=== PATIENT | female | born 1955 | race Caucasian/White ===

== ENCOUNTER 2017-12-27 15:08 | Inpatient (IN) ==
[2017-12-27] MEDS ORDERED: D5% in Water 1,000 ML IVC PRN (17:56)
[2017-12-27] MEDS ORDERED: *HR* Dextrose 50 % in Water (Syg) 50 ML SYRINGE IVP PRN (17:56)
[2017-12-27] MEDS ORDERED: Dextrose Gel 15 GM/37.5 ML TUBE PO PRN ×2 (17:56)
--- NOTE | 2017-12-27 18:01 | Anesthesia Evaluation PreOp ---
<Wiley Bhakta - Last Filed: 12/27/17 19:33> Date of Encounter: 12/27/17 Time of Encounter: 19:33 - Past History : No Medications and Allergies Amitriptyline [Elavil] 50 mg PO HS 12/27/17 [History] Aspirin 325 mg PO DAILY 12/27/17 [History] Calcitriol [Rocaltrol] 0.25 mcg PO DAILY 12/27/17 [History] Gabapentin [Neurontin] 300 mg PO TID 12/27/17 [History] Ginseng 250 mg PO DAILY 12/27/17 [History] Insulin NPH Hum/Reg Insulin Hm [Novolin 70-30 100 Unit/ml Vial] 35 unit SQ BID 12/27/17 [History] Lisinopril [Zestril] 5 mg PO DAILY 12/27/17 [History] Ranitidine HCl [Zantac] 150 mg PO DAILY 12/27/17 [History] Sertraline [Zoloft] 100 mg PO BID 12/27/17 [History] 3 Allergy/AdvReac Type Severity Reaction Status Date / Time ibuprofen [From Motrin] Allergy Rash Verified 12/27/17 13:25 Anesthesia Results - Labs 12/27/17 18:21 12/27/17 18:21 Anesthesia Exam - HEENT Pupil (Motor): Pupils equal, EOMI Mallampati: III Teeth: Edentulous Denture Type: Upper: Complete, Lower: Complete Oral Opening: Greater than 3 - MANAGER FLOAT MANAGER FLOAT Motor: Normal RUE, Normal LUE, Normal RLE, Normal LLE, Normal Face MANAGER FLOAT Sensory: Normal: RUE, LUE, RLE, LLE, Face - Cardiac Rhythm: Regular Murmur: None JVD: No Carotid Bruit: No - Pulmonary Breath Sounds: bilateral Clear Respiratory Effort: Symmetrical Anesthesia Assess/Plan ASA Score: 3 Modified [place] Scale for Level of Consciousness: Cooperative, oriented, and tranquil Anesthetic Plan: MAC Autologous Blood: Yes Monitoring Plan: Standard Monitors Recovery Plan: Other <Elgin Echevarria - Last Filed: 12/27/17 19:44> Date of Encounter: 12/27/17 - Past History Planned Operation: I & D Right Foot Cardiac History: HTN Pulmonary History: Smoker MANAGER FLOAT History: Denies Any Significant HX Other Medical History: Diabetes Type II, GERD Anesthesia History: No Prior Anesthetic Complications, Past Anesthesia Alcohol Use: occasionally Drug use: none - Meds/Allergy Pre-op Review Medications Reviewed: Yes Allergies Reviewed: Yes Beta Blockers on Current Med List: No Anesthesia Results - Labs 12/27/17 18:21 12/27/17 18:21 Laboratory Tests 12/27/17 12/27/17 13:48 13:48 WBC 17.3 H Hgb 11.9 Hct 35.4 Plt Count 320 Sodium 124 L Potassium 5.8 H BUN 29 H Creatinine 2.39 H Anesthesia Exam Vital Signs/O2 Sat/Glucose, Most Recent Temp Pulse Resp BP Pulse Ox 98.6 F 59 18 93/55 95 12/27/17 17:31 12/27/17 17:31 12/27/17 17:31 12/27/17 17:31 12/27/17 17:31 Blood Glucose* 184 Height: 5'9''/1.75 m Weight: 227 lbs/103 kg NPO (# of Hours): 8 Pain Scale: 0 Pain Scale Used: Numeric (1 - 10) - MANAGER FLOAT LOC: Oriented MANAGER FLOAT Motor: Normal RUE, Normal LUE, Normal RLE, Normal LLE, Normal Face MANAGER FLOAT Sensory: Normal: RUE, LUE, Face, Deficit: RLE, LLE
[2017-12-27 18:35] LABS: Basophils # 0.1 K/mcL (0.0-0.2); Basophils % 0.3 %; Eosinophils # 0.1 K/mcL (0.0-0.6); Eosinophils % 0.4 %; Hematocrit 33.7 % (35.3-44.9); Hemoglobin 10.9 g/dL (11.5-15.4); Immature Granulocytes % 0.9 % (0-4); Lymphocytes # 1.8 K/mcL (0.6-4.6); Lymphocytes % 11.1 %; Mean Corpuscular HGB Conc 32.3 g/dL (31.6-35.5); Mean Corpuscular Hemoglobin 27.5 pg (28.0-33.3); Mean Corpuscular Volume 85.1 fL (83.0-100.0); Mean Platelet Volume 9.8 fL (9.4-12.4); Monocytes # 1.4 K/mcL (0.0-1.3); Monocytes % 8.9 %; Neutrophils # 12.5 K/mcL (1.6-8.9); Platelet Count 307 K/mcL (140-400); Red Blood Count 3.96 M/mcL (3.82-4.97); Red Cell Distribution Width 12.9 % (11.5-14.5); Segmented Neutrophils % 78.4 %
[2017-12-27 18:57] LABS: Albumin 3.1 g/dL (3.5-5.7); Albumin/Globulin Ratio 0.7 (1.1-2.2); Bilirubin,Direct 0.3 mg/dL (0.0-0.2); Bilirubin,Indirect 0.1 mg/dL (0.0-1.2); Bilirubin,Total 0.4 mg/dL (0.3-1.0); Calcium 8.7 mg/dL (8.6-10.3); Globulin 4.3 g/dL (2.4-3.5); Magnesium 1.6 mg/dL (1.6-2.6); Potassium 4.5 mEq/L (3.5-5.1); Total Protein 7.4 g/dL (6.4-8.9)
[2017-12-27] MEDS ORDERED: Bupivacaine/Clonidine Syringe 1 EACH SYRINGE ONE (19:19)
--- NOTE | 2017-12-27 19:23 | Podiatry Consult Note ---
Date of Encounter: 12/27/17 Time of Encounter: 19:19 Assessment and Plan (1) Osteomyelitis of foot, right, acute Current visit: No Status: Acute Due to the likely osteomyelitis/infection/gas in the tissue we will pursue early surgical intervention. Incision and drainage was discussed with the patient. The patient was also instructed that she may have a large laceration on the plantar aspect of her foot to debride any and necrotic tissue. The patient related understanding. I instructed the patient also that there is a possibility that this salvage procedure being performed tonight will not be successful and that she may require amputation at a later time. The patient was also instructed that she needs to control her blood glucose levels more appropriately to be able to heal. The patient was instructed that there is a good probability that she will not heal and will have continued infection if she does not control her glucose more carefully. The patient related understanding. The exact procedure discussed was inches and drainage with debridement and irrigation of the left foot ulceration sites with possible amputation/resection of bone.Patient was informed of the risks and complications of surgery. These may include but are not limited to the following ; nerve damage, numbness, tingling, RSD/CRPS, loss of motor function, loss of toe, loss of limb, loss of life, ischemia, wound healing issues, infection, scarring, keloid formation, continued pain, arthritis, non-union, mal-union, prominent hardware, displaced hardware, reaction to hardware, the need to remove hardware, bruising, continued limp, the need for future surgery, over correction, under correction, chronic swelling, the need for physical therapy, stiffness of joints, ulceration, slow healing, wound dehiscence, reaction to implant, reaction to sutures. The patient was informed of the possible conservative treatments available which may include but are not limited to the following: Orthotics, bracing, non -weight bearing, physical therapy, padding, taping, steroid injections, NSAIDS, casting. The patient was given the option to seek a second opinion. It was explained that surgery is an art and not an exact science therefore results cannot be guaranteed. All the patients questions and concerns were addressed. Patient agrees to have the surgery despite the possible risks and complications. Absolutely no guarantees were given or implied. History of Present Illness Chief complaint: ulcerations bilateral feet. HPI: Ms. Vallejo is a 62 year old female who states that she does not control her blood sugar very well. Patient relates that she does not use her diabetic shoes very often. Patient relates that she has multiple ulcers on her feet. Patient relates that recently her left foot began to show signs of infection and presented to the emergency department due to that. Past Med Surg Social Fam HX - Past Medical History Medical history: arthritis, COPD, diabetes, hypertension, thyroid disease Psychiatric history: no psych history - Social History Smoking Status: Former smoker Alcohol use: occasionally Drug use: none Medications and Allergies Amitriptyline [Elavil] 50 mg PO HS 12/27/17 [History] Aspirin 325 mg PO DAILY 12/27/17 [History] Calcitriol [Rocaltrol] 0.25 mcg PO DAILY 12/27/17 [History] Gabapentin [Neurontin] 300 mg PO TID 12/27/17 [History] Ginseng 250 mg PO DAILY 12/27/17 [History] Insulin NPH Hum/Reg Insulin Hm [Novolin 70-30 100 Unit/ml Vial] 35 unit SQ BID 12/27/17 [History] Lisinopril [Zestril] 5 mg PO DAILY 12/27/17 [History] Ranitidine HCl [Zantac] 150 mg PO DAILY 12/27/17 [History] Sertraline [Zoloft] 100 mg PO BID 12/27/17 [History] 3 Allergy/AdvReac Type Severity Reaction Status Date / Time ibuprofen [From Motrin] Allergy Rash Verified 12/27/17 13:25 All Systems Reviewed: The remainder of the systems were reviewed and are negative Physical Exam - Constitutional Vitals: Temp Pulse Resp BP Pulse Ox 100.1 F H 112 17 94/74 94 12/27/17 19:02 12/27/17 19:02 12/27/17 19:02 12/27/17 19:02 12/27/17 19:02 Exam: Pedal pulses faintly palpable. Capillary fill time intact to digits 1 through 5 bilaterally. There are no open lesions, abrasions, or ulcerations of the rear foot, there are only ulcerations on the plantar aspect of the left and right forefoot. Multiple ulcerations are noted measuring from 1 cm in diameter to 2 cm in diameter with fluctuance and purulence on the left foot ulceration sites. Radiographic exam confirms the ulceration sites. Sensation significantly diminished consistent with peripheral neuropathy. The patient is awake, alert, and oriented 3 and appears to be in no acute distress. Results - Labs Result Diagrams: 12/27/17 18:21 12/27/17 18:21 Labs: Abnormal lab results WBC 15.9 K/mcL (4.3-11.1) H 12/27/17 18:21 Hgb 10.9 g/dL (11.5-15.4) L 12/27/17 18:21 Hct 33.7 % (35.3-44.9) L 12/27/17 18:21 MCH 27.5 pg (28.0-33.3) L 12/27/17 18:21 Neutrophils # 12.5 K/mcL (1.6-8.9) H 12/27/17 18:21 Monocytes # 1.4 K/mcL (0.0-1.3) H 12/27/17 18:21 Sodium 131 mEq/L (136-145) L 12/27/17 18:21 Carbon Dioxide 20 mEq/L (23-29) L 12/27/17 18:21 BUN 28 mg/dL (8-23) H 12/27/17 18:21 Creatinine 2.35 mg/dL (0.60-1.20) H 12/27/17 18:21 Est GFR ( Amer) 25 (> 60) L 12/27/17 18:21 Est GFR (Non-Af Amer) 21 (> 60) L 12/27/17 18:21 Glucose 175 mg/dL (70-105) H 12/27/17 18:21 Direct Bilirubin 0.3 mg/dL (0.0-0.2) H 12/27/17 18:21 AST 7 Units/L (13-39) L 12/27/17 18:21 Albumin 3.1 g/dL (3.5-5.7) L 12/27/17 18:21 Globulin 4.3 g/dL (2.4-3.5) H 12/27/17 18:21 Albumin/Globulin Ratio 0.7 (1.1-2.2) L 12/27/17 18:21 H & H 12/27/17 Range/Units 18:21 Hgb 10.9 L (11.5-15.4) g/dL Hct 33.7 L (35.3-44.9) % All other labs normal. Consult Discharge Plan - Plan Referrals: Elgin Hernandez CNP [Primary Care Provider] -
--- NOTE | 2017-12-27 19:44 | Internal Med History&Physical ---
Date of Encounter: 12/27/17 Time of Encounter: 19:00 Assessment and Plan (1) Osteomyelitis of foot, right, acute Current visit: No Status: Acute Patient reports of gradually worsening erythema, swelling and pain in her left foot in addition to drainage which is greenish/yellowish. Foot x-ray showed subcutaneous gas throughout the soft tissue of the distal forefoot centered at the second digit compatible with underlying gas-forming infectious process. Also noted was lucency of the base of the first proximal phalanx is suggestive of erosion of the second metatarsal head suspicious for osteomyelitis. Podiatry was consulted with recommendations for immediate surgical intervention due to suspicion for osteomyelitis/infection/gas. She will also be started on IV vancomycin and Zosyn until cultures known. (2) Uncontrolled diabetes mellitus Current visit: Yes Status: Acute Patient is a 62-year-old female with past medical history of uncontrolled diabetes (A1c 13.2) Will place on sliding scale insulin and monitor for tight glucose control Qualifiers: Diabetes mellitus type: type 2 Qualified Code(s): E11.65 - Type 2 diabetes mellitus with hyperglycemia; Z79.4 - prison (current) use of insulin; Z79.4 - long term (current) use of insulin; Z79.4 - prison (current) use of insulin ; Z79.4 - prison (current) use of insulin (3) CKD (chronic kidney disease) stage 3, GFR 30-59 ml/min Current visit: Yes Status: Acute Creatinine 2.35 today which is close to baseline Will continue to monitor (4) HTN (hypertension), benign Current visit: Yes Status: Acute Controlled; continue home medications (5) Mood disorder Current visit: Yes Status: Acute Continue home medications Internal Medicine - H&P: HPI Chief complaint: Left foot pain Plans for Post Hospital Care: Home History of present illness: Patient is a 62-year-old female with past medical history of uncontrolled diabetes (A1c 13.2), chronic kidney disease stage III, hypertension and obesity (BMI 33.6) who presents to [facility] on 12/27/17 due to left foot pain and swelling. Patient states that she had a callus on her left foot which she picked at and since then, has had gradually worsening erythema, swelling and pain in her left foot. Patient also reports of drainage which is greenish/yellowish. Foot x-ray showed subcutaneous gas throughout the soft tissue of the distal forefoot centered at the second digit compatible with underlying gas-forming infectious process. Also noted was lucency of the base of the first proximal phalanx is suggestive of erosion of the second metatarsal head suspicious for osteomyelitis. Podiatry was consulted with recommendations for immediate surgical intervention due to suspicion for osteomyelitis/infection/gas. She will also be started on IV vancomycin and Zosyn until cultures known. Past Med Surg Social Fam HX - Past Medical History Medical history: arthritis, COPD, diabetes, hypertension, thyroid disease Psychiatric history: no psych history - Past Surgical History Surgical History: non-contributory - Social History Smoking Status: Former smoker Alcohol use: occasionally Drug use: none Internal Medicine - H&P: Meds Amitriptyline [Elavil] 50 mg PO HS 12/27/17 [History] Aspirin 325 mg PO DAILY 12/27/17 [History] Calcitriol [Rocaltrol] 0.25 mcg PO DAILY 12/27/17 [History] Gabapentin [Neurontin] 300 mg PO TID 12/27/17 [History] Ginseng 250 mg PO DAILY 12/27/17 [History] Insulin NPH Hum/Reg Insulin Hm [Novolin 70-30 100 Unit/ml Vial] 35 unit SQ BID 12/27/17 [History] Lisinopril [Zestril] 5 mg PO DAILY 12/27/17 [History] Ranitidine HCl [Zantac] 150 mg PO DAILY 12/27/17 [History] Sertraline [Zoloft] 100 mg PO BID 12/27/17 [History] 3 Allergy/AdvReac Type Severity Reaction Status Date / Time ibuprofen [From Motrin] Allergy Rash Verified 12/27/17 13:25 All Systems PM: A 10-system review of systems was performed and is negative for pertinent findings except as documented above in the HPI. - Constitutional Vitals: Temp Pulse Resp BP Pulse Ox 100.1 F H 112 17 94/74 94 12/27/17 19:02 12/27/17 19:02 12/27/17 19:02 12/27/17 19:02 12/27/17 19:02 General appearance: Present: A&O X 3 - Head Head exam: Present: normocephalic - Eye Eye exam: Present: normal appearance - ENT ENT exam: Present: mucous membranes moist - Respiratory Respiratory exam: Present: CTAB. Absent: accessory muscle use, rales, rhonchi, wheezes - Cardiovascular Cardiovascular exam: Present: RRR, +S1, +S2. Absent: diastolic murmur, gallop, rubs, systolic murmur - GI/Abdominal GI/Abdominal exam: Present: normal bowel sounds, soft, no peritoneal signs. Absent: distended, tenderness - Expanded Lower Extremities Exam Foot/Toe exam: Present: swelling, tenderness (Erythematous and edematous left foot with foul smell) - Neurological Exam Neurological exam: Present: oriented X3 - Psychiatric Psychiatric exam: Present: normal mood - Skin Skin exam: Present: erythema (Left foot) Internal Med - H&P Results - Labs CBC & Chem 7: 12/27/17 18:21 12/27/17 18:21 Labs: Short CBC 12/27/17 Range/Units 18:21 WBC 15.9 H (4.3-11.1) K/mcL Hgb 10.9 L (11.5-15.4) g/dL Hct 33.7 L (35.3-44.9) % Plt Count 307 (140-400) K/mcL Neutrophils # 12.5 H (1.6-8.9) K/mcL BMP 12/27/17 18:21 Sodium 131 L Potassium 4.5 Chloride 101 Carbon Dioxide 20 L BUN 28 H Creatinine 2.35 H Glucose 175 H Calcium 8.7 Liver Function 12/27/17 Range/Units 18:21 Total Bilirubin 0.4 (0.3-1.0) mg/dL Direct Bilirubin 0.3 H (0.0-0.2) mg/dL AST 7 L (13-39) Units/L ALT 8 (7-52) Units/L Alkaline Phosphatase 96 (34-104) Units/L Albumin 3.1 L (3.5-5.7) g/dL
[2017-12-27] MEDS ORDERED: Propofol 500 MG/50 ML INFUS..BTL ONE (19:53)
[2017-12-27] MEDS ORDERED: Naloxone 0.4 MG/ML INJ IVP PRN (20:04)
[2017-12-27] MEDS ORDERED: *HR* FentaNYL (PF) 100 MCG/2 ML VIAL ONE (20:10)
[2017-12-27] MEDS ORDERED: Dexamethasone 4 MG/ML VIAL ONE (20:19)
[2017-12-27] MEDS ORDERED: Ondansetron 4 MG/2 ML VIAL ONE (20:19)
[2017-12-27] MEDS ORDERED: Insulin LISPRO 300 UNITS/3 ML VIAL SQ SCH (21:00)
[2017-12-27] MEDS ORDERED: Acetaminophen 325 MG TABLET PO PRN (22:03)
[2017-12-27] MEDS: *HR* HYDROcodone/Acet 5/325 mg TABLET PO PRN (22:39)
--- NOTE | 2017-12-27 23:36 | Event Note ---
Date of Encounter: 12/27/17 Time of Encounter: 21:46 Alerted by patient's nurse Chary that patient was post I&D and complaining of 7/10 pain in her foot. Patient also was nothing by mouth for procedure. Nurse was instructed to monitor vital signs every 30 minutes due to low BP. I was notified at 22:22 the patient's SBP was now and 130s. Due to patient's increase in blood pressure, stairstep pain medications were ordered for pain. Nothing by mouth order canceled and replacement 88 diet. Patient to be monitored closely.
[2017-12-28] MEDS ORDERED: Piperacillin/Tazobactam 3.375 GM in 0.9 % Sodium Chloride Mini Bag 100 ML IVPB SCH
[2017-12-28] MEDS: *HR* OxyCODONE/APAP 7.5/325 TABLET PO PRN ×3 (03:44→19:56)
[2017-12-28 04:53] LABS: Basophils # 0.1 K/mcL (0.0-0.2); Basophils % 0.3 %; Hematocrit 32.5 % (35.3-44.9); Hemoglobin 10.4 g/dL (11.5-15.4); Immature Granulocytes % 1.6 % (0-4); Lymphocytes # 0.8 K/mcL (0.6-4.6); Lymphocytes % 4.4 %; Mean Corpuscular Hemoglobin 27.7 pg (28.0-33.3); Mean Corpuscular Volume 86.7 fL (83.0-100.0); Monocytes # 1.1 K/mcL (0.0-1.3); Monocytes % 6.7 %; Neutrophils # 14.9 K/mcL (1.6-8.9); Platelet Count 293 K/mcL (140-400); Red Blood Count 3.75 M/mcL (3.82-4.97); Red Cell Distribution Width 13.1 % (11.5-14.5)
[2017-12-28 05:14] LABS: Calcium 8.2 mg/dL (8.6-10.3); Potassium 5.9 mEq/L (3.5-5.1)
--- NOTE | 2017-12-28 07:41 | Operative Note ---
Date of procedure: 12/27/17 Pre-op diagnosis: Left foot infection with gas and osteomyelitis Post-op diagnosis: same Procedure: Incision and drainage of left foot first metatarsal phalangeal joint with incision to bone cortex with bone biopsy of first proximal phalanx and first metatarsal. Incision and drainage of the left foot fifth metatarsal phalangeal joint ulceration with debridement and irrigation. Implants: None Complications: None Anesthesia: MAC Surgeon: Roberto Johnson Was there an delivery assistant present: No Estimated blood loss (cc): 10 Specimen: None Condition: stable Disposition: floor Procedure in Detail: The patient was administered IV antibiotics. The patient was transported to the operative room and placed on operating table. Following anesthesia the extremity was scrubbed prepped and draped in the usual aseptic fashion. A timeout was performed. An incision was made and deepened through subcutaneous tissue with care taken to identify and retract all vital neurovascular structures. The incision was made over the plantar aspect of the first metatarsal phalangeal joint. There is noted to be gas exiting the site as the incision was made in significant malodor noted. There was also noted to be significant amounts of purulent drainage. The purulent drainage was noted to be in contact with the bone. The length of the incision was approximately 5 cm in length along the plantar aspect of the foot and the debridement consisted of epidermis, dermis, subcutaneous, fascia, tendon, bone. As the incision was deepened more purulence was noted and an incision was made to the cortex of the first proximal phalanx and first metatarsal head. There was noted to be an infected portion of the bone, the incision was made to gain access to the infected bone and then the bone was incised, the periosteum was reflected to view the outer membrane of the bone the outer membrane of the bone of the first metatarsal was divided and the infected portion of bone was scraped away from the area was washed with irrigation. Cultures were obtained as well as a portion of bone for bone biopsy. Attention was then directed to the proximal phalanx of the great toe, the proximal aspect was incised and the periosteum was reflected, the outer membrane of bone was exposed which was noted to be infected as well. The obvious infected bone was scraped away and the infected portion was removed and sent for biopsy with the metatarsal bone as well. The area was washed with antibiotic solution. Rather than closing the wound, the site was left open to drain. Attention was then directed to the additional abscess on the dorsal medial aspect of the foot. An additional incision was made on the dorsal aspect of the foot for additional abscess noted at the first interspace/dorsal aspect of the foot. The gas and purulence was expressed from the site and the site was also irrigated thoroughly. The length of the dorsal incision was approximately 3 cm long and the debridement consisted of epidermis, dermis, subcutaneous, tendon, fascia. The ulceration on the lateral aspect of the foot sub-fifth metatarsal head was then addressed. Tissue was debrided from the ulceration site and abscess site. The debridement consisted of dermis, epidermis, subcutaneous, fascia. The size of the ulcer was approximately 2 cm in diameter and 7 mm in depth. Only slight purulence was noted at this site. After all irrigation was complete and adequate irrigation was complete the decision was made to utilize iodoform gauze to pack the site. The sites were packed and the dressing was applied consisting of 4 x 4's and Kerlix. The patient tolerated the procedure and anesthesia well and was transported to the recovery room with vital signs stable and vascular status intact to both feet. The patient will be readmitted to the floor per anesthesia. The patient will need to remain nonweightbearing to the left foot. The patient will need empiric antibiotics until cultures return. The patient will need another washout and a few days due to the significant amounts of purulence. The procedure may consist of additional debridement of bone. After the next procedure we may consider utilizing a wound VAC on the site which will require additional care. The patient was instructed that this salvage procedure may fail unless she changes her lifestyle and controls/monitors her glucose more carefully. The site will be packed and repacked every 8 hours.
[2017-12-28] MEDS: Insulin NPH/REG 70/30 100 UNIT/ML (x5UNIT) SQ SCH ×2 (08:40→21:06)
[2017-12-28] MEDS: Insulin LISPRO 300 UNITS/3 ML VIAL SQ SCH ×4 (08:41→21:06)
[2017-12-28] MEDS: *HR* HYDROcodone/Acet 5/325 mg TABLET PO PRN ×2 (09:14→15:15)
[2017-12-28] MEDS ORDERED: Insulin Human Regular 10 UNIT in 0.9 % Sodium Chloride 10 ML IV ONE (10:54)
[2017-12-28] MEDS: Piperacillin/Tazobactam 3.375 GM in 0.9 % Sodium Chloride Mini Bag 100 ML IVPB SCH ×2 (12:14→23:30)
--- NOTE | 2017-12-28 13:04 | Internal Med Progress Note ---
Addendum entered and electronically signed by Elvin Yarbrough DO 12/28/17 17:02 : Patient also has colostomy in right anterior abdomen from prior ruptured hernia Appears to be functioning well with slight amount of fluid and gas in bag Original Note: <Elvin Yarbrough - Last Filed: 12/28/17 16:00> Date of Encounter: 12/28/17 Time of Encounter: 12:35 - Assessment and plan (1) Sepsis Current Visit: Yes Status: Acute Assessment and plan: 3 SIRS criteria present: Febrile, leukocytosis, tachycardia Suspected source from diabetic ulcer/osteomyelitis Current organism unknown Lactic acid of presentation 1.5 Qualifiers: Sepsis type: sepsis due to unspecified organism Qualified Code(s): A41.9 - Sepsis, unspecified organism (2) Osteomyelitis Current Visit: Yes Status: Acute Assessment and plan: Patient presented to [place] with left foot pain and swelling Found to have imaging suspicious for osteomyelitis with gas in her left foot Zosyn Taken for surgery on 12/27/17 for I&D with cultures We will continue vancomycin and Zosyn Day to Podiatry consulted and appreciate continued assistance with management/care We will wait for wound cultures Qualifiers: Osteomyelitis type: other acute Osteomyelitis location: foot Laterality: left Qualified Code(s): M86.172 - Other acute osteomyelitis, left ankle and foot (3) Acute on chronic kidney failure Current Visit: Yes Status: Acute Assessment and plan: Patient has history of chronic kidney disease stage III with baseline serum creatinine of 1.4 and baseline GFR of 40 Presented with decreased renal function with serum creatinine around 2.3 and GFR of 21 Likely due to patient infection We will treat patient infection as above Avoid potential nephrotoxic agents We will monitor chemistry daily Qualifiers: Acute renal failure type: unspecified Chronic kidney disease stage: stage 3 (moderate) Qualified Code(s): N17.9 - Acute kidney failure, unspecified; N18.3 - Chronic kidney disease, stage 3 (moderate); N18.3 - Chronic kidney disease, stage 3 (moderate) (4) Hyperkalemia Current Visit: Yes Status: Acute Assessment and plan: Presented with potassium 5.8, but uncontrolled diabetes Did improve to 4.5 31 and was given 10 units IV insulin with improvement of potassium to 4.5 Patient hyperkalemia likely due to uncontrolled diabetes and hyperglycemia We will continue to monitor potassium closely (5) 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 Current Visit: Yes Status: Chronic Assessment and plan: Patient takes 35 units twice a day she will and at home Patient hemoglobin A1c found to be 13.2 on 12/13/17 Has been significantly hyperglycemic with blood sugars ranging between the mid 400s to low 200s We will have high-dose insulin sliding scale We will readjust insulin administration tomorrow Qualifiers: Diabetes mellitus alf insulin use: with alf use Diabetes mellitus complication detail: with neuropathic arthropathy Qualified Code(s): 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; E08.65 - Diabetes mellitus due to underlying condition with hyperglycemia; E08.65 - Diabetes mellitus due to underlying condition with hyperglycemia; E08.65 - Diabetes mellitus due to underlying condition with hyperglycemia; E08.65 - Diabetes mellitus due to underlying condition with hyperglycemia; 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; Z79.4 - retirement ( current) use of insulin; 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 She reports having some mild chills and fevers overnight, but denies any diaphoresis, shortness of breath, chest pain. She does report that she has continued to have some tenderness of her right lower extremity, but it is improved overall from previous. - Constitutional Vitals: Temp Pulse Resp BP Pulse Ox 97.3 F L 89 16 122/64 100 12/28/17 10:55 12/28/17 10:55 12/28/17 10:55 12/28/17 10:55 12/28/17 10:55 General appearance: Present: A&O X 3 Exam: General: Cooperative, pleasant, no acute distress, alert and oriented 3, answers questions appropriately, obese HEENT: Normocephalic, atraumatic, Conjunctiva pink, sclera anicteric, oral mucosa moist Respiratory: No accessory muscle usage, clear to auscultation bilaterally, no wheezes/rhonchi/rales appreciated Cardiovascular: Regular rate and rhythm, S1 and S2 present, no murmurs/rubs/ gallops/clicks appreciated GI/abdominal: Nondistended, nontender, soft, normal bowel sounds, no peritoneal signs Extremities: No calf tenderness, 1-2+ pedal edema appreciated, warm, lower extremity pulses palpable and symmetrical, area of erythema on right costa demarcated and appears slightly improved from previous marking, small wound covered in eschar on right costa and left costa, surgical dressing in place on left foot Neurological: Alert and oriented 3, no facial droop, no focal deficits Skin: Dry, intact, normal color Internal Medicine: Result - Labs CBC & Chem 7: 12/28/17 04:10 12/28/17 13:50 Labs: Short CBC 12/27/17 12/28/17 Range/Units 18:21 04:10 WBC 15.9 H 17.1 H (4.3-11.1) K/mcL Hgb 10.9 L 10.4 L (11.5-15.4) g/dL Hct 33.7 L 32.5 L (35.3-44.9) % Plt Count 307 293 (140-400) K/mcL Neutrophils # 12.5 H 14.9 H (1.6-8.9) K/mcL BMP 12/27/17 12/28/17 18:21 04:10 Sodium 131 L 128 L Potassium 4.5 5.9 H D Chloride 101 100 Carbon Dioxide 20 L 16 L BUN 28 H 32 H Creatinine 2.35 H 2.30 H Glucose 175 H 379 H Calcium 8.7 8.2 L Liver Function 12/27/17 Range/Units 18:21 Total Bilirubin 0.4 (0.3-1.0) mg/dL Direct Bilirubin 0.3 H (0.0-0.2) mg/dL AST 7 L (13-39) Units/L ALT 8 (7-52) Units/L Alkaline Phosphatase 96 (34-104) Units/L Albumin 3.1 L (3.5-5.7) g/dL Consult Discharge Plan - Plan Referrals: Elgin Hernandez CNP [Primary Care Provider] - <[place] Case - Last Filed: 12/28/17 17:36> Date of Encounter: 12/28/17 - Constitutional Vitals: Temp Pulse Resp BP Pulse Ox 98.8 F 81 18 111/70 99 12/28/17 16:30 12/28/17 16:30 12/28/17 16:30 12/28/17 16:30 12/28/17 16:30 Internal Medicine: Result - Labs CBC & Chem 7: 12/28/17 04:10 12/28/17 13:50 Labs: Short CBC 12/27/17 12/28/17 Range/Units 18:21 04:10 WBC 15.9 H 17.1 H (4.3-11.1) K/mcL Hgb 10.9 L 10.4 L (11.5-15.4) g/dL Hct 33.7 L 32.5 L (35.3-44.9) % Plt Count 307 293 (140-400) K/mcL Neutrophils # 12.5 H 14.9 H (1.6-8.9) K/mcL BMP 12/27/17 12/28/17 12/28/17 18:21 04:10 13:50 Sodium 131 L 128 L 130 L Potassium 4.5 5.9 H D 4.5 Chloride 101 100 101 Carbon Dioxide 20 L 16 L 18 L BUN 28 H 32 H 34 H Creatinine 2.35 H 2.30 H 2.27 H Glucose 175 H 379 H 225 H Calcium 8.7 8.2 L 9.2 Liver Function 12/27/17 Range/Units 18:21 Total Bilirubin 0.4 (0.3-1.0) mg/dL Direct Bilirubin 0.3 H (0.0-0.2) mg/dL AST 7 L (13-39) Units/L ALT 8 (7-52) Units/L Alkaline Phosphatase 96 (34-104) Units/L Albumin 3.1 L (3.5-5.7) g/dL - Attending Attestation I performed a [id number] diagnostic evaluation of this patient and my medical decision-making was reviewed with the Resident Physician, Dr Reg Yarbrough. I agree with the documented findings, disposition and treatment plan as described except to the extent set forth below. Physical exam: Gen: NAD, AAOx3 Heart: RRR, S1S2, no murmurs Lungs: CTABL Abdomen: S, NT, + bowel sounds Extremities: No edema. Left foot covered with surgical dressing and wrapped in gauze Plan: Continue broad-spectrum IV antibiotics. Follow up cultures. PT OT. Monitor temperature curve and WBC trend. Check ESR. [place] Case MD
[2017-12-28 14:40] LABS: Calcium 9.2 mg/dL (8.6-10.3); Potassium 4.5 mEq/L (3.5-5.1)
[2017-12-28] MEDS: *HR* Heparin 5,000 UNIT/ML VIAL SQ SCH ×2 (17:58→21:06)
[2017-12-28] MEDS: rOPINIRole 1 MG TABLET PO SCH (21:06)
[2017-12-29 05:21] LABS: Basophils % 0.2 %; Eosinophils # 0.1 K/mcL (0.0-0.6); Eosinophils % 0.4 %; Hematocrit 31.1 % (35.3-44.9); Hemoglobin 9.9 g/dL (11.5-15.4); Immature Granulocytes % 1.3 % (0-4); Lymphocytes # 1.6 K/mcL (0.6-4.6); Lymphocytes % 11.3 %; Mean Corpuscular HGB Conc 31.8 g/dL (31.6-35.5); Mean Corpuscular Hemoglobin 27.7 pg (28.0-33.3); Mean Corpuscular Volume 87.1 fL (83.0-100.0); Mean Platelet Volume 9.9 fL (9.4-12.4); Monocytes # 0.9 K/mcL (0.0-1.3); Monocytes % 6.5 %; Neutrophils # 11.5 K/mcL (1.6-8.9); Platelet Count 301 K/mcL (140-400); Red Blood Count 3.57 M/mcL (3.82-4.97); Segmented Neutrophils % 80.3 %
[2017-12-29 05:37] LABS: Calcium 8.2 mg/dL (8.6-10.3)
[2017-12-29] MEDS: *HR* OxyCODONE/APAP 7.5/325 TABLET PO PRN ×3 (05:47→21:41)
[2017-12-29] MEDS: *HR* Heparin 5,000 UNIT/ML VIAL SQ SCH ×3 (05:47→21:41)
[2017-12-29] MEDS: Insulin NPH/REG 70/30 100 UNIT/ML (x5UNIT) SQ SCH ×2 (08:14→21:55)
[2017-12-29] MEDS: Insulin LISPRO 300 UNITS/3 ML VIAL SQ SCH ×4 (08:15→20:38)
--- NOTE | 2017-12-29 10:32 | Internal Med Progress Note ---
<Elvin Yarbrough - Last Filed: 12/29/17 10:57> Date of Encounter: 12/29/17 Time of Encounter: 10:20 - Assessment and plan (1) Sepsis Current Visit: Yes Status: Acute Assessment and plan: Now resolved 3 SIRS criteria present at admission: Febrile, leukocytosis, tachycardia Suspected source from diabetic ulcer/osteomyelitis Current organism unknown Lactic acid of presentation 1.5 Qualifiers: Sepsis type: sepsis due to unspecified organism Qualified Code(s): A41.9 - Sepsis, unspecified organism (2) Osteomyelitis Current Visit: Yes Status: Acute Assessment and plan: Patient presented to [place] with left foot pain and swelling Found to have imaging suspicious for osteomyelitis with gas in her left foot Zosyn Taken for surgery on 12/27/17 for I&D with cultures Preliminary wound cultures negative for growth We will continue vancomycin and Zosyn Day 3 Podiatry consulted and appreciate continued assistance with management/care We will wait for wound cultures Will likely consult ID tomorrow for assistance with future management and likely need for salvage determiner antibiotics Qualifiers: Osteomyelitis type: other acute Osteomyelitis location: foot Laterality: left Qualified Code(s): M86.172 - Other acute osteomyelitis, left ankle and foot (3) Acute on chronic kidney failure Current Visit: Yes Status: Acute Assessment and plan: Patient has history of chronic kidney disease stage III with baseline serum creatinine of 1.4 and baseline GFR of 40 Presented with decreased renal function with serum creatinine around 2.3 and GFR of 21 Further worsen his serum creatinine seen today Likely due to patient infection and possibly from vancomycin as well If renal function continues to deteriorate, will switch patient to Zyvox until sensitivities better known We will treat patient infection as above Encourage greater amount of oral intake Avoid potential nephrotoxic agents We will monitor chemistry daily Qualifiers: Acute renal failure type: unspecified Chronic kidney disease stage: stage 3 (moderate) Qualified Code(s): N17.9 - Acute kidney failure, unspecified; N18.3 - Chronic kidney disease, stage 3 (moderate); N18.3 - Chronic kidney disease, stage 3 (moderate) (4) Hyperkalemia Current Visit: Yes Status: Resolved Assessment and plan: Presented with potassium 5.8, but uncontrolled diabetes Was given 10 units IV insulin with improvement of potassium to 4.5 Patient hyperkalemia likely due to uncontrolled diabetes and hyperglycemia Resolution of patient hyperkalemia seen with control patient blood sugar We will continue to monitor potassium closely (5) 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 Current Visit: Yes Status: Chronic Assessment and plan: Patient takes 35 units twice a day she will and at home Patient hemoglobin A1c found to be 13.2 on 12/13/17 Has been significantly hyperglycemic with blood sugars ranging between the mid 400s to low 200s We will have high-dose insulin sliding scale We will readjust insulin administration tomorrow Qualifiers: Diabetes mellitus custodial insulin use: with custodial use Diabetes mellitus complication detail: with neuropathic arthropathy Qualified Code(s): 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; E08.65 - Diabetes mellitus due to underlying condition with hyperglycemia; E08.65 - Diabetes mellitus due to underlying condition with hyperglycemia; E08.65 - Diabetes mellitus due to underlying condition with hyperglycemia; E08.65 - Diabetes mellitus due to underlying condition with hyperglycemia; Z79.4 - detention (current) use of insulin; Z79.4 - detention ( current) use of insulin; Z79.4 - detention (current) use of insulin; Z79.4 - detention (current) use of insulin (6) Mood disorder Current Visit: Yes Status: Acute Assessment and plan: Stable continue home medications (7) Hypertension Current Visit: Yes Status: Acute Assessment and plan: Controlled on home medications Qualifiers: Hypertension type: essential hypertension Qualified Code(s): I10 - Essential (primary) hypertension (8) DVT prophylaxis Current Visit: Yes Status: Acute Assessment and plan: SCDs Heparin subcutaneous 3 times a day - Subjective Interval history: Patient resting comfortably. She reports having mild discomfort in her left foot, but is overall improved from previous. She denies having any fever/chills , abdominal pain, nausea or vomiting, diarrhea, or constipation. - Constitutional Vitals: Temp Pulse Resp BP Pulse Ox 97.9 F 77 18 123/73 95 12/29/17 07:49 12/29/17 07:49 12/29/17 07:49 12/29/17 07:49 12/29/17 07:49 General appearance: Present: A&O X 3 Exam: General: Cooperative, pleasant, no acute distress, alert and oriented 3, answers questions appropriately, obese HEENT: Normocephalic, atraumatic, Conjunctiva pink, sclera anicteric, oral mucosa moist Respiratory: No accessory muscle usage, clear to auscultation bilaterally, no wheezes/rhonchi/rales appreciated Cardiovascular: Regular rate and rhythm, S1 and S2 present, no murmurs/rubs/ gallops/clicks appreciated GI/abdominal: Nondistended, mild discomfort in right lower quadrant, soft, normal bowel sounds, no peritoneal signs, colostomy in place in right anterior abdomen, appears to be functioning well Extremities: No calf tenderness, 1+ pedal edema appreciated, warm, lower extremity pulses palpable and symmetrical, surgical dressing in place on left foot Neurological: Alert and oriented 3, no facial droop, no focal deficits Skin: Dry, intact, normal color Internal Medicine: Result - Labs CBC & Chem 7: 12/29/17 05:02 12/29/17 05:02 Labs: Short CBC 12/29/17 Range/Units 05:02 WBC 14.3 H (4.3-11.1) K/mcL Hgb 9.9 L (11.5-15.4) g/dL Hct 31.1 L (35.3-44.9) % Plt Count 301 (140-400) K/mcL Neutrophils # 11.5 H (1.6-8.9) K/mcL BMP 12/28/17 12/29/17 13:50 05:02 Sodium 130 L 132 L Potassium 4.5 4.0 Chloride 101 103 Carbon Dioxide 18 L 21 L BUN 34 H 45 H Creatinine 2.27 H 2.46 H Glucose 225 H 180 H Calcium 9.2 8.2 L - VTE Documentation of Mechanical Device: Intermittent pneumatic compression device Consult Discharge Plan - Plan Referrals: Elgin Hernandez CNP [Primary Care Provider] - <[place] Case - Last Filed: 12/29/17 20:08> Date of Encounter: 12/29/17 - Constitutional Vitals: Temp Pulse Resp BP Pulse Ox 97.8 F 88 18 131/77 98 12/29/17 18:36 12/29/17 18:36 12/29/17 18:36 12/29/17 18:36 12/29/17 18:36 Internal Medicine: Result - Labs CBC & Chem 7: 12/29/17 05:02 12/29/17 05:02 Labs: Short CBC 12/29/17 Range/Units 05:02 WBC 14.3 H (4.3-11.1) K/mcL Hgb 9.9 L (11.5-15.4) g/dL Hct 31.1 L (35.3-44.9) % Plt Count 301 (140-400) K/mcL Neutrophils # 11.5 H (1.6-8.9) K/mcL BMP 12/29/17 05:02 Sodium 132 L Potassium 4.0 Chloride 103 Carbon Dioxide 21 L BUN 45 H Creatinine 2.46 H Glucose 180 H Calcium 8.2 L - Attending Attestation I performed a [id number] diagnostic evaluation of this patient and my medical decision-making was reviewed with the Resident Physician, Dr Reg Yarbrough. I agree with the documented findings, disposition and treatment plan as described except to the extent set forth below. Physical exam: Gen: NAD, AAOx3 Heart: RRR, S1S2, no murmurs Lungs: CTABL Extremities: Left foot wrapped in gauze. Assessment and plan: Left foot osteomyelitis: Continue with Zosyn. Follow blood cultures. Follow- up podiatry. Follow-up blood cultures and adjust antibiotic therapy accordingly. [place] Case MD
[2017-12-29] MEDS: *HR* HYDROcodone/Acet 5/325 mg TABLET PO PRN ×2 (10:41→17:19)
[2017-12-29] MEDS: Piperacillin/Tazobactam 3.375 GM in 0.9 % Sodium Chloride Mini Bag 100 ML IVPB SCH (13:23)
[2017-12-29] MEDS: Neosporin OINT 15 GM TUBE TP SCH (13:31)
[2017-12-29] MEDS: Ondansetron 4 MG/2 ML VIAL IVP PRN (18:49)
[2017-12-29] MEDS: rOPINIRole 1 MG TABLET PO SCH (21:39)
--- NOTE | 2017-12-29 22:22 | Podiatry Progress Note ---
Date of Encounter: 12/29/17 Time of Encounter: 12:20 - Assessment and Plan (1) Osteomyelitis of foot, right, acute Current Visit: No Status: Inactive The patient will likely need an additional washout on Saturday or Saturday. The patient will likely require additional resection of bone. After the next washout the patient will likely have a wound VAC for a period of time. The patient will likely need a PICC line and 6 weeks of IV antibiotics, per infectious disease. The patient will need to minimize weightbearing to the left foot sub-that the incision site/ulceration site can heal. Subjective Principal diagnosis: Left osteomyelitis with infection and gas gangrene Interval history: Patient relates that she is feeling much better today. Patient relates that overall she feels as though there has been significant improvement. Patient relates that she does have mild pain in the left foot. Objective - Vital Signs Vital Signs: Vital Signs Temp Pulse Resp BP Pulse Ox 12/29/17 18:36 97.8 F 88 18 131/77 98 12/29/17 16:12 98.5 F 86 18 136/72 98 12/29/17 11:24 98.2 F 88 18 144/66 98 12/29/17 07:49 97.9 F 77 18 123/73 95 12/29/17 05:13 116/69 12/29/17 04:20 98.0 F 82 16 90/70 96 12/29/17 00:28 98.3 F 76 17 111/66 96 Intake and Output 12/29/17 12/29/17 12/29/17 07:59 15:59 23:59 Intake Total 600 / 600 120 / 120 120 / 120 Output Total 600 / 600 500 / 500 Balance 0 / 0 120 / 120 -380 / -380 Intake: IV Fluids 100 / 100 Zosyn 3.375 GM In 0.9 % Sodium 100 / 100 Chloride (Mini-Bag +) 100 ML @ 25 mls/hr IVPB Q12H [facility] Rx#: [id number] Oral 500 / 500 120 / 120 120 / 120 Output: Urine 600 / 600 400 / 400 Stool 100 / 100 Other: Stool Consistency liquid Stool Characteristics Normal for Patient Stool Color Brown Blood Glucose* 153 221 125 - Exam Exam: Pedal pulses faintly palpable 1/4 bilaterally. Capillary fill time intact to the digits. The ulceration sites are still present and drainage is noted. There are no new open lesions, abrasions, or ulcerations. Sensation diminished consistent with peripheral neuropathy. Patient can actively dorsiflex and plantarflex ankle and toes. - Lab Result Diagrams: 12/29/17 05:02 12/29/17 05:02 Labs: Abnormal lab results WBC 14.3 K/mcL (4.3-11.1) H 12/29/17 05:02 RBC 3.57 M/mcL (3.82-4.97) L 12/29/17 05:02 Hgb 9.9 g/dL (11.5-15.4) L 12/29/17 05:02 Hct 31.1 % (35.3-44.9) L 12/29/17 05:02 MCH 27.7 pg (28.0-33.3) L 12/29/17 05:02 Neutrophils # 11.5 K/mcL (1.6-8.9) H 12/29/17 05:02 Sodium 132 mEq/L (136-145) L 12/29/17 05:02 Carbon Dioxide 21 mEq/L (23-29) L 12/29/17 05:02 BUN 45 mg/dL (8-23) H 12/29/17 05:02 Creatinine 2.46 mg/dL (0.60-1.20) H 12/29/17 05:02 Est GFR ( Amer) 24 (> 60) L 12/29/17 05:02 Est GFR (Non-Af Amer) 20 (> 60) L 12/29/17 05:02 Glucose 180 mg/dL (70-105) H 12/29/17 05:02 POC Glucose 101 mg/dL (58-89) H 12/29/17 11:20 Calcium 8.2 mg/dL (8.6-10.3) L 12/29/17 05:02 Direct Bilirubin 0.3 mg/dL (0.0-0.2) H 12/27/17 18:21 AST 7 Units/L (13-39) L 12/27/17 18:21 Albumin 3.1 g/dL (3.5-5.7) L 12/27/17 18:21 Globulin 4.3 g/dL (2.4-3.5) H 12/27/17 18:21 Albumin/Globulin Ratio 0.7 (1.1-2.2) L 12/27/17 18:21 Vancomycin Trough 17 mcg/mL (5-10) H 12/28/17 22:44 Microbiology, Last 48 Hours 12/27/17 19:00 Wound Culture - Final Left Foot No pathogens isolated. - VTE Documentation of Mechanical Device: Intermittent pneumatic compression device Consult Discharge Plan - Plan Referrals: Elgin Hernandez CNP [Primary Care Provider] -
[2017-12-30] MEDS: Piperacillin/Tazobactam 3.375 GM in 0.9 % Sodium Chloride Mini Bag 100 ML IVPB SCH ×3 (01:03→17:29)
[2017-12-30] MEDS: *HR* Heparin 5,000 UNIT/ML VIAL SQ SCH ×3 (05:17→20:58)
[2017-12-30] MEDS: *HR* OxyCODONE/APAP 7.5/325 TABLET PO PRN ×3 (05:17→20:57)
[2017-12-30 06:06] LABS: Basophils # 0.1 K/mcL (0.0-0.2); Basophils % 0.5 %; Eosinophils # 0.1 K/mcL (0.0-0.6); Eosinophils % 0.7 %; Hematocrit 32.6 % (35.3-44.9); Hemoglobin 10.1 g/dL (11.5-15.4); Immature Granulocytes % 0.7 % (0-4); Lymphocytes # 1.7 K/mcL (0.6-4.6); Lymphocytes % 15.2 %; Mean Corpuscular Hemoglobin 27.4 pg (28.0-33.3); Mean Corpuscular Volume 88.6 fL (83.0-100.0); Mean Platelet Volume 10.3 fL (9.4-12.4); Monocytes # 0.8 K/mcL (0.0-1.3); Monocytes % 7.4 %; Neutrophils # 8.3 K/mcL (1.6-8.9); Platelet Count 322 K/mcL (140-400); Red Blood Count 3.68 M/mcL (3.82-4.97); Red Cell Distribution Width 13.2 % (11.5-14.5); Segmented Neutrophils % 75.5 %
[2017-12-30] MEDS: Neosporin OINT 15 GM TUBE TP SCH (06:17)
[2017-12-30 06:30] LABS: Calcium 8.3 mg/dL (8.6-10.3); Potassium 4.6 mEq/L (3.5-5.1)
[2017-12-30] MEDS: Insulin LISPRO 300 UNITS/3 ML VIAL SQ SCH ×4 (08:04→20:49)
--- NOTE | 2017-12-30 10:06 | Internal Med Progress Note ---
<Elvin Yarbrough - Last Filed: 12/30/17 11:01> Date of Encounter: 12/30/17 Time of Encounter: 09:35 - Assessment and plan (1) Sepsis Current Visit: Yes Status: Acute Assessment and plan: Now resolved 3 SIRS criteria present at admission: Febrile, leukocytosis, tachycardia Suspected source from diabetic ulcer/osteomyelitis Current organism unknown Lactic acid of presentation 1.5 Qualifiers: Sepsis type: sepsis due to unspecified organism Qualified Code(s): A41.9 - Sepsis, unspecified organism (2) Osteomyelitis Current Visit: Yes Status: Acute Assessment and plan: Patient presented to [place] with left foot pain and swelling Found to have imaging suspicious for osteomyelitis with gas in her left foot Currently on Vancomycin and Zosyn Taken for surgery on 12/27/17 for I&D with cultures Preliminary wound cultures negative for growth We will continue vancomycin and Zosyn Day 4 Podiatry consulted and appreciate continued assistance with management/care We will wait for wound cultures Will consult ID and appreciate recommendations for continued management/care and assitance with coodinating halfway antibiotics Qualifiers: Osteomyelitis type: other acute Osteomyelitis location: foot Laterality: left Qualified Code(s): M86.172 - Other acute osteomyelitis, left ankle and foot (3) Acute on chronic kidney failure Current Visit: Yes Status: Acute Assessment and plan: Patient has history of chronic kidney disease stage III with baseline serum creatinine of 1.4 and baseline GFR of 40 Presented with decreased renal function with serum creatinine around 2.3 and GFR of 21 Further worsen his serum creatinine seen today Likely due to patient infection and possibly from vancomycin as well Improvement in renal function seen today We will treat patient infection as above Encourage greater amount of oral intake Avoid potential nephrotoxic agents We will monitor chemistry daily Qualifiers: Acute renal failure type: unspecified Chronic kidney disease stage: stage 3 (moderate) Qualified Code(s): N17.9 - Acute kidney failure, unspecified; N18.3 - Chronic kidney disease, stage 3 (moderate); N18.3 - Chronic kidney disease, stage 3 (moderate) (4) Hyperkalemia Current Visit: Yes Status: Resolved Assessment and plan: Presented with potassium 5.8, but uncontrolled diabetes Was given 10 units IV insulin with improvement of potassium to 4.5 Patient hyperkalemia likely due to uncontrolled diabetes and hyperglycemia Resolution of patient hyperkalemia seen with control patient blood sugar We will continue to monitor potassium closely (5) 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 Current Visit: Yes Status: Chronic Assessment and plan: Patient takes 35 units twice a day she will and at home Patient hemoglobin A1c found to be 13.2 on 12/13/17 Has been significantly hyperglycemic with blood sugars ranging between the mid 400s to low 200s We will have high-dose insulin sliding scale We will readjust insulin administration tomorrow Qualifiers: Diabetes mellitus predatory animal exterminator insulin use: with predatory animal exterminator use Diabetes mellitus complication detail: with neuropathic arthropathy Qualified Code(s): 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; E08.65 - Diabetes mellitus due to underlying condition with hyperglycemia; E08.65 - Diabetes mellitus due to underlying condition with hyperglycemia; E08.65 - Diabetes mellitus due to underlying condition with hyperglycemia; E08.65 - Diabetes mellitus due to underlying condition with hyperglycemia; Z79.4 - USP (current) use of insulin; Z79.4 - predatory animal exterminator ( current) use of insulin; Z79.4 - predatory animal exterminator (current) use of insulin; Z79.4 - USP (current) use of insulin (6) Mood disorder Current Visit: Yes Status: Acute Assessment and plan: Stable continue home medications (7) Hypertension Current Visit: Yes Status: Acute Assessment and plan: Controlled on home medications Qualifiers: Hypertension type: essential hypertension Qualified Code(s): I10 - Essential (primary) hypertension (8) DVT prophylaxis Current Visit: Yes Status: Acute Assessment and plan: SCDs Heparin subcutaneous 3 times a day - Subjective Interval history: Patient resting comfortably in bed today. She does report that she has had some continued nausea since yesterday. She does report having some vomiting as well. She does feel that the [employer] [employer] is working for her, but states that she has no appetite. She denies fevers/chills, diarrhea, and abdominal pain. She does report having some continued mild pain in her foot. - Constitutional Vitals: Temp Pulse Resp BP Pulse Ox 99.0 F 89 17 116/72 95 12/30/17 10:01 12/30/17 10:01 12/30/17 10:01 12/30/17 10:01 12/30/17 10:01 General appearance: Present: A&O X 3 Exam: General: Cooperative, pleasant, no acute distress, alert and oriented 3, answers questions appropriately, obese HEENT: Normocephalic, atraumatic, Conjunctiva pink, sclera anicteric, oral mucosa moist Respiratory: No accessory muscle usage, clear to auscultation bilaterally, no wheezes/rhonchi/rales appreciated Cardiovascular: Regular rate and rhythm, S1 and S2 present, no murmurs/rubs/ gallops/clicks appreciated GI/abdominal: Nondistended, mild discomfort in right lower quadrant, soft, normal bowel sounds, no peritoneal signs, colostomy in place in right anterior abdomen, appears to be functioning well Extremities: No calf tenderness, mild pedal edema appreciated, warm, lower extremity pulses palpable and symmetrical, surgical dressing in place on left foot Neurological: Alert and oriented 3, no facial droop, no focal deficits Skin: Dry, intact, normal color Internal Medicine: Result - Labs CBC & Chem 7: 12/30/17 03:45 12/30/17 03:45 Labs: Short CBC 12/30/17 Range/Units 03:45 WBC 11.0 (4.3-11.1) K/mcL Hgb 10.1 L (11.5-15.4) g/dL Hct 32.6 L (35.3-44.9) % Plt Count 322 (140-400) K/mcL Neutrophils # 8.3 (1.6-8.9) K/mcL BMP 12/30/17 03:45 Sodium 136 Potassium 4.6 Chloride 107 Carbon Dioxide 20 L BUN 39 H Creatinine 2.12 H Glucose 123 H Calcium 8.3 L - VTE Documentation of Mechanical Device: Intermittent pneumatic compression device Consult Discharge Plan - Plan Referrals: Elgin Hernandez CNP [Primary Care Provider] - (web request sent on 12/30/17) <Kavon Ryan - Last Filed: 12/30/17 15:18> Date of Encounter: 12/30/17 - Constitutional Vitals: Temp Pulse Resp BP Pulse Ox 99.6 F 102 16 127/78 94 12/30/17 14:35 12/30/17 14:35 12/30/17 14:35 12/30/17 14:35 12/30/17 14:35 Internal Medicine: Result - Labs CBC & Chem 7: 12/30/17 03:45 12/30/17 03:45 Labs: Short CBC 12/30/17 Range/Units 03:45 WBC 11.0 (4.3-11.1) K/mcL Hgb 10.1 L (11.5-15.4) g/dL Hct 32.6 L (35.3-44.9) % Plt Count 322 (140-400) K/mcL Neutrophils # 8.3 (1.6-8.9) K/mcL BMP 12/30/17 03:45 Sodium 136 Potassium 4.6 Chloride 107 Carbon Dioxide 20 L BUN 39 H Creatinine 2.12 H Glucose 123 H Calcium 8.3 L - Attending Attestation I performed an independent interview and exam of this patient. I agree with the findings, assessment and plan of Dr. Yarbrough, Internal Medicine resident. She sepsis has resolved. Infectious disease input is noted and appreciated. Patient is currently day 4 of antibiotics, namely Zosyn and vancomycin. Ultimately will need PICC line for long-term IV antibiotics. My understanding is she is going back to OR tomorrow for a repeat I&D. Pt otherwise states she is doing well without any complaints. Pain is presently controlled. All else as above.
[2017-12-30] MEDS: Insulin NPH/REG 70/30 100 UNIT/ML (x5UNIT) SQ SCH ×2 (10:15→20:57)
[2017-12-30] MEDS: *HR* HYDROcodone/Acet 5/325 mg TABLET PO PRN (10:25)
[2017-12-30] MEDS: Ondansetron 4 MG/2 ML VIAL IVP PRN ×2 (12:35→18:57)
--- NOTE | 2017-12-30 13:42 | Infectious Disease Consult ---
Date of Encounter: 12/30/17 Time of Encounter: 11:00 Assessment and Plan (1) Sepsis Status: Acute Assessment and plan: 62-year-old female with uncontrolled type 2 diabetes presented with tachycardia , elevated WBC around 17 and left foot osteomyelitis and wound infection associated with gas-forming bacteria. Organism from wound culture: Group B streptococci- sensitivities pending Initial lactic acid 1.5 Initial CRP 147, ESR 96 - Blood culture 12/27/2017 preliminarily no growth - Anaerobic culture from left foot 12/27/2017 pulmonary no growth. Pathology bone biopsy- results still pending. Current antibiotics Zosyn IV, vancomycin IV (day #3) CrCl: 37 Plan: Length of antibiotic coverage dependent on if patient has amputation. - No amputation may require 6 weeks of IV antibiotic therapy. - Continue monitor WBC with CBC and renal function with BMP Qualifiers: Sepsis type: sepsis due to unspecified organism Qualified Code(s): A41.9 - Sepsis, unspecified organism (2) Osteomyelitis Status: Acute Assessment and plan: Left foot osteomyelitis with gas-forming bacteria. - Bone biopsy performed 12/27/2017 with results still pending. - Wound culture from 12/27/2017 demonstrates group B strep - Patient going back to OR for further exploration and possible intervention. - Clinically improving - Current antibiotics as discussed above. - Weekly trend ESR and CRP Qualifiers: Osteomyelitis type: other acute Osteomyelitis location: foot Laterality: left Qualified Code(s): M86.172 - Other acute osteomyelitis, left ankle and foot (3) Uncontrolled diabetes mellitus Status: Acute Assessment and plan: Patient is uncontrolled type 2 diabetes, to which she admits to. - Clinical findings but correlates with long-term uncontrolled type 2 diabetes - It is vital that she maintains strict glucose regulation to improve chances of healing and prevent further infections and progressive disease. Qualifiers: Diabetes mellitus type: type 2 Diabetes mellitus penitentiary insulin use: with vermin exterminator use Diabetes mellitus complication status: with circulatory complication Diabetes mellitus complication detail: with peripheral angiopathy without gangrene Qualified Code(s): E11.51 - Type 2 diabetes mellitus with diabetic peripheral angiopathy without gangrene; E11.65 - Type 2 diabetes mellitus with hyperglycemia; E11.65 - Type 2 diabetes mellitus with hyperglycemia; E11.65 - Type 2 diabetes mellitus with hyperglycemia; E11.65 - Type 2 diabetes mellitus with hyperglycemia; Z79.4 - ad terminal makeup operator (current) use of insulin; Z79.4 - shelter (current) use of insulin; Z79.4 - ad terminal makeup operator (current ) use of insulin; Z79.4 - ad terminal makeup operator (current) use of insulin (4) CKD (chronic kidney disease) stage 3, GFR 30-59 ml/min Status: Acute Assessment and plan: Chronic likely secondary to diabetes. - Management per primary team. (5) Acute on chronic kidney failure Status: Acute Assessment and plan: Creatinine elevated beyond baseline at the time of initial evaluation. Elevation in the setting of sepsis and osteomyelitis. - Improving, management per primary team - Renally dose antibiotics and avoid nephrotoxic medications. Qualifiers: Acute renal failure type: unspecified Chronic kidney disease stage: stage 3 (moderate) Qualified Code(s): N17.9 - Acute kidney failure, unspecified; N18.3 - Chronic kidney disease, stage 3 (moderate); N18.3 - Chronic kidney disease, stage 3 (moderate) Infectious Disease HPI - Data of Consult Consult date: 12/30/17 Requesting Physician: Montana Case MD Primary Care Provider: Elgin Hernandez CNP - Consult Narrative Reason for consult: Antibiotic recommendations for osteomelitis History of present illness: Mrs. Vallejo 62-year-old female presented to [place] emergency department at the request of her primary care provider for left swollen and painful foot. Infectious disease consult placed 12/30/2017 for management of osteomyelitis. Mrs. Vallejo 62-year-old female significant past medical history of uncontrolled type 2 diabetes, CKD stage III, hypertension, CAD, obesity first noticed calluses on the bottom of her left foot roughly 3 months ago. They were irritating to her and she started to pick and cut them off doing a whole into the bottom of her foot. She states that the wounds had difficulty with healing and started to become infected for which she applied topical sulfasalazine at home. She maintained this therapy until 3 weeks ago when she presented to her primary care provider for evaluation of this left foot infection. At that time she was prescribed Bactrim which she said she completed a 7 day prescription and felt that infection was improving and healing. After completing the antibiotic therapy she was doing fine until 3 days ago when she started having progressive erythema and swelling of her left foot which progressively worsened until she presented to her PCPs office for follow-up and was advised to go to the emergency department. She denied any other symptoms including headache, change of vision, fevers, chills, diaphoresis , chest pain, palpitations, shortness of breath, productive sputum, abdominal pains, nausea vomiting diarrhea constipation or change in urination. Of note during the last 3 months she states she had a urinary tract infection roughly 1 month ago and was treated with oral Cipro with resolution of her symptoms. She denies ever having treatment of diabetic foot ulcers prior to this event. On 12/27/2017 she presented to [place] emergency department after referral from her physician's office. Upon presentation to the emergency department initial vitals demonstrated tachycardia, afebrile with appropriate respiratory rate low-pressure and oxygen saturation on room air. Initial labs were significant for an elevated WBC at 17.3, 84% segmented neutrophils and neutrophil #14.6. Chemistry panel was significant for hyponatremia, hyperkalemia and acute on chronic kidney disease, hyperglycemia with a lactic acid 1.5. A left foot x-ray was completed which demonstrated subcutaneous gas throughout the soft tissue the distal forefoot centered around the second digit , also noticed lucency of the base of the first proximal phalanx suggestive of erosion of the second metatarsal head. Patient was started on IV vancomycin and Zosyn, transferred to [facility] for podiatry intervention. Patient was seen and evaluated by podiatry upon arrival to [facility] was taken to the operative room for I&D; upon incision gases released from the plantar aspect of the foot and patient underwent debridement of purulent drainage which was also noted to be in contact with the bone. There is debridement of infected bone tissue and drainage of other abscesses and dorsal medial aspect of the foot. Cultures were collected thus far growing group B Streptococcus agalactiae. Blood culture from 12/27/2017 pulmonary no growth, anaerobic culture from left foot preliminary no growth. Upon evaluation status Yoni is resting comfortably in bed alert, awake and in no acute distress. Vitals demonstrated temp 99.0, heart rate appropriate respiratory rate appropriate, blood pressure stable oxygen saturations appropriately on room air. Laboratory results demonstrate resolution of leukocytosis, segmented neutrophil count of 75.5, chemistry panel demonstrates resolution of hyponatremia and improvement of acute on chronic kidney injury. ESR from 12/29/2017 was 96 and CRP was 147. Patient denies any fevers, chills, diaphoresis, headaches, blurry vision, shortness of breath, palpitations, cough or sputum production, abdominal pains, nausea vomiting diarrhea constipation. She states that her left foot is feeling improved since her procedure on 12/27/2017. She denies any concerning symptoms at this time. She understands the risks of uncontrolled diabetes on her wound healing and need for further exploration and potential procedures by podiatry. CC: Montana Case MD Past Med Surg Social Fam HX - Past Medical History Medical history: arthritis, COPD, diabetes, hypertension, thyroid disease Psychiatric history: no psych history - Past Surgical History Surgical History: non-contributory - Social History Smoking Status: Former smoker Alcohol use: occasionally Drug use: none Infectious Disease-CN:Meds Amitriptyline [Elavil] 50 mg PO HS 12/27/17 [History] Aspirin 325 mg PO DAILY 12/27/17 [History] Calcitriol [Rocaltrol] 0.25 mcg PO DAILY 12/27/17 [History] Gabapentin [Neurontin] 300 mg PO TID 12/27/17 [History] Ginseng 250 mg PO DAILY 12/27/17 [History] Insulin NPH Hum/Reg Insulin Hm [Novolin 70-30 100 Unit/ml Vial] 35 unit SQ BID 12/27/17 [History] Lisinopril [Zestril] 5 mg PO DAILY 12/27/17 [History] Ranitidine HCl [Zantac] 150 mg PO DAILY 12/27/17 [History] Sertraline [Zoloft] 100 mg PO BID 12/27/17 [History] 3 Allergy/AdvReac Type Severity Reaction Status Date / Time ibuprofen [From Motrin] Allergy Rash Verified 12/27/17 13:25 - Constitutional Constitutional: Absent: chills, fatigue, fever(s), headache(s), weakness - EENT Eyes: Absent: blurry vision Nose, mouth and throat: Absent: sinus pressure, sore throat - Cardiovascular Cardiovascular: Present: leg ulcers. Absent: chest pain, chest pain at rest, leg edema, rapid heart rate, slow heart rate - Respiratory Respiratory: Absent: cough, dyspnea, chest congestion - Gastrointestinal Gastrointestinal: Absent: abdominal pain, bloating, constipation, diarrhea - Genitourinary Genitourinary: Absent: dysuria, urinary frequency, urinary hesitancy, urinary incontinence, urinary urgency - Integumentary Integumentary: Present: skin ulcer, sores, swelling, wounds Exam - Constitutional Vitals: Temp Pulse Resp BP Pulse Ox 99.0 F 89 17 116/72 95 12/30/17 10:01 12/30/17 10:01 12/30/17 10:01 12/30/17 10:12/30/17 10:01 Exam: General: Patient alert, awake, oriented 3, interactive, in no acute distress HEENT: Normocephalic, atraumatic, oral mucosa moist, uvula midline, neck supple trachea midline no palpable lymphadenopathy, no thyromegaly. Chest: Symmetric bilateral correlating with respiratory effort, effort nonlabored. Cardiac: Regular rate and rhythm, positive S1 and S2. no bruits appreciated bilateral carotids, Radial pulses 2+ bilateral, posterior tibial and dorsal pedal pulses 2+ bilateral. Respiratory: Clear to auscultation all lung chapman Abdomen: Soft, nontender, positive bowel sounds, no palpable masses appreciated on examination Extremities: Symmetric bilateral, right foot demonstrates sharp cots foot, smooth skin with diminished pulses bilaterally. Left foot is wrapped without superficial erythema or edema above the ankle. Neurologic: Face symmetric, muscle strength symmetric bilateral upper and lower extremities. Infectious Disease CN: Results - Labs CBC & Chem 7: 12/30/17 03:45 12/30/17 03:45 Cultures: Cultures 12/27/17 19:00 Anaerobic Culture - Preliminary Left Foot At this time, no anaerobic growth is present. The culture will be finalized after 5 days of incubation. 12/27/17 19:00 Wound Culture - Final Left Foot No pathogens isolated. - VTE Documentation of Mechanical Device: Intermittent pneumatic compression device Consult Discharge Plan - Plan Referrals: Elgin Hernandez CNP [Primary Care Provider] - (web request sent on 12/30/17) - Attending Attestation I examined this patient and my medical decision-making was reviewed with the Resident Physician. I agree with the documented findings, disposition and treatment plan as described except to the extent set forth below. Patient is a 62 year old woman with PMH mentioned below came in with left swollen and painful foot. Patient with PMH including CKD stage III, DMII uncontrolled that is insulin dependent, CAD and obesity noticed calaces on the left foot 3 months, she started picking at them and cutting them off and she put a hole in the buttom of her foot that never healed. Pt was seen by Dr. Richards and gave her Bactrim po. IT helped her symptoms. Sx got worse again 3 days prior to admission, was seen by ortho and admitted to ED for evaluation. Since admission she was noted to have fever of 100.1F, tachycardia and WBC of 15.9 with 78% neutrophils. Cr was 2.35 was 96 with CRP of 147. Xray revealed lucency of the base of the 1st phalanx suggesting osteomyelitis. Patient underwent Incision and drainage of left foot first metatarsal phalangeal joint with incision to bone cortex with bone biopsy of first proximal phalanx and first metatarsal. Incision and drainage of the left foot fifth metatarsal phalangeal joint ulceration with debridement and irrigation. Intra op cultures didnt grow but superficial culture from outside facility grew GBS. At this point, im not sure why no cultures grew even though edil purulence was noted intra op. If MRSA was the causative organism, I feel that it would grow easily, At this point, I would do zosyn for now to wait for the cultures to finalize and then we will decide what antibiotics to use Duration at least 6 week Patient needs adequate glucose control Okay too place a picc line Weekly cbc, bmp, esr, crp
--- NOTE | 2017-12-30 16:59 | Podiatry Progress Note ---
Date of Encounter: 12/30/17 Time of Encounter: 12:45 - Assessment and Plan (1) Uncontrolled diabetes mellitus Current Visit: Yes Status: Acute Qualifiers: Diabetes mellitus type: type 2 Diabetes mellitus wrist closer insulin use: with correction use Diabetes mellitus complication status: with circulatory complication Diabetes mellitus complication detail: with peripheral angiopathy without gangrene Qualified Code(s): E11.51 - Type 2 diabetes mellitus with diabetic peripheral angiopathy without gangrene; E11.65 - Type 2 diabetes mellitus with hyperglycemia; E11.65 - Type 2 diabetes mellitus with hyperglycemia; E11.65 - Type 2 diabetes mellitus with hyperglycemia; E11.65 - Type 2 diabetes mellitus with hyperglycemia; Z79.4 - housing installer (current) use of insulin; Z79.4 - housing installer (current) use of insulin; Z79.4 - housing installer (current ) use of insulin; Z79.4 - housing installer (current) use of insulin (2) CKD (chronic kidney disease) stage 3, GFR 30-59 ml/min Current Visit: Yes Status: Acute (3) Osteomyelitis Current Visit: Yes Status: Acute S/p Incision and drainage of left foot first metatarsal phalangeal joint with incision to bone cortex with bone biopsy of first proximal phalanx and first metatarsal. Incision and drainage of the left foot fifth metatarsal phalangeal joint ulceration with debridement and irrigation by Dr. Macias 12/27/17. WBC: 11.0 Temp: 99.0 Plan: Dressing changed at bedside, wound irrigated with saline and packed with mesalt , adaptic, 4x4 dry sterile gauze and kerlix. Continue wound care as ordered. Dr. Johnson to plan for an additional washout tomorrow (12/31/17) The patient will likely require additional resection of bone. After the next washout the patient will likely have a wound VAC for a period of time. The patient will likely need a PICC line and 6 weeks of IV antibiotics, per infectious disease. The patient will need to minimize weightbearing to the left foot sub-that the incision site/ulceration site can heal. Will make NPO after midnight. Qualifiers: Osteomyelitis type: other acute Osteomyelitis location: foot Laterality: left Qualified Code(s): M86.172 - Other acute osteomyelitis, left ankle and foot Subjective Principal diagnosis: Left osteomyelitis with infection and gas gangrene Interval history: Patient is s/p incision and drainage of left foot first metatarsal phalangeal joint with incision to bone cortex with bone biopsy of first proximal phalanx and first metatarsal. Incision and drainage of the left foot fifth metatarsal phalangeal joint ulceration with debridement and irrigation by Dr. Johnson on . Patient is lying in bed with dressing intact to the left foot. Patient states her foot looks better since surgery. Patient states she did have nausea this morning. No c/o fever or chills. Objective - Vital Signs Vital Signs: Vital Signs Temp Pulse Resp BP Pulse Ox 12/30/17 14:35 99.6 F 102 16 127/78 94 12/30/17 10:01 99.0 F 89 17 116/72 95 12/30/17 03:07 98.3 F 87 16 105/70 92 12/29/17 23:22 98.2 F 93 16 114/69 96 12/29/17 19:00 97.8 F 90 17 103/64 94 12/29/17 18:36 97.8 F 88 18 131/77 98 Intake and Output 12/30/17 12/30/17 12/30/17 07:59 15:59 23:59 Intake Total 200 / 200 Output Total 200 / 200 Balance 200 / 200 -200 / -200 Intake: IV Fluids 200 / 200 Zosyn 3.375 GM In 0.9 % Sodium 200 / 200 Chloride (Mini-Bag +) 100 ML @ 25 mls/hr IVPB Q12H [facility] Rx#: [id number] Output: Emesis 200 / 200 Other: # Voids 1 0 # Bowel Movements 1 0 Weight 108.8 kg Blood Glucose* 130 135 109 Patient Weight 12/30/17 23:59 Weight 108.8 kg - Exam Exam: General appearance: alert awake oriented X 3. Calm and pleasant, no acute distress.. Vascular: Pedal pulses +2/4 DP/PT , No evidence of cyanosis, pallor or rubor, Edema graded at 1+/4, Skin Temperature warm, No calf pain with manual compression. capillary refill time is immediate to digits. Neurologic: Sensation intact with light touch to foot. . Postop Exam: S/P Open wound to the dorsum of the left foot at the base of the proximal phalanx of toe #2 measuring 2.5 cm in length x 0.5 cm in width x 1.5 cm in depth , base of wound with yellow tissue, moderate amount of serous drainage observed to packing, light periwound erythema, no odor. Full thickness surgical wound to the plantar aspect of the left foot at the 1st metatarsal head measuring 6 cm in length x 1.5 cm in width x 2 cm in depth, base of wound with yellow tissue, moderate amount of serous drainage observed to packing, no odor, light periwound erythema. - Lab Result Diagrams: 12/31/17 04:33 12/31/17 04:33 Labs: Abnormal lab results RBC 3.68 M/mcL (3.82-4.97) L 12/30/17 03:45 Hgb 10.1 g/dL (11.5-15.4) L 12/30/17 03:45 Hct 32.6 % (35.3-44.9) L 12/30/17 03:45 MCH 27.4 pg (28.0-33.3) L 12/30/17 03:45 MCHC 31.0 g/dL (31.6-35.5) L 12/30/17 03:45 ESR 96 mm/hr (0-15) H 12/29/17 22:37 Carbon Dioxide 20 mEq/L (23-29) L 12/30/17 03:45 BUN 39 mg/dL (8-23) H 12/30/17 03:45 Creatinine 2.12 mg/dL (0.60-1.20) H 12/30/17 03:45 Est GFR ( Amer) 29 (> 60) L 12/30/17 03:45 Est GFR (Non-Af Amer) 24 (> 60) L 12/30/17 03:45 Glucose 123 mg/dL (70-105) H 12/30/17 03:45 POC Glucose 130 mg/dL (58-89) H 12/30/17 07:13 Calcium 8.3 mg/dL (8.6-10.3) L 12/30/17 03:45 Direct Bilirubin 0.3 mg/dL (0.0-0.2) H 12/27/17 18:21 AST 7 Units/L (13-39) L 12/27/17 18:21 C-Reactive Protein 147 mg/L (Less than 10) H 12/29/17 22:37 Albumin 3.1 g/dL (3.5-5.7) L 12/27/17 18:21 Globulin 4.3 g/dL (2.4-3.5) H 12/27/17 18:21 Albumin/Globulin Ratio 0.7 (1.1-2.2) L 12/27/17 18:21 Vancomycin Trough 30 mcg/mL (5-10) H 12/30/17 03:45 Microbiology, Last 48 Hours 12/27/17 19:00 Anaerobic Culture - Preliminary Left Foot At this time, no anaerobic growth is present. The culture will be finalized after 5 days of incubation. 12/27/17 19:00 Wound Culture - Final Left Foot No pathogens isolated. - VTE Documentation of Mechanical Device: Intermittent pneumatic compression device Consult Discharge Plan - Plan Referrals: Elgin Hernandez CNP [Primary Care Provider] - (web request sent on 12/30/17)
[2017-12-30] MEDS: rOPINIRole 1 MG TABLET PO SCH (20:57)
[2017-12-31] MEDS: Piperacillin/Tazobactam 3.375 GM in 0.9 % Sodium Chloride Mini Bag 100 ML IVPB SCH ×3 (00:11→15:00)
[2017-12-31] MEDS: *HR* OxyCODONE/APAP 7.5/325 TABLET PO PRN ×3 (04:48→22:22)
[2017-12-31] MEDS: *HR* Heparin 5,000 UNIT/ML VIAL SQ SCH ×3 (04:48→20:54)
[2017-12-31 05:24] LABS: Basophils # 0.1 K/mcL (0.0-0.2); Basophils % 0.6 %; Eosinophils # 0.1 K/mcL (0.0-0.6); Eosinophils % 0.7 %; Hematocrit 31.6 % (35.3-44.9); Immature Granulocytes % 0.9 % (0-4); Lymphocytes # 1.6 K/mcL (0.6-4.6); Lymphocytes % 15.4 %; Mean Corpuscular HGB Conc 31.6 g/dL (31.6-35.5); Mean Corpuscular Hemoglobin 27.2 pg (28.0-33.3); Mean Corpuscular Volume 85.9 fL (83.0-100.0); Mean Platelet Volume 9.5 fL (9.4-12.4); Monocytes % 9.4 %; Neutrophils # 7.4 K/mcL (1.6-8.9); Platelet Count 291 K/mcL (140-400); Red Blood Count 3.68 M/mcL (3.82-4.97); Red Cell Distribution Width 12.9 % (11.5-14.5)
[2017-12-31 05:42] LABS: Calcium 8.8 mg/dL (8.6-10.3); Potassium 4.1 mEq/L (3.5-5.1)
[2017-12-31] MEDS: Insulin LISPRO 300 UNITS/3 ML VIAL SQ SCH ×4 (07:37→19:52)
[2017-12-31] MEDS: Insulin NPH/REG 70/30 100 UNIT/ML (x5UNIT) SQ SCH ×2 (07:38→21:01)
[2017-12-31] MEDS: Neosporin OINT 15 GM TUBE TP SCH (07:51)
[2017-12-31] MEDS ORDERED: Promethazine 12.5 MG in 0.9 % Sodium Chloride 50 ML IVPB PRN (08:16)
--- NOTE | 2017-12-31 08:18 | Internal Med Progress Note ---
<Elvin Yarbrough - Last Filed: 12/31/17 10:49> Date of Encounter: 12/31/17 Time of Encounter: 08:00 - Assessment and plan (1) Sepsis Current Visit: Yes Status: Acute Assessment and plan: Now resolved 3 SIRS criteria present at admission: Febrile, leukocytosis, tachycardia Suspected source from diabetic ulcer/osteomyelitis Current organism unknown Lactic acid of presentation 1.5 Qualifiers: Sepsis type: sepsis due to unspecified organism Qualified Code(s): A41.9 - Sepsis, unspecified organism (2) Osteomyelitis Current Visit: Yes Status: Acute Assessment and plan: Patient presented to [place] with left foot pain and swelling Found to have imaging suspicious for osteomyelitis with gas in her left foot Currently on Vancomycin and Zosyn Taken for surgery on 12/27/17 for I&D with cultures Podiatry plans for another wash out and biopsy today Wound culture from 12/27 shows group B strep We will continue vancomycin and Zosyn Day 5 Will consider deescalation, but these infections are frequently polymicrobial , so will discuss with ID Podiatry consulted and appreciate continued assistance with management/care We will wait for further wound cultures Will consult ID and appreciate recommendations for continued management/care and assistance with coordinating halfway antibiotics Qualifiers: Osteomyelitis type: other acute Osteomyelitis location: foot Laterality: left Qualified Code(s): M86.172 - Other acute osteomyelitis, left ankle and foot (3) Acute on chronic kidney failure Current Visit: Yes Status: Acute Assessment and plan: Patient has history of chronic kidney disease stage III with baseline serum creatinine of 1.4 and baseline GFR of 40 Presented with decreased renal function with serum creatinine around 2.3 and GFR of 21 Improvement in patient's renal function seen today, approaching her baseline renal function Likely due to patient infection and possibly from vancomycin as well We will treat patient infection as above Encourage greater amount of oral intake Avoid potential nephrotoxic agents We will monitor chemistry daily Qualifiers: Acute renal failure type: unspecified Chronic kidney disease stage: stage 3 (moderate) Qualified Code(s): N17.9 - Acute kidney failure, unspecified; N18.3 - Chronic kidney disease, stage 3 (moderate); N18.3 - Chronic kidney disease, stage 3 (moderate) (4) Hyperkalemia Current Visit: Yes Status: Resolved Assessment and plan: Presented with potassium 5.8, but uncontrolled diabetes Was given 10 units IV insulin with improvement of potassium to 4.5 Patient hyperkalemia likely due to uncontrolled diabetes and hyperglycemia Resolution of patient hyperkalemia seen with control patient blood sugar We will continue to monitor potassium closely (5) 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 Current Visit: Yes Status: Chronic Assessment and plan: Patient takes 35 units twice a day she will and at home Patient hemoglobin A1c found to be 13.2 on 12/13/17 Has been significantly hyperglycemic with blood sugars ranging between the mid 400s to low 200s, improvement seen and patient now having blood sugars within normal range We will have high-dose insulin sliding scale We will readjust insulin administration tomorrow Qualifiers: Diabetes mellitus halfway insulin use: with ocean transportation intermediary use Diabetes mellitus complication detail: with neuropathic arthropathy Qualified Code(s): 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; E08.65 - Diabetes mellitus due to underlying condition with hyperglycemia; E08.65 - Diabetes mellitus due to underlying condition with hyperglycemia; E08.65 - Diabetes mellitus due to underlying condition with hyperglycemia; E08.65 - Diabetes mellitus due to underlying condition with hyperglycemia; Z79.4 - [facility] (current) use of insulin; Z79.4 - [facility] ( current) use of insulin; Z79.4 - terminal press operator (current) use of insulin; Z79.4 - terminal press operator (current) use of insulin (6) Mood disorder Current Visit: Yes Status: Acute Assessment and plan: Stable continue home medications (7) Hypertension Current Visit: Yes Status: Acute Assessment and plan: Controlled on home medications Qualifiers: Hypertension type: essential hypertension Qualified Code(s): I10 - Essential (primary) hypertension (8) DVT prophylaxis Current Visit: Yes Status: Acute Assessment and plan: SCDs Heparin subcutaneous 3 times a day - Subjective Interval history: Patient resting comfortably in bed. SHe states that she has been continuing to have some nausea and vomiting. With this she also reports having some anorexia. She denies having any fevers/chills, dyspnea, CP. She does report having some continued pain in her foot, but otherwise is pain free. - Constitutional Vitals: Temp Pulse Resp BP Pulse Ox 98.4 F 91 15 117/71 96 12/31/17 07:24 12/31/17 07:24 12/31/17 07:24 12/31/17 07:24 12/31/17 07:24 General appearance: Present: A&O X 3 Exam: General: Cooperative, pleasant, no acute distress, alert and oriented 3, answers questions appropriately, obese HEENT: Normocephalic, atraumatic, Conjunctiva pink, sclera anicteric, oral mucosa moist Respiratory: No accessory muscle usage, clear to auscultation bilaterally, no wheezes/rhonchi/rales appreciated Cardiovascular: Regular rate and rhythm, S1 and S2 present, no murmurs/rubs/ gallops/clicks appreciated GI/abdominal: Nondistended, non-tender, soft, normal bowel sounds, no peritoneal signs, colostomy in place in right anterior abdomen, appears to be functioning well Extremities: No calf tenderness, mild pedal edema appreciated, warm, lower extremity pulses palpable and symmetrical, surgical dressing in place on left foot Neurological: Alert and oriented 3, no facial droop, no focal deficits Skin: Dry, intact, normal color Internal Medicine: Result - Labs CBC & Chem 7: 12/31/17 04:33 12/31/17 04:33 Labs: Short CBC 12/31/17 Range/Units 04:33 WBC 10.1 (4.3-11.1) K/mcL Hgb 10.0 L (11.5-15.4) g/dL Hct 31.6 L (35.3-44.9) % Plt Count 291 (140-400) K/mcL Neutrophils # 7.4 (1.6-8.9) K/mcL BMP 12/31/17 04:33 Sodium 134 L Potassium 4.1 Chloride 104 Carbon Dioxide 21 L BUN 29 H Creatinine 1.87 H Glucose 96 Calcium 8.8 - VTE Documentation of Mechanical Device: Intermittent pneumatic compression device Consult Discharge Plan - Plan Referrals: Elgin Hernandez CNP [Primary Care Provider] - (web request sent on 12/30/17) <Kavon Ryan - Last Filed: 12/31/17 12:06> Date of Encounter: 12/31/17 - Constitutional Vitals: Temp Pulse Resp BP Pulse Ox 98.1 F 89 15 136/89 96 12/31/17 11:32 12/31/17 11:32 12/31/17 11:32 12/31/17 11:32 12/31/17 11:32 Internal Medicine: Result - Labs CBC & Chem 7: 12/31/17 04:33 12/31/17 04:33 Labs: Short CBC 12/31/17 Range/Units 04:33 WBC 10.1 (4.3-11.1) K/mcL Hgb 10.0 L (11.5-15.4) g/dL Hct 31.6 L (35.3-44.9) % Plt Count 291 (140-400) K/mcL Neutrophils # 7.4 (1.6-8.9) K/mcL BMP 12/31/17 04:33 Sodium 134 L Potassium 4.1 Chloride 104 Carbon Dioxide 21 L BUN 29 H Creatinine 1.87 H Glucose 96 Calcium 8.8 - Attending Attestation I performed an independent interview and examine this patient. I agree with the findings, assessment, and plan Dr. Yarbrough, internal medicine resident. My input is reflected in his note. Appreciate ongoing infectious disease and podiatry input. Antibiotics as indicated above. Patient ultimately will need prolonged IV antibiotics via a PICC line. She renal function has improved and is near or at baseline. Continue to avoid nephrotoxins. Disposition once no further surgical procedures as inpatient.
[2017-12-31] MEDS ORDERED: Vancomycin 500 MG in 0.9 % Sodium Chloride Mini Bag 100 ML IVPB ONE (09:03)
[2017-12-31] MEDS: Gabapentin 300 MG CAPSULE PO SCH ×3 (09:37→20:51)
--- NOTE | 2017-12-31 09:50 | Infectious Disease Progress No ---
Date of Encounter: 12/31/17 Time of Encounter: 08:25 - Assessment and Plan (1) Sepsis Current Visit: Yes Status: Acute 62-year-old female with uncontrolled type 2 diabetes presented with tachycardia , elevated WBC around 17 and left foot osteomyelitis and wound infection associated with gas-forming bacteria. Organism from wound culture: Group B streptococci- sensitivities pending Initial lactic acid 1.5 Initial CRP 147, ESR 96 - Blood culture 12/27/2017 preliminarily no growth - Anaerobic culture from left foot 12/27/2017 pulmonary no growth. Pathology bone biopsy- results still pending. Current antibiotics Zosyn IV (day #4), Vancomycin D/c'd 12/31 CrCl: 37 Plan: Length of antibiotic coverage dependent on clinical picture - No amputation may require 6 weeks of IV antibiotic therapy. - Okay to place PICC line - Continue monitor WBC with CBC and renal function with BMP Qualifiers: Sepsis type: sepsis due to unspecified organism Qualified Code(s): A41.9 - Sepsis, unspecified organism (2) Osteomyelitis Current Visit: Yes Status: Acute Left foot osteomyelitis with gas-forming bacteria. - Bone biopsy performed 12/27/2017 with results still pending. - Wound culture from 12/27/2017 demonstrates group B strep - Wound culture intaoperative- NO growth. - Patient going back to OR for further exploration and possible intervention. - Clinically improving - Current antibiotics as discussed above. - Weekly trend ESR and CRP Qualifiers: Osteomyelitis type: other acute Osteomyelitis location: foot Laterality: left Qualified Code(s): M86.172 - Other acute osteomyelitis, left ankle and foot (3) Uncontrolled diabetes mellitus Current Visit: Yes Status: Acute Patient is uncontrolled type 2 diabetes, to which she admits to. - Clinical findings but correlates with long-term uncontrolled type 2 diabetes - It is vital that she maintains strict glucose regulation to improve chances of healing and prevent further infections and progressive disease. Qualifiers: Diabetes mellitus type: type 2 Diabetes mellitus computer terminal operator insulin use: with computer terminal operator use Diabetes mellitus complication status: with circulatory complication Diabetes mellitus complication detail: with peripheral angiopathy without gangrene Qualified Code(s): E11.51 - Type 2 diabetes mellitus with diabetic peripheral angiopathy without gangrene; E11.65 - Type 2 diabetes mellitus with hyperglycemia; E11.65 - Type 2 diabetes mellitus with hyperglycemia; E11.65 - Type 2 diabetes mellitus with hyperglycemia; E11.65 - Type 2 diabetes mellitus with hyperglycemia; Z79.4 - computer terminal operator (current) use of insulin; Z79.4 - group home (current) use of insulin; Z79.4 - computer terminal operator (current ) use of insulin; Z79.4 - group home (current) use of insulin (4) CKD (chronic kidney disease) stage 3, GFR 30-59 ml/min Current Visit: Yes Status: Acute Chronic likely secondary to diabetes. - Management per primary team. (5) Acute on chronic kidney failure Current Visit: Yes Status: Acute Creatinine elevated beyond baseline at the time of initial evaluation. Elevation in the setting of sepsis and osteomyelitis. - Improving, management per primary team - Renally dose antibiotics and avoid nephrotoxic medications. Qualifiers: Acute renal failure type: unspecified Chronic kidney disease stage: stage 3 (moderate) Qualified Code(s): N17.9 - Acute kidney failure, unspecified; N18.3 - Chronic kidney disease, stage 3 (moderate); N18.3 - Chronic kidney disease, stage 3 (moderate) - Subjective Interval history: Ms. Vallejo 62-year-old female seen and evaluated patient bedside this morning. She states last evening she had projectile vomiting, denies any fevers , chills, diaphoresis. She nothing by mouth prior to her procedure this morning. She does complain of some mild left foot pain which has been tolerable and some mild drainage from incision sites. She has no other concerns at this time awaiting her procedure this afternoon. Infect Dis PN-Objective Data - Labs CBC & Chem 7: 12/31/17 04:33 12/31/17 04:33 Labs: Laboratory Results - last 24 hr 12/29/17 12/29/17 12/30/17 15:54 16:46 07:13 WBC RBC Hgb Hct MCV MCH MCHC RDW Plt Count MPV Immature Gran % Seg Neutrophils % Lymphocytes % Monocytes % Eosinophils % Basophils % Neutrophils # Lymphocytes # Monocytes # Eosinophils # Basophils # Sodium Potassium Chloride Carbon Dioxide BUN Creatinine Est GFR ( Amer) Est GFR (Non-Af Amer) BUN/Creatinine Ratio Glucose POC Glucose 221 H 191 H 130 H Calculated Osmolality Calcium Random Vancomycin 12/30/17 12/30/17 12/30/17 11:13 16:06 19:37 WBC RBC Hgb Hct MCV MCH MCHC RDW Plt Count MPV Immature Gran % Seg Neutrophils % Lymphocytes % Monocytes % Eosinophils % Basophils % Neutrophils # Lymphocytes # Monocytes # Eosinophils # Basophils # Sodium Potassium Chloride Carbon Dioxide BUN Creatinine Est GFR ( Amer) Est GFR (Non-Af Amer) BUN/Creatinine Ratio Glucose POC Glucose 135 H 109 H 96 H Calculated Osmolality Calcium Random Vancomycin 12/31/17 12/31/17 12/31/17 04:33 04:33 04:33 WBC 10.1 RBC 3.68 L Hgb 10.0 L Hct 31.6 L MCV 85.9 MCH 27.2 L MCHC 31.6 RDW 12.9 Plt Count 291 MPV 9.5 Immature Gran % 0.9 Seg Neutrophils % 73.0 Lymphocytes % 15.4 Monocytes % 9.4 Eosinophils % 0.7 Basophils % 0.6 Neutrophils # 7.4 Lymphocytes # 1.6 Monocytes # 1.0 Eosinophils # 0.1 Basophils # 0.1 Sodium 134 L Potassium 4.1 Chloride 104 Carbon Dioxide 21 L BUN 29 H Creatinine 1.87 H Est GFR ( Amer) 33 L Est GFR (Non-Af Amer) 27 L BUN/Creatinine Ratio 16 Glucose 96 POC Glucose Calculated Osmolality 284 Calcium 8.8 Random Vancomycin 13 Cultures: Cultures 12/27/17 19:00 Anaerobic Culture - Preliminary Left Foot 12/27/17 19:00 Wound Culture - Final Left Foot No pathogens isolated. Exam - Constitutional Vitals: Temp Pulse Resp BP Pulse Ox 98.4 F 91 15 117/71 96 12/31/17 07:24 12/31/17 07:24 12/31/17 07:24 12/31/17 07:24 12/31/17 07:24 Exam: General: Patient alert, awake, oriented 3, interactive, in no acute distress HEENT: Normocephalic, atraumatic, oral mucosa moist, uvula midline, neck supple trachea midline no palpable lymphadenopathy, no thyromegaly. Chest: Symmetric bilateral correlating with respiratory effort, effort nonlabored. Cardiac: Regular rate and rhythm, positive S1 and S2. no bruits appreciated bilateral carotids, Radial pulses 2+ bilateral, posterior tibial and dorsal pedal pulses 2+ bilateral. Respiratory: Clear to auscultation all lung chpaman Abdomen: Soft, nontender, positive bowel sounds, no palpable masses appreciated on examination Extremities: Symmetric bilateral, right foot demonstrates elevated foot arch, hammer toes, smooth skin with diminished pulses bilaterally. Left foot is wrapped mild drainage through the bandages, warmth, trace pitting in erythema around the ankle. Neurologic: Face symmetric, muscle strength symmetric bilateral upper and lower extremities. - VTE Documentation of Mechanical Device: Intermittent pneumatic compression device Consult Discharge Plan - Plan Referrals: Elgin Hernandez CNP [Primary Care Provider] - (web request sent on 12/30/17) - Attending Attestation I examined this patient and my medical decision-making was reviewed with the Resident Physician. I agree with the documented findings, disposition and treatment plan as described except to the extent set forth below.
[2017-12-31] MEDS ORDERED: Aminoglycoside Consult 1 EACH MC ONE (12:55)
--- NOTE | 2017-12-31 16:48 | Anesthesia Evaluation PreOp ---
Date of Encounter: 12/31/17 Time of Encounter: 16:45 - Past History Planned Operation: I &D L-foot Cardiac History: HTN (maintained on Lisinopril) Pulmonary History: Former smoker (quit 2014) [employer] History: Other (Anxiety/Depression maintained on Elavil, Sertraline. Peripheral Neuropathy/Chronic Pain maintained on Neurontin) Other Medical History: Renal (Stage III CKD), Diabetes Type II (maintained on Insulin), GERD (maintained on Zantac) Anesthesia History: No Prior Anesthetic Complications, Past Anesthesia (L-foot) Alcohol Use: occasionally Drug use: none Medications and Allergies Amitriptyline [Elavil] 50 mg PO HS 12/27/17 [History] Aspirin 325 mg PO DAILY 12/27/17 [History] Calcitriol [Rocaltrol] 0.25 mcg PO DAILY 12/27/17 [History] Gabapentin [Neurontin] 300 mg PO TID 12/27/17 [History] Ginseng 250 mg PO DAILY 12/27/17 [History] Insulin NPH Hum/Reg Insulin Hm [Novolin 70-30 100 Unit/ml Vial] 35 unit SQ BID 12/27/17 [History] Lisinopril [Zestril] 5 mg PO DAILY 12/27/17 [History] Ranitidine HCl [Zantac] 150 mg PO DAILY 12/27/17 [History] Sertraline [Zoloft] 100 mg PO BID 12/27/17 [History] 3 Allergy/AdvReac Type Severity Reaction Status Date / Time ibuprofen [From Motrin] Allergy Rash Verified 12/27/17 13:25 - Meds/Allergy Pre-op Review Medications Reviewed: Yes Allergies Reviewed: Yes Beta Blockers on Current Med List: No Anesthesia Results - Labs 12/31/17 04:33 12/31/17 04:33 Laboratory Results WBC 10.1 K/mcL (4.3-11.1) 12/31/17 04:33 RBC 3.68 M/mcL (3.82-4.97) L 12/31/17 04:33 Hgb 10.0 g/dL (11.5-15.4) L 12/31/17 04:33 Hct 31.6 % (35.3-44.9) L 12/31/17 04:33 MCV 85.9 fL (83.0-100.0) 12/31/17 04:33 MCH 27.2 pg (28.0-33.3) L 12/31/17 04:33 MCHC 31.6 g/dL (31.6-35.5) 12/31/17 04:33 RDW 12.9 % (11.5-14.5) 12/31/17 04:33 Plt Count 291 K/mcL (140-400) 12/31/17 04:33 MPV 9.5 fL (9.4-12.4) 12/31/17 04:33 Immature Gran % 0.9 % (0-4) 12/31/17 04:33 Seg Neutrophils % 73.0 % 12/31/17 04:33 Lymphocytes % 15.4 % 12/31/17 04:33 Monocytes % 9.4 % 12/31/17 04:33 Eosinophils % 0.7 % 12/31/17 04:33 Basophils % 0.6 % 12/31/17 04:33 Neutrophils # 7.4 K/mcL (1.6-8.9) 12/31/17 04:33 Lymphocytes # 1.6 K/mcL (0.6-4.6) 12/31/17 04:33 Monocytes # 1.0 K/mcL (0.0-1.3) 12/31/17 04:33 Eosinophils # 0.1 K/mcL (0.0-0.6) 12/31/17 04:33 Basophils # 0.1 K/mcL (0.0-0.2) 12/31/17 04:33 ESR 96 mm/hr (0-15) H 12/29/17 22:37 Sodium 134 mEq/L (136-145) L 12/31/17 04:33 Potassium 4.1 mEq/L (3.5-5.1) 12/31/17 04:33 Chloride 104 mEq/L (98-107) 12/31/17 04:33 Carbon Dioxide 21 mEq/L (23-29) L 12/31/17 04:33 BUN 29 mg/dL (8-23) H 12/31/17 04:33 Creatinine 1.87 mg/dL (0.60-1.20) H 12/31/17 04:33 Est GFR ( Amer) 33 (> 60) L 12/31/17 04:33 Est GFR (Non-Af Amer) 27 (> 60) L 12/31/17 04:33 BUN/Creatinine Ratio 16 (6-26) 12/31/17 04:33 Glucose 96 mg/dL (70-105) 12/31/17 04:33 POC Glucose 96 mg/dL (58-89) H 12/30/17 19:37 Calculated Osmolality 284 (280-300) 12/31/17 04:33 Calcium 8.8 mg/dL (8.6-10.3) 12/31/17 04:33 Phosphorus 4.0 mg/dL (2.7-4.5) 12/27/17 18:21 Magnesium 1.6 mg/dL (1.6-2.6) 12/27/17 18:21 Total Bilirubin 0.4 mg/dL (0.3-1.0) 12/27/17 18:21 Direct Bilirubin 0.3 mg/dL (0.0-0.2) H 12/27/17 18:21 Indirect Bilirubin 0.1 mg/dL (0.0-1.2) 12/27/17 18:21 AST 7 Units/L (13-39) L 12/27/17 18:21 ALT 8 Units/L (7-52) 12/27/17 18:21 Alkaline Phosphatase 96 Units/L (34-104) 12/27/17 18:21 C-Reactive Protein 147 mg/L (Less than 10) H 12/29/17 22:37 Serum Total Protein 7.4 g/dL (6.4-8.9) 12/27/17 18:21 Albumin 3.1 g/dL (3.5-5.7) L 12/27/17 18:21 Globulin 4.3 g/dL (2.4-3.5) H 12/27/17 18:21 Albumin/Globulin Ratio 0.7 (1.1-2.2) L 12/27/17 18:21 Vancomycin Trough 30 mcg/mL (5-10) H 12/30/17 03:45 Random Vancomycin 13 mcg/mL 12/31/17 04:33 - Imaging EKG: image reviewed (111bpm SINUS TACHYCARDIA SEPTAL MYOCARDIAL INFARCTION, PROBABLY OLD Electronically Signed On 12-30-2017 12:20:15 EDT by Sterling Blancas) Anesthesia Exam Vital Signs Temp Pulse Resp BP Pulse Ox 04/03/18 14:53 98.2 F 96 16 146/79 96 12/31/17 11:32 98.1 F 89 15 136/89 96 12/31/17 07:24 98.4 F 91 15 117/71 96 12/31/17 04:48 98 F 88 16 152/81 98 12/30/17 23:13 98.8 F 92 16 123/74 94 12/30/17 19:33 98.9 F 87 16 135/79 97 Intake and Output 12/31/17 12/31/17 12/31/17 07:59 15:59 23:59 Intake Total 100 / 100 100 / 100 Output Total 800 / 800 Balance -700 / -700 100 / 100 Intake: IV Fluids 100 / 100 100 / 100 Zosyn 3.375 GM In 0.9 % Sodium 100 / 100 100 / 100 Chloride (Mini-Bag +) 100 ML @ 25 mls/hr IVPB Q8HR [facility] Rx#: [id number] Oral 0 / 0 0 / 0 Output: Urine 800 / 800 Other: # Voids 0 0 Weight 100 kg Blood Glucose* 87 91 112 Patient Weight 12/31/17 23:59 Weight 100 kg Height: 5'9" Weight: 220# BMI = 33 NPO (# of Hours): MNoc Pain Scale Used: Numeric (1 - 10) - HEENT Pupil (Motor): Pupils equal, EOMI Mallampati: II Teeth: Edentulous Oral Opening: Greater than 3 - [employer] LOC: Oriented [employer] Motor: Normal RUE, Normal LUE, Normal RLE, Normal Face, Deficit LLE [employer] Sensory: Normal: RUE, LUE, RLE, Face, Deficit: LLE - Cardiac Rhythm: Regular Murmur: None - Pulmonary Breath Sounds: bilateral Clear Respiratory Effort: Symmetrical Anesthesia Assess/Plan ASA Score: 3 (DM, CKD Stage III, Obesity, HTN, Chol, Chronic Pain/Peripheral Neuropathy) Modified [place] Scale for Level of Consciousness: Cooperative, oriented, and tranquil Anesthetic Plan: General Monitoring Plan: Standard Monitors Recovery Plan: PACU Anes Supervising Prov Stmt: Pt seen/evaluated, R&B discussed, questions answered and consent obtained. Apple Han MD
[2017-12-31] MEDS ORDERED: *HR* Midazolam HCl 2 MG/2 ML VIAL ONE (17:00)
[2017-12-31] MEDS ORDERED: *HR* FentaNYL (PF) 100 MCG/2 ML VIAL ONE (17:00)
[2017-12-31] MEDS ORDERED: *HR* Propofol 200 MG/20 ML VIAL IVP ONE (17:00)
[2017-12-31] MEDS ORDERED: Lidocaine -MPF 2% 2 ML VIAL ONE (17:02)
[2017-12-31] MEDS ORDERED: Bupivacaine/Clonidine Syringe 1 EACH SYRINGE ONE (17:50)
[2017-12-31] MEDS ORDERED: Propofol 500 MG/50 ML INFUS..BTL ONE ×2 (17:52→18:38)
[2017-12-31] MEDS ORDERED: Ondansetron 4 MG/2 ML VIAL ONE (18:23)
[2017-12-31] MEDS ORDERED: *HR* PHENYLEPHRINE 1,000 MCG/10 ML SYRINGE IVP ONE (18:30)
[2017-12-31] MEDS: rOPINIRole 1 MG TABLET PO SCH (20:51)
[2017-12-31] MEDS: *HR* HYDROcodone/Acet 5/325 mg TABLET PO PRN (20:53)
[2017-12-31] MEDS ORDERED: *HR* HYDROmorphone 2 MG/ML SYRINGE IVP PRN (23:32)
[2017-12-31] MEDS: OXYCODONE Oral CONC 10 MG/0.5 ML ORAL.SYG SL PRN (23:59)
[2018-01-01] MEDS: Piperacillin/Tazobactam 3.375 GM in 0.9 % Sodium Chloride Mini Bag 100 ML IVPB SCH ×3 (00:02→16:45)
[2018-01-01] MEDS: *HR* Heparin 5,000 UNIT/ML VIAL SQ SCH ×3 (05:28→19:57)
[2018-01-01 06:38] LABS: Basophils # 0.1 K/mcL (0.0-0.2); Basophils % 0.5 %; Eosinophils # 0.1 K/mcL (0.0-0.6); Eosinophils % 0.5 %; Hematocrit 33.4 % (35.3-44.9); Hemoglobin 10.7 g/dL (11.5-15.4); Immature Granulocytes % 1.5 % (0-4); Lymphocytes # 1.3 K/mcL (0.6-4.6); Lymphocytes % 8.9 %; Mean Corpuscular Hemoglobin 27.2 pg (28.0-33.3); Mean Corpuscular Volume 84.8 fL (83.0-100.0); Mean Platelet Volume 9.5 fL (9.4-12.4); Monocytes # 1.4 K/mcL (0.0-1.3); Monocytes % 9.9 %; Neutrophils # 11.4 K/mcL (1.6-8.9); Platelet Count 312 K/mcL (140-400); Red Blood Count 3.94 M/mcL (3.82-4.97); Red Cell Distribution Width 12.8 % (11.5-14.5); Segmented Neutrophils % 78.7 %
[2018-01-01 06:54] LABS: Calcium 8.5 mg/dL (8.6-10.3); Potassium 4.7 mEq/L (3.5-5.1)
[2018-01-01] MEDS: Insulin NPH/REG 70/30 100 UNIT/ML (x5UNIT) SQ SCH (08:05)
[2018-01-01] MEDS: Insulin LISPRO 300 UNITS/3 ML VIAL SQ SCH ×3 (08:05→16:43)
[2018-01-01] MEDS: Gabapentin 300 MG CAPSULE PO SCH ×3 (08:06→19:57)
[2018-01-01] MEDS: OXYCODONE Oral CONC 10 MG/0.5 ML ORAL.SYG SL PRN ×3 (08:06→19:57)
[2018-01-01] MEDS: Neosporin OINT 15 GM TUBE TP SCH (08:07)
--- NOTE | 2018-01-01 08:13 | Infectious Disease Progress No ---
Date of Encounter: 01/01/18 Time of Encounter: 08:13 - Assessment and Plan (1) Sepsis Current Visit: Yes Status: Resolved 62-year-old female with uncontrolled type 2 diabetes presented with tachycardia , elevated WBC around 17 and left foot osteomyelitis and wound infection associated with gas-forming bacteria. Organism from wound culture: Group B streptococci Initial lactic acid 1.5 Initial CRP 147, ESR 96 - Blood culture 12/27/2017 preliminarily no growth - Anaerobic culture from left foot 12/27/2017 preliminarily no growth. Pathology bone biopsy- osteomylitis Current antibiotics Zosyn IV (day #5), Vancomycin D/c'd 12/31 CrCl: 37 01/01: WBC 14.4 likely secondary to surgical intervention yesterday, tachycardia , patient appears clinically stable and improving. Plan: Length of antibiotic coverage dependent on clinical picture - may require 6 weeks of IV antibiotic therapy. - Okay to place PICC line - Continue monitor WBC with CBC and renal function with BMP Qualifiers: Sepsis type: sepsis due to unspecified organism Qualified Code(s): A41.9 - Sepsis, unspecified organism (2) Osteomyelitis Current Visit: Yes Status: Acute Left foot osteomyelitis with gas-forming bacteria. - Bone biopsy performed 12/27/2017 with osteomyelitis. - Wound culture from 12/27/2017 demonstrates group B strep - Wound culture intaoperative- NO growth. - Post op second wound washout 12/31- wound cultures and anaerobic cultures collected with results pending. - Clinically improving - Current antibiotics as discussed above. - Weekly trend ESR and CRP Qualifiers: Osteomyelitis type: other acute Osteomyelitis location: foot Laterality: left Qualified Code(s): M86.172 - Other acute osteomyelitis, left ankle and foot (3) Uncontrolled diabetes mellitus Current Visit: Yes Status: Acute Patient is uncontrolled type 2 diabetes, to which she admits to. - Clinical findings but correlates with long-term uncontrolled type 2 diabetes - It is vital that she maintains strict glucose regulation to improve chances of healing and prevent further infections and progressive disease. 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: with public health aides teacher use Diabetes mellitus complication status: with circulatory complication Diabetes mellitus complication detail: with peripheral angiopathy without gangrene Qualified Code(s): E11.51 - Type 2 diabetes mellitus with diabetic peripheral angiopathy without gangrene; E11.65 - Type 2 diabetes mellitus with hyperglycemia; E11.65 - Type 2 diabetes mellitus with hyperglycemia; E11.65 - Type 2 diabetes mellitus with hyperglycemia; E11.65 - Type 2 diabetes mellitus with hyperglycemia; 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 - Management per primary team. (5) Acute on chronic kidney failure Current Visit: Yes Status: Acute Creatinine elevated yet improving. Elevation in the setting of sepsis and osteomyelitis. - Improving, management per primary team - Renally dose antibiotics and avoid nephrotoxic medications. Qualifiers: Acute renal failure type: unspecified Chronic kidney disease stage: stage 3 (moderate) Qualified Code(s): N17.9 - Acute kidney failure, unspecified; N18.3 - Chronic kidney disease, stage 3 (moderate); N18.3 - Chronic kidney disease, stage 3 (moderate) - Subjective Interval history: Ms. Vallejo 62-year-old female seen and evaluated patient bedside this morning. She states that she tolerated her procedure yesterday without complications. She denies any fevers, chills, diaphoresis, nausea vomiting, abdominal pain, change in urination or extremity swelling. She does have some mild pain in her left foot but says it is controlled with current pain medications. She tolerated oral intake this morning. Appropriate drainage in her colostomy. Infect Dis PN-Objective Data - Labs CBC & Chem 7: 01/01/18 06:06 01/01/18 06:06 Labs: Laboratory Results - last 24 hr 12/30/17 12/30/17 12/30/17 11:13 16:06 19:37 WBC RBC Hgb Hct MCV MCH MCHC RDW Plt Count MPV Immature Gran % Seg Neutrophils % Lymphocytes % Monocytes % Eosinophils % Basophils % Neutrophils # Lymphocytes # Monocytes # Eosinophils # Basophils # Sodium Potassium Chloride Carbon Dioxide BUN Creatinine Est GFR ( Amer) Est GFR (Non-Af Amer) BUN/Creatinine Ratio Glucose POC Glucose 135 H 109 H 96 H Calculated Osmolality Calcium 12/31/17 12/31/17 12/31/17 07:27 11:34 16:32 WBC RBC Hgb Hct MCV MCH MCHC RDW Plt Count MPV Immature Gran % Seg Neutrophils % Lymphocytes % Monocytes % Eosinophils % Basophils % Neutrophils # Lymphocytes # Monocytes # Eosinophils # Basophils # Sodium Potassium Chloride Carbon Dioxide BUN Creatinine Est GFR ( Amer) Est GFR (Non-Af Amer) BUN/Creatinine Ratio Glucose POC Glucose 87 91 H 112 H Calculated Osmolality Calcium 01/01/18 01/01/18 06:06 06:06 WBC 14.4 H RBC 3.94 Hgb 10.7 L Hct 33.4 L MCV 84.8 MCH 27.2 L MCHC 32.0 RDW 12.8 Plt Count 312 MPV 9.5 Immature Gran % 1.5 Seg Neutrophils % 78.7 Lymphocytes % 8.9 Monocytes % 9.9 Eosinophils % 0.5 Basophils % 0.5 Neutrophils # 11.4 H Lymphocytes # 1.3 Monocytes # 1.4 H Eosinophils # 0.1 Basophils # 0.1 Sodium 132 L Potassium 4.7 Chloride 101 Carbon Dioxide 23 BUN 22 Creatinine 1.81 H Est GFR ( Amer) 34 L Est GFR (Non-Af Amer) 28 L BUN/Creatinine Ratio 12 Glucose 272 H POC Glucose Calculated Osmolality 287 Calcium 8.5 L Cultures: Cultures 12/27/17 19:00 Anaerobic Culture - Preliminary Left Foot 12/27/17 19:00 Wound Culture - Final Left Foot No pathogens isolated. Exam - Constitutional Vitals: Temp Pulse Resp BP Pulse Ox 98.0 F 111 18 146/84 95 01/01/18 07:02 01/01/18 07:02 01/01/18 07:02 01/01/18 07:02 01/01/18 07:02 Exam: General: Patient alert, awake, oriented 3, interactive, in no acute distress HEENT: Normocephalic, atraumatic, oral mucosa moist, uvula midline, neck supple trachea midline no palpable lymphadenopathy, no thyromegaly. Chest: Symmetric bilateral correlating with respiratory effort, effort nonlabored. Cardiac: Regular rate and rhythm, positive S1 and S2. no bruits appreciated bilateral carotids, Radial pulses 2+ bilateral, posterior tibial and dorsal pedal pulses 2+ bilateral. Respiratory: Clear to auscultation all lung chapman Abdomen: Soft, nontender, positive bowel sounds, Colostomy in place without surrounding erythema or discomfort with palpation. no palpable masses appreciated on examination Extremities: Symmetric bilateral, right foot demonstrates elevated foot arch, hammer toes, smooth skin with diminished pulses bilaterally. Left foot is wrapped mild drainage through the bandages, warmth around the ankle. Neurologic: Face symmetric, muscle strength symmetric bilateral upper and lower extremities. - VTE Documentation of Mechanical Device: Intermittent pneumatic compression device Consult Discharge Plan - Plan Referrals: Elgin Hernandez CNP [Primary Care Provider] - (web request sent on 12/30/17) - Attending Attestation I examined this patient and my medical decision-making was reviewed with the Resident Physician. I agree with the documented findings, disposition and treatment plan as described except to the extent set forth below.
--- NOTE | 2018-01-01 08:59 | Operative Note ---
Date of procedure: 12/31/17 Pre-op diagnosis: Infection/osteomyelitis first MPJ left foot Post-op diagnosis: same Procedure: Partial resection of first metatarsal, left foot. Partial resection of proximal phalanx, left foot. Irrigation and debridement from 2 separate sites on the left foot. Bone biopsy, left foot. Implants: none Complications: none Anesthesia: [facility] Surgeon: Roberto Johnson Was there an clinical lab assistant present: No Estimated blood loss (cc): 10 Specimen: Bone biopsy distal aspect of first metatarsal, left and proximal aspect fir Condition: stable Disposition: PACU Procedure in Detail: The patient was administered IV antibiotics. The patient was transported to the operative room and placed on operating table. Following anesthesia the extremity was scrubbed prepped and draped in the usual aseptic fashion. A timeout was performed. The plantar and dorsal ulceration sites were inspected. There is noted be continued purulence coming from the site. After further inspection it was noted that there was purulence around the bone near the site of the bone biopsy. The decision was made to resect the distal aspect of the first metatarsal and the proximal aspect of the first proximal phalanx. The bone was resected appropriately and irrigation and debridement was performed. The tissue debrided consisted of epidermis, dermis, subcutaneous, tendon, fascia, bone. The plantar site was opened more and the site was extended approximately 1 cm proximally. The dorsal site was also extended approximately 5 mm. The sites were debrided in a similar fashion using the Misonix debrider. After appropriate debridement the sites were pulse irrigated and partial delayed primary closure was performed at the distal aspect of the incision site, approximately 2 cm of the site were closed the dorsal incision site was closed as well approximately 1 cm of that site were closed. A wound VAC was inserted through proximal openings in the dorsal and plantar incisions. The site was then dressed with Kerlix. The patient tolerated the procedure and anesthesia well and was transported to the recovery room with vital signs stable and vascular status intact to both feet. The patient will be readmitted per anesthesia. The patient will keep the dressings clean, dry, intact until the follow-up appointment in 1-2 weeks. The patient will remain nonweightbearing The patient will likely require at least 2 weeks of IV antibiotics postsurgically pending labs and ID recommendations. The necrotic bone was excised however due to the severity of the initial infection, I feel as though close monitoring will be needed. The patient's poor glucose control will need to be addressed as well if she wants this salvage procedure to be a success. The patient was instructed that this is a salvage procedure and that there is possibility of further amputation and surgical intervention. Patient will need wound VAC changes every 3 days and will follow-up with me in clinic in approximately 1 week after discharge.
[2018-01-01] MEDS ORDERED: *HR* Promethazine 25 MG/ML VIAL IVP PRN (10:20)
[2018-01-01] MEDS ORDERED: *HR* OxyCODONE/APAP 7.5/325 TABLET PO PRN (10:21)
--- NOTE | 2018-01-01 10:41 | Internal Med Progress Note ---
<Elvin Yarbrough - Last Filed: 01/01/18 10:38> Date of Encounter: 01/01/18 Time of Encounter: 09:00 - Assessment and plan (1) Sepsis Current Visit: Yes Status: Resolved Assessment and plan: Now resolved 3 SIRS criteria present at admission: Febrile, leukocytosis, tachycardia Suspected source from diabetic ulcer/osteomyelitis Current organism unknown Lactic acid of presentation 1.5 01/01/18 Though patient still meets sepsis criteria, the increase in her WBC and tachycardia is likely a result of the surgery that she had yesterday. We will continue to monitor and change AB if necessary Qualifiers: Sepsis type: sepsis due to unspecified organism Qualified Code(s): A41.9 - Sepsis, unspecified organism (2) Osteomyelitis Current Visit: Yes Status: Acute Assessment and plan: Patient presented to [facility] with left foot pain and swelling Found to have imaging suspicious for osteomyelitis with gas in her left foot Currently on Vancomycin and Zosyn Taken for surgery on 12/27/17 for I&D with cultures Podiatry plans for another wash out and biopsy today Wound culture from 12/27 shows group B strep We will continue vancomycin and Zosyn Day 6 Will consider deescalation, but these infections are frequently polymicrobial , so will discuss with ID Podiatry consulted and appreciate continued assistance with management/care When no additional procedures planned, will establish PICC and prepare for snf antibiotics as outpatient We will wait for further wound cultures Will consult ID and appreciate recommendations for continued management/care and assistance with coordinating snf antibiotics Qualifiers: Osteomyelitis type: other acute Osteomyelitis location: foot Laterality: left Qualified Code(s): M86.172 - Other acute osteomyelitis, left ankle and foot (3) Acute on chronic kidney failure Current Visit: Yes Status: Acute Assessment and plan: Patient has history of chronic kidney disease stage III with baseline serum creatinine of 1.4 and baseline GFR of 40 Presented with decreased renal function with serum creatinine around 2.3 and GFR of 21 Improvement in patient's renal function seen today, approaching her baseline renal function Likely due to patient infection and possibly from vancomycin as well We will treat patient infection as above Encourage greater amount of oral intake Avoid potential nephrotoxic agents We will monitor chemistry daily Qualifiers: Acute renal failure type: unspecified Chronic kidney disease stage: stage 3 (moderate) Qualified Code(s): N17.9 - Acute kidney failure, unspecified; N18.3 - Chronic kidney disease, stage 3 (moderate); N18.3 - Chronic kidney disease, stage 3 (moderate) (4) Hyperkalemia Current Visit: Yes Status: Resolved Assessment and plan: Presented with potassium 5.8, but uncontrolled diabetes Was given 10 units IV insulin with improvement of potassium to 4.5 Patient hyperkalemia likely due to uncontrolled diabetes and hyperglycemia Resolution of patient hyperkalemia seen with control patient blood sugar We will continue to monitor potassium closely (5) 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 Current Visit: Yes Status: Chronic Assessment and plan: Patient takes 35 units twice a day she will and at home Patient hemoglobin A1c found to be 13.2 on 12/13/17 Has been significantly hyperglycemic with blood sugars ranging between the mid 400s to low 200s, improvement seen and patient now having blood sugars within normal range We will have high-dose insulin sliding scale We will readjust insulin administration tomorrow Qualifiers: Diabetes mellitus snf insulin use: with can intake worker use Diabetes mellitus complication detail: with neuropathic arthropathy Qualified Code(s): 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; E08.65 - Diabetes mellitus due to underlying condition with hyperglycemia; E08.65 - Diabetes mellitus due to underlying condition with hyperglycemia; E08.65 - Diabetes mellitus due to underlying condition with hyperglycemia; E08.65 - Diabetes mellitus due to underlying condition with hyperglycemia; Z79.4 - tree feller (current) use of insulin; Z79.4 - tree feller ( current) use of insulin; Z79.4 - tree feller (current) use of insulin; Z79.4 - tree feller (current) use of insulin (6) Mood disorder Current Visit: Yes Status: Acute Assessment and plan: Stable continue home medications (7) Hypertension Current Visit: Yes Status: Acute Assessment and plan: Controlled on home medications Qualifiers: Hypertension type: essential hypertension Qualified Code(s): I10 - Essential (primary) hypertension (8) DVT prophylaxis Current Visit: Yes Status: Acute Assessment and plan: SCDs Heparin subcutaneous 3 times a day - Subjective Interval history: Patient doing well this morning. She is appears slightly out of it, likely result pain medication. She denies having any additional nausea/vomiting. States she thinks she does have an appetite though is never a family practice. She denies fever/chills, denies lightheadedness, denies dizziness, denies shortness of breath. She states she has some tenderness in her left foot still. Patient resting comfortably in bed. SHe states that she has been continuing to have some nausea and vomiting. With this she also reports having some anorexia. She denies having any fevers/chills, dyspnea, CP. She does report having some continued pain in her foot, but otherwise is pain free. - Constitutional Vitals: Temp Pulse Resp BP Pulse Ox 98.0 F 111 18 146/84 95 01/01/18 07:02 01/01/18 07:02 01/01/18 07:02 01/01/18 07:02 01/01/18 07:02 General appearance: Present: A&O X 3 Exam: General: Cooperative, pleasant, no acute distress, alert and oriented 3, answers questions appropriately, obese HEENT: Normocephalic, atraumatic, Conjunctiva pink, sclera anicteric, oral mucosa moist Respiratory: No accessory muscle usage, clear to auscultation bilaterally, no wheezes/rhonchi/rales appreciated Cardiovascular: Regular rate and rhythm, S1 and S2 present, no murmurs/rubs/ gallops/clicks appreciated GI/abdominal: Nondistended, non-tender, soft, normal bowel sounds, no peritoneal signs, colostomy in place in right anterior abdomen, appears to be functioning well Extremities: No calf tenderness, mild pedal edema appreciated, warm, lower extremity pulses palpable and symmetrical, surgical dressing in place on left foot Neurological: Alert and oriented 3, no facial droop, no focal deficits Skin: Dry, intact, normal color Internal Medicine: Result - Labs CBC & Chem 7: 01/01/18 06:06 01/01/18 06:06 Labs: Short CBC 01/01/18 Range/Units 06:06 WBC 14.4 H (4.3-11.1) K/mcL Hgb 10.7 L (11.5-15.4) g/dL Hct 33.4 L (35.3-44.9) % Plt Count 312 (140-400) K/mcL Neutrophils # 11.4 H (1.6-8.9) K/mcL BMP 01/01/18 06:06 Sodium 132 L Potassium 4.7 Chloride 101 Carbon Dioxide 23 BUN 22 Creatinine 1.81 H Glucose 272 H Calcium 8.5 L - VTE Documentation of Mechanical Device: Intermittent pneumatic compression device Consult Discharge Plan - Plan Referrals: Elgin Hernandez, DEPARTMENT EDITOR [Primary Care Provider] - (web request sent on 12/30/17) <Kavon Ryan - Last Filed: 01/01/18 15:04> Date of Encounter: 01/01/18 - Constitutional Vitals: Temp Pulse Resp BP Pulse Ox 97.9 F 101 18 131/83 90 01/01/18 11:40 01/01/18 11:40 01/01/18 11:40 01/01/18 11:40 01/01/18 11:40 Internal Medicine: Result - Labs CBC & Chem 7: 01/01/18 06:06 01/01/18 06:06 Labs: Short CBC 01/01/18 Range/Units 06:06 WBC 14.4 H (4.3-11.1) K/mcL Hgb 10.7 L (11.5-15.4) g/dL Hct 33.4 L (35.3-44.9) % Plt Count 312 (140-400) K/mcL Neutrophils # 11.4 H (1.6-8.9) K/mcL BMP 01/01/18 06:06 Sodium 132 L Potassium 4.7 Chloride 101 Carbon Dioxide 23 BUN 22 Creatinine 1.81 H Glucose 272 H Calcium 8.5 L - Attending Attestation I performed an independent interview and examine this patient. I agree with the findings, assessment, and plan of Dr. Yarbrough, internal medicine resident. Patient is seeming to be stable. Sepsis has resolved. She continues on IV antibiotics as directed by infectious disease for group B strep infection. Will need PICC line for long-term IV antibiotics. Patient otherwise is doing well and discharge planning has begun. Podiatry is not planning any further surgeries at this time, but we will need to relook in the near future. I discussed the case with the podiatry nurse practitioner On exam: Vital stable No acute distress Lungs Clear Heart Regular rate and rhythm Abdomen benign Extremities left foot is dressed, clean and dry.
--- NOTE | 2018-01-01 16:38 | Podiatry Progress Note ---
Date of Encounter: 01/01/18 Time of Encounter: 12:45 - Assessment and Plan (1) Uncontrolled diabetes mellitus Current Visit: Yes Status: Acute Qualifiers: Diabetes mellitus type: type 2 Diabetes mellitus termite technician insulin use: with custodial use Diabetes mellitus complication status: with circulatory complication Diabetes mellitus complication detail: with peripheral angiopathy without gangrene Qualified Code(s): E11.51 - Type 2 diabetes mellitus with diabetic peripheral angiopathy without gangrene; E11.65 - Type 2 diabetes mellitus with hyperglycemia; E11.65 - Type 2 diabetes mellitus with hyperglycemia; E11.65 - Type 2 diabetes mellitus with hyperglycemia; E11.65 - Type 2 diabetes mellitus with hyperglycemia; Z79.4 - terminal clerk (current) use of insulin; Z79.4 - terminal clerk (current) use of insulin; Z79.4 - terminal clerk (current ) use of insulin; Z79.4 - terminal clerk (current) use of insulin (2) CKD (chronic kidney disease) stage 3, GFR 30-59 ml/min Current Visit: Yes Status: Acute (3) Osteomyelitis Current Visit: Yes Status: Acute S/p Incision and drainage of left foot first metatarsal phalangeal joint with incision to bone cortex with bone biopsy of first proximal phalanx and first metatarsal. Incision and drainage of the left foot fifth metatarsal phalangeal joint ulceration with debridement and irrigation by Dr. Johnson on 12/27/17. S/p Partial resection of first metatarsal, left foot. Partial resection of proximal phalanx, left foot. Irrigation and debridement from 2 separate sites on the left foot. Bone biopsy, left foot on 12/31/[address] Johnson. Outer dressing removed, foot is edematous with periwound erythema. WBC: 14.4 Temp: 98.2 Plan: Wound vac intact to the left foot with small black simplace wound vac sponge, 25 mls of bloody drainage observed to canister. Changed every 72 hours. The patient will likely need a PICC line and 6 weeks of IV antibiotics, per infectious disease. The patient will need to minimize weightbearing to the left foot sub-that the incision site/ulceration site can heal. Recommend a PT/OT consult. Qualifiers: Osteomyelitis type: other acute Osteomyelitis location: foot Laterality: left Qualified Code(s): M86.172 - Other acute osteomyelitis, left ankle and foot Subjective Principal diagnosis: Left osteomyelitis with infection and gas gangrene Interval history: Patient is s/p incision and drainage of left foot first metatarsal phalangeal joint with incision to bone cortex with bone biopsy of first proximal phalanx and first metatarsal. Incision and drainage of the left foot fifth metatarsal phalangeal joint ulceration with debridement and irrigation by Sessions on . Sessions took patient back to OR on 12/31/17 for a partial resection of first metatarsal, left foot. Partial resection of proximal phalanx , left foot. Irrigation and debridement from 2 separate sites on the left foot. Bone biopsy, left foot. Patient is lying in bed with dressing intact to the left foot and wound vac. Patient states her foot is very tender on the bottom, rates pain currently at a 4 out of 10. No c/o fever or chills. Objective - Vital Signs Vital Signs: Vital Signs Temp Pulse Resp BP Pulse Ox 01/01/18 15:40 98.2 F 98 18 107/73 93 01/01/18 11:40 97.9 F 101 18 131/83 90 01/01/18 07:02 98.0 F 111 18 146/84 95 01/01/18 03:24 97.9 F 115 20 145/77 94 12/31/17 23:27 97.7 F 117 18 150/70 93 12/31/17 22:15 97.8 F 98 16 175/88 12/31/17 21:45 97.8 F 102 18 148/83 100 12/31/17 21:15 98 F 87 16 160/67 100 12/31/17 20:15 97.8 F 92 18 166/95 100 12/31/17 20:00 98 F 93 18 143/90 12/31/17 19:49 97.6 F 87 16 138/83 99 12/31/17 19:45 97.6 F 84 16 127/74 98 12/31/17 19:30 97.8 F 87 16 138/83 98 Intake and Output 01/01/18 01/01/18 01/01/18 07:59 15:59 23:59 Intake Total 100 / 100 700 / 700 Output Total 300 / 300 Balance 100 / 100 400 / 400 Intake: IV Fluids 100 / 100 100 / 100 Zosyn 3.375 GM In 0.9 % Sodium 100 / 100 100 / 100 Chloride (Mini-Bag +) 100 ML @ 25 mls/hr IVPB Q8HR [facility] Rx#: [id number] Oral 600 / 600 Output: Stool 300 / 300 Other: Meal Breakfast Percent of Meal Consumed 100% # Voids 0 Weight 103.8 kg Blood Glucose* 253 119 Patient Weight 01/01/18 23:59 Weight 103.8 kg - Exam Exam: General appearance: alert awake oriented X 3. Calm and pleasant, no acute distress.. Vascular: Pedal pulses +1/4 DP/PT , No evidence of cyanosis, pallor or rubor, Edema graded at 1+/4, Skin Temperature warm, No calf pain with manual compression. capillary refill time is immediate to digits. Neurologic: Sensation intact with light touch to foot. . Postop Exam: S/P Surgical wound to the dorsum of the left foot at the base of the proximal phalanx of toe #2 with small black simplace wound vac sponge light periwound erythema, no odor. Surgical wound to the plantar aspect of the left foot at the 1st metatarsal head with small back simpalce wound vac spone no odor, light periwound erythema. Tenderness upon palpation the plantar aspect. Foot is edematous. 25 mls of bloody drainage observed to canister. - Lab Result Diagrams: 01/01/18 06:06 01/01/18 06:06 Labs: Abnormal lab results WBC 14.4 K/mcL (4.3-11.1) H 01/01/18 06:06 Hgb 10.7 g/dL (11.5-15.4) L 01/01/18 06:06 Hct 33.4 % (35.3-44.9) L 01/01/18 06:06 MCH 27.2 pg (28.0-33.3) L 01/01/18 06:06 Neutrophils # 11.4 K/mcL (1.6-8.9) H 01/01/18 06:06 Monocytes # 1.4 K/mcL (0.0-1.3) H 01/01/18 06:06 ESR 96 mm/hr (0-15) H 12/29/17 22:37 Sodium 132 mEq/L (136-145) L 01/01/18 06:06 Creatinine 1.81 mg/dL (0.60-1.20) H 01/01/18 06:06 Est GFR ( Amer) 34 (> 60) L 01/01/18 06:06 Est GFR (Non-Af Amer) 28 (> 60) L 01/01/18 06:06 Glucose 272 mg/dL (70-105) H 01/01/18 06:06 POC Glucose 119 mg/dL (70-99) H 01/01/18 15:44 Calcium 8.5 mg/dL (8.6-10.3) L 01/01/18 06:06 Direct Bilirubin 0.3 mg/dL (0.0-0.2) H 12/27/17 18:21 AST 7 Units/L (13-39) L 12/27/17 18:21 C-Reactive Protein 147 mg/L (Less than 10) H 12/29/17 22:37 Albumin 3.1 g/dL (3.5-5.7) L 12/27/17 18:21 Globulin 4.3 g/dL (2.4-3.5) H 12/27/17 18:21 Albumin/Globulin Ratio 0.7 (1.1-2.2) L 12/27/17 18:21 Vancomycin Trough 30 mcg/mL (5-10) H 12/30/17 03:45 Microbiology, Last 48 Hours 12/27/17 19:00 Anaerobic Culture - Final Left Foot Anaerobic conditions were compromised due to failure of the anaerobic pouch to seal correctly, therefore, sample cannot be assessed for anaerobic organisms. - VTE Documentation of Mechanical Device: Intermittent pneumatic compression device Consult Discharge Plan - Plan Referrals: Elgin Hernandez CNP [Primary Care Provider] - (web request sent on 12/30/17)
[2018-01-01] MEDS: rOPINIRole 1 MG TABLET PO SCH (19:57)
[2018-01-02] MEDS: Insulin LISPRO 300 UNITS/3 ML VIAL SQ SCH ×5 (00:30→22:51)
[2018-01-02] MEDS: Piperacillin/Tazobactam 3.375 GM in 0.9 % Sodium Chloride Mini Bag 100 ML IVPB SCH ×4 (00:30→23:10)
[2018-01-02] MEDS: Insulin NPH/REG 70/30 100 UNIT/ML (x5UNIT) SQ SCH ×3 (00:32→22:51)
[2018-01-02] MEDS: OXYCODONE Oral CONC 10 MG/0.5 ML ORAL.SYG SL PRN ×3 (04:19→23:09)
[2018-01-02] MEDS: *HR* Heparin 5,000 UNIT/ML VIAL SQ SCH ×3 (04:19→22:45)
[2018-01-02 07:34] LABS: Calcium 8.4 mg/dL (8.6-10.3); Potassium 4.3 mEq/L (3.5-5.1)
[2018-01-02 07:45] LABS: Basophils # 0.1 K/mcL (0.0-0.2); Basophils % 0.7 %; Eosinophils # 0.2 K/mcL (0.0-0.6); Eosinophils % 1.2 %; Hematocrit 32.7 % (35.3-44.9); Hemoglobin 10.3 g/dL (11.5-15.4); Immature Granulocytes % 2.6 % (0-4); Lymphocytes # 1.7 K/mcL (0.6-4.6); Lymphocytes % 12.4 %; Mean Corpuscular HGB Conc 31.5 g/dL (31.6-35.5); Mean Corpuscular Hemoglobin 27.5 pg (28.0-33.3); Mean Corpuscular Volume 87.4 fL (83.0-100.0); Mean Platelet Volume 9.6 fL (9.4-12.4); Monocytes # 1.3 K/mcL (0.0-1.3); Monocytes % 9.8 %; Platelet Count 299 K/mcL (140-400); Red Blood Count 3.74 M/mcL (3.82-4.97); Red Cell Distribution Width 13.2 % (11.5-14.5); Segmented Neutrophils % 73.3 %
--- NOTE | 2018-01-02 08:00 | Discharge Summary ---
- NOTES TO OUTPATIENT PROVIDER Notes to Outpatient Provider: She will require an extended course of antibiotics in order to treat her underlying osteomyelitis. When she leaves she will need to follow ESR/CRP and CBC once a week for the duration of treatment. Orders not resulted at time of discharge: Pending orders 12/31/17 18:45 Culture,Anaerobic [RM] Routine Culture,Wound [RM] Routine 12/31/17 19:13 Surgical Pathology [PTH] Routine Date of Encounter: 01/02/18 Time of Encounter: 07:40 - Discharge Diagnosis (1) Sepsis Priority: Primary Status: Resolved Qualifiers: Sepsis type: sepsis due to unspecified organism Qualified Code(s): A41.9 - Sepsis, unspecified organism (2) Osteomyelitis Priority: Primary Status: Acute Qualifiers: Osteomyelitis type: other acute Osteomyelitis location: foot Laterality: left Qualified Code(s): M86.172 - Other acute osteomyelitis, left ankle and foot (3) Acute on chronic kidney failure Priority: Primary Status: Chronic Qualifiers: Acute renal failure type: unspecified Chronic kidney disease stage: stage 3 (moderate) Qualified Code(s): N17.9 - Acute kidney failure, unspecified; N18.3 - Chronic kidney disease, stage 3 (moderate); N18.3 - Chronic kidney disease, stage 3 (moderate) (4) Hyperkalemia Priority: Primary Status: Resolved (5) 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 Priority: Primary Status: Chronic Qualifiers: Diabetes mellitus intermediate frame tender insulin use: with assisted use Diabetes mellitus complication detail: with neuropathic arthropathy Qualified Code(s): 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; E08.65 - Diabetes mellitus due to underlying condition with hyperglycemia; E08.65 - Diabetes mellitus due to underlying condition with hyperglycemia; E08.65 - Diabetes mellitus due to underlying condition with hyperglycemia; E08.65 - Diabetes mellitus due to underlying condition with hyperglycemia; Z79.4 - intermediate accountant (current) use of insulin; Z79.4 - intermediate accountant ( current) use of insulin; Z79.4 - half-way (current) use of insulin; Z79.4 - half-way (current) use of insulin (6) Mood disorder Priority: Primary Status: Chronic (7) Hypertension Priority: Primary Status: Chronic Qualifiers: Hypertension type: essential hypertension Qualified Code(s): I10 - Essential (primary) hypertension (8) DVT prophylaxis Priority: Secondary Status: Resolved Hospital course: Ms. Vallejo is a 62 year old female with prior medical history of COPD, diabetes (uncontrolled), CKD stage III, hypothyroid, and hypertension who presented to [facility] on 12/27/17 due to increased left foot pain and swelling. She states that she had picked a callus on her foot, but noticed gradually worsening swelling, erythema, and pain. Upon presentation she was found to have subcutaneous gas and findings concerning for osteomyelitis on x-ray. She was seen by podiatry and incision and drainage was performed. Findings series surgery were suspicious for osteomyelitis. She was started on IV vancomycin and Zosyn until culture revealed group B streptococcus , will repeat cultures were negative for any pathogens. Due to suspicion of polymicrobial infection she was continued on vancomycin and Zosyn. She underwent an additional incision and drainage with partial resection of her first metatarsal and proximal phalanx on 12/31/17. After waiting for several days for the final results of the culture from that procedure, patient is safe/ stable for discharge with continued IV antibiotics first and duration for treatment of her osteomyelitis. Discharge discussed with: patient, nurse, social work, case management - Time Spent with Patient Total time spent providing and/or coordinating discharge services: - Discharge Medications Home Medications: Amitriptyline [Elavil] 50 mg PO HS 12/27/17 [History] Aspirin 325 mg PO DAILY 12/27/17 [History] Calcitriol [Rocaltrol] 0.25 mcg PO DAILY 12/27/17 [History] Gabapentin [Neurontin] 300 mg PO TID 12/27/17 [History] Ginseng 250 mg PO DAILY 12/27/17 [History] Insulin NPH Hum/Reg Insulin Hm [Novolin 70-30 100 Unit/ml Vial] 35 unit SQ BID 12/27/17 [History] Lisinopril [Zestril] 5 mg PO DAILY 12/27/17 [History] Ranitidine HCl [Zantac] 150 mg PO DAILY 12/27/17 [History] Sertraline [Zoloft] 100 mg PO BID 12/27/17 [History] Allergies/Adverse Reactions: 3 Allergy/AdvReac Type Severity Reaction Status Date / Time ibuprofen [From Motrin] Allergy Rash Verified 12/27/17 13:25 Date of admission: 12/27/17 19:36 Primary care physician: Elgin Hernandez CNP Consults: 12/27/17 17:40 Consult to Nutrition [CONS] Routine Comment: Consulting Provider: NUTRITION Reason for Dietary Consult: MST Score Consult to Grey Goods Examiner [CONS] Routine Reason for SW Consult: d/c planning and advance directives 12/30/17 10:36 Consult to Infectious Diseases [CONS] Routine Consulting Provider: Infectious Disease [place] Reason for Consult: Osteomyelitis of foot. Will likely need long-term antibiotics Call Completed: Yes 01/01/18 16:54 Consult to Occupational Therapy [CONS] Routine Comment: Evaluate, develop and implement POC Reason for Consult: Post op, wound vac to the left foot, minimize as much weight as possible to the left foot, okay to touch down with heel with transferring. Must have post op shoe on. Does patient have active BEDREST order?: No Is patient medically & hemodynamically stable?: Yes Consult to Physical Therapy [CONS] Routine Comment: Evaluate, develop and implement POC Reason for Consult: Post op, wound vac to the left foot, minimize as much weight as possible to the left foot, okay to touch down with heel with transferring. Must have post op shoe on. Does patient have active BEDREST order?: No Is patient medically & hemodynamically stable?: Yes Discharging clinician: Elvin Yarbrough - Constitutional Vitals: Temp Pulse Resp BP Pulse Ox 98.2 F 92 18 113/74 93 01/02/18 07:00 01/02/18 07:00 01/02/18 07:00 01/02/18 07:00 01/02/18 07:00 General appearance: Present: A&O X 3 - Patient Status Disposition: Transfer SNF Condition: Fair Functional capacity at discharge: uses cane/walker Overall status at discharge: patient is progressing back to baseline - Discharge Instructions Follow Up With: Elgin Hernandez CNP [Primary Care Provider] - (web request sent on 12/30/17) Additional Instructions: Please return to the ER if worsening of your current symptoms or development of increased swelling or new pain in your foot. If you develop fevers, chills, chest pain, or shortness of breath please return to the ER. Please take medication as prescribed: Please follow up with your PCP in 1-2 weeks Please follow up with Infectious Disease in 2-3 weeks - Diet and Activity Activity: as per physical therapy, increase activity as tolerated Diet: diabetic diet - VTE Documentation of Mechanical Device: Intermittent pneumatic compression device
[2018-01-02] MEDS: Gabapentin 300 MG CAPSULE PO SCH ×3 (08:22→22:45)
--- NOTE | 2018-01-02 08:32 | Internal Med Progress Note ---
<Elvin Yarbrough - Last Filed: 01/02/18 08:29> Date of Encounter: 01/02/18 Time of Encounter: 07:40 - Assessment and plan (1) Sepsis Current Visit: Yes Status: Resolved Assessment and plan: Now resolved 3 SIRS criteria present at admission: Febrile, leukocytosis, tachycardia Suspected source from diabetic ulcer/osteomyelitis Current organism unknown Lactic acid of presentation 1.5 01/01/18 Though patient still meets sepsis criteria, the increase in her WBC and tachycardia is likely a result of the surgery that she had yesterday. We will continue to monitor and change AB if necessary Qualifiers: Sepsis type: sepsis due to unspecified organism Qualified Code(s): A41.9 - Sepsis, unspecified organism (2) Osteomyelitis Current Visit: Yes Status: Acute Assessment and plan: Patient presented to [place] with left foot pain and swelling Found to have imaging suspicious for osteomyelitis with gas in her left foot Currently on Vancomycin and Zosyn Taken for surgery on 12/27/17 for I&D with cultures Podiatry plans for another wash out and biopsy today Wound culture from 12/27 shows group B strep Patient discussed with ID this morning, patient will likely go home on penicillin. Though they would feel more comfortable waiting 1 more day for cultures from procedure performed on 12/31/17 We will continue vancomycin and Zosyn Day 7 Podiatry consulted and appreciate continued assistance with management/care We will wait for further wound cultures Will consult ID and appreciate recommendations for continued management/care and assistance with coordinating snf antibiotics Qualifiers: Osteomyelitis type: other acute Osteomyelitis location: foot Laterality: left Qualified Code(s): M86.172 - Other acute osteomyelitis, left ankle and foot (3) Acute on chronic kidney failure Current Visit: Yes Status: Acute Assessment and plan: Patient has history of chronic kidney disease stage III with baseline serum creatinine of 1.4 and baseline GFR of 40 Presented with decreased renal function with serum creatinine around 2.3 and GFR of 21 Improvement in patient's renal function seen today, approaching her baseline renal function Likely due to patient infection and possibly from vancomycin as well We will treat patient infection as above Encourage greater amount of oral intake Avoid potential nephrotoxic agents We will monitor chemistry daily Qualifiers: Acute renal failure type: unspecified Chronic kidney disease stage: stage 3 (moderate) Qualified Code(s): N17.9 - Acute kidney failure, unspecified; N18.3 - Chronic kidney disease, stage 3 (moderate); N18.3 - Chronic kidney disease, stage 3 (moderate) (4) Hyperkalemia Current Visit: Yes Status: Resolved Assessment and plan: Presented with potassium 5.8, but uncontrolled diabetes Was given 10 units IV insulin with improvement of potassium to 4.5 Patient hyperkalemia likely due to uncontrolled diabetes and hyperglycemia Resolution of patient hyperkalemia seen with control patient blood sugar We will continue to monitor potassium closely (5) 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 Current Visit: Yes Status: Chronic Assessment and plan: Patient takes 35 units twice a day she will and at home Patient hemoglobin A1c found to be 13.2 on 12/13/17 Has been significantly hyperglycemic with blood sugars ranging between the mid 400s to low 200s, improvement seen and patient now having blood sugars within normal range We will have high-dose insulin sliding scale We will readjust insulin administration tomorrow Qualifiers: Diabetes mellitus snf insulin use: with snf use Diabetes mellitus complication detail: with neuropathic arthropathy Qualified Code(s): 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; E08.65 - Diabetes mellitus due to underlying condition with hyperglycemia; E08.65 - Diabetes mellitus due to underlying condition with hyperglycemia; E08.65 - Diabetes mellitus due to underlying condition with hyperglycemia; E08.65 - Diabetes mellitus due to underlying condition with hyperglycemia; Z79.4 - terminal block assembler (current) use of insulin; Z79.4 - terminal block assembler ( current) use of insulin; Z79.4 - terminal block assembler (current) use of insulin; Z79.4 - assisted (current) use of insulin (6) Mood disorder Current Visit: Yes Status: Acute Assessment and plan: Stable. Continue home medications (7) Hypertension Current Visit: Yes Status: Acute Assessment and plan: Controlled on home medications Qualifiers: Hypertension type: essential hypertension Qualified Code(s): I10 - Essential (primary) hypertension (8) DVT prophylaxis Current Visit: Yes Status: Acute Assessment and plan: SCDs Heparin subcutaneous 3 times a day - Subjective Interval history: Patient is alert and comfortable this morning. She states she is doing well and that her current pain regimen is working to control her pain. She states she has had resolution of her nausea/vomiting and that she has had a return of her appetite. She denies having a fever/chills, denies lightheadedness, denies chest pain, denies dyspnea. Head conversation with infectious disease this morning, patient will likely go home on penicillin but infectious disease would like to wait for cultures from her procedure 2 days ago. - Constitutional Vitals: Temp Pulse Resp BP Pulse Ox 98.2 F 92 18 113/74 93 01/02/18 07:00 01/02/18 07:00 01/02/18 07:00 01/02/18 07:00 01/02/18 07:00 General appearance: Present: A&O X 3 Exam: General: Cooperative, pleasant, no acute distress, alert and oriented 3, answers questions appropriately, obese HEENT: Normocephalic, atraumatic, Conjunctiva pink, sclera anicteric, oral mucosa moist Respiratory: No accessory muscle usage, clear to auscultation bilaterally, no wheezes/rhonchi/rales appreciated Cardiovascular: Regular rate and rhythm, S1 and S2 present, no murmurs/rubs/ gallops/clicks appreciated GI/abdominal: Nondistended, non-tender, soft, normal bowel sounds, no peritoneal signs, colostomy in place in right anterior abdomen, appears to be functioning well Extremities: No calf tenderness, mild pedal edema appreciated, warm, lower extremity pulses palpable and symmetrical, surgical dressing in place on left foot Neurological: Alert and oriented 3, no facial droop, no focal deficits Skin: Dry, intact, normal color Internal Medicine: Result - Labs CBC & Chem 7: 01/02/18 06:49 01/02/18 06:49 Labs: Short CBC 01/02/18 Range/Units 06:49 WBC 13.6 H (4.3-11.1) K/mcL Hgb 10.3 L (11.5-15.4) g/dL Hct 32.7 L (35.3-44.9) % Plt Count 299 (140-400) K/mcL Neutrophils # 10.0 H (1.6-8.9) K/mcL BMP 01/02/18 06:49 Sodium 135 L Potassium 4.3 Chloride 101 Carbon Dioxide 24 BUN 25 H Creatinine 2.07 H Glucose 147 H Calcium 8.4 L - VTE Documentation of Mechanical Device: Intermittent pneumatic compression device Consult Discharge Plan - Plan Referrals: Leeth,Elgin E, CORRESPONDENCE SECTION SUPERVISOR [Primary Care Provider] - (web request sent on 12/30/17) <Kavon Ryan - Last Filed: 01/02/18 14:57> Date of Encounter: 01/02/18 - Constitutional Vitals: Temp Pulse Resp BP Pulse Ox 97.6 F 99 18 111/74 94 01/02/18 11:38 01/02/18 11:38 01/02/18 11:38 01/02/18 11:38 01/02/18 11:38 Internal Medicine: Result - Labs CBC & Chem 7: 01/02/18 06:49 01/02/18 06:49 Labs: Short CBC 01/02/18 Range/Units 06:49 WBC 13.6 H (4.3-11.1) K/mcL Hgb 10.3 L (11.5-15.4) g/dL Hct 32.7 L (35.3-44.9) % Plt Count 299 (140-400) K/mcL Neutrophils # 10.0 H (1.6-8.9) K/mcL BMP 01/02/18 06:49 Sodium 135 L Potassium 4.3 Chloride 101 Carbon Dioxide 24 BUN 25 H Creatinine 2.07 H Glucose 147 H Calcium 8.4 L - Attending Attestation I performed an independent interview and examine this patient. I agree with the findings, assessment and plan of Dr. Yarbrough, internal medicine resident. I input is reflected in this note. We also appreciate infectious disease input. Anticipate changing to IV penicillin tomorrow via PICC line for antibiotics of likely 6 weeks duration. Patient is still having pain issues and we will adjust her medications. She otherwise is doing well and her PICC line has been placed. All else as per the above note.
--- NOTE | 2018-01-02 08:33 | Infectious Disease Progress No ---
Date of Encounter: 01/02/18 Time of Encounter: 08:33 - Assessment and Plan (1) Sepsis Current Visit: Yes Status: Resolved 62-year-old female with uncontrolled type 2 diabetes presented with tachycardia , elevated WBC around 17 and left foot osteomyelitis and wound infection associated with gas-forming bacteria. Organism from wound culture: Group B streptococci Initial lactic acid 1.5 Initial CRP 147, ESR 96 - Blood culture 12/27/2017 preliminarily no growth - Anaerobic culture from left foot 12/27/2017 compromised unable to grow anaerobic organisms.. Pathology bone biopsy- osteomylitis Current antibiotics Zosyn IV (day #5), Vancomycin D/c'd 12/31 CrCl: 37 01/01: WBC 14.4 likely secondary to surgical intervention yesterday, tachycardia , patient appears clinically stable and improving. 01/02: WBC trending down, patient clinically stable and improving. Plan: Length of antibiotic coverage dependent on clinical picture - may require 6 weeks of IV antibiotic therapy. - Plan to switch to penicillin 01/03 if patient continues to demonstrate improvement, no growth from other cultures. - Okay to place PICC line - Continue monitor WBC with CBC and renal function with BMP Qualifiers: Sepsis type: sepsis due to unspecified organism Qualified Code(s): A41.9 - Sepsis, unspecified organism (2) Osteomyelitis Current Visit: Yes Status: Acute Left foot osteomyelitis with gas-forming bacteria. - Bone biopsy performed 12/27/2017 with osteomyelitis. - Wound culture from 12/27/2017 demonstrates group B strep - Wound culture intaoperative- NO growth. - Anaerobic culture compromised and unable to assess for anaerobic organisms. - Post op second wound washout 12/31- wound cultures and anaerobic cultures collected with results pending. - Clinically improving - Current antibiotics as discussed above. - Weekly trend ESR and CRP Qualifiers: Osteomyelitis type: other acute Osteomyelitis location: foot Laterality: left Qualified Code(s): M86.172 - Other acute osteomyelitis, left ankle and foot (3) Uncontrolled diabetes mellitus Current Visit: Yes Status: Acute Patient is uncontrolled type 2 diabetes, to which she admits to. - Clinical findings but correlates with long-term uncontrolled type 2 diabetes - It is vital that she maintains strict glucose regulation to improve chances of healing and prevent further infections and progressive disease. Qualifiers: Diabetes mellitus type: type 2 Diabetes mellitus group home insulin use: with termination clerk use Diabetes mellitus complication status: with circulatory complication Diabetes mellitus complication detail: with peripheral angiopathy without gangrene Qualified Code(s): E11.51 - Type 2 diabetes mellitus with diabetic peripheral angiopathy without gangrene; E11.65 - Type 2 diabetes mellitus with hyperglycemia; E11.65 - Type 2 diabetes mellitus with hyperglycemia; E11.65 - Type 2 diabetes mellitus with hyperglycemia; E11.65 - Type 2 diabetes mellitus with hyperglycemia; Z79.4 - care home (current) use of insulin; Z79.4 - oysterman (current) use of insulin; Z79.4 - care home (current ) use of insulin; Z79.4 - oysterman (current) use of insulin (4) CKD (chronic kidney disease) stage 3, GFR 30-59 ml/min Current Visit: Yes Status: Acute Chronic likely secondary to diabetes. - Management per primary team. (5) Acute on chronic kidney failure Current Visit: Yes Status: Acute Creatinine elevated yet improving. Elevation in the setting of sepsis and osteomyelitis. - Improving, management per primary team - Renally dose antibiotics and avoid nephrotoxic medications. Qualifiers: Acute renal failure type: unspecified Chronic kidney disease stage: stage 3 (moderate) Qualified Code(s): N17.9 - Acute kidney failure, unspecified; N18.3 - Chronic kidney disease, stage 3 (moderate); N18.3 - Chronic kidney disease, stage 3 (moderate) - Subjective Interval history: Ms. Vallejo 62-year-old female seen and evaluated patient bedside this morning. She is alert awake interactive no acute distress. She tolerated breakfast this morning complaints. Denies any fevers, chills, diaphoresis, shortness of breath, chest pain or cough or sputum production. She denies any abdominal pain is having appropriate output in her colostomy bag. She continues to have pain with her left foot but says it is healing well and she is tolerating wound VAC at this time. She has no further questions for infectious disease, understands anabiotic treatments. Infect Dis PN-Objective Data - Labs CBC & Chem 7: 01/02/18 06:49 01/02/18 06:49 Labs: Laboratory Results - last 24 hr 12/31/17 01/01/18 01/01/18 19:49 07:06 11:44 WBC RBC Hgb Hct MCV MCH MCHC RDW Plt Count MPV Immature Gran % Seg Neutrophils % Lymphocytes % Monocytes % Eosinophils % Basophils % Neutrophils # Lymphocytes # Monocytes # Eosinophils # Basophils # Sodium Potassium Chloride Carbon Dioxide BUN Creatinine Est GFR ( Amer) Est GFR (Non-Af Amer) BUN/Creatinine Ratio Glucose POC Glucose 111 H 253 H 152 H Calculated Osmolality Calcium 01/01/18 01/01/18 01/02/18 15:44 18:46 06:49 WBC 13.6 H RBC 3.74 L Hgb 10.3 L Hct 32.7 L MCV 87.4 MCH 27.5 L MCHC 31.5 L RDW 13.2 Plt Count 299 MPV 9.6 Immature Gran % 2.6 Seg Neutrophils % 73.3 Lymphocytes % 12.4 Monocytes % 9.8 Eosinophils % 1.2 Basophils % 0.7 Neutrophils # 10.0 H Lymphocytes # 1.7 Monocytes # 1.3 Eosinophils # 0.2 Basophils # 0.1 Sodium Potassium Chloride Carbon Dioxide BUN Creatinine Est GFR ( Amer) Est GFR (Non-Af Amer) BUN/Creatinine Ratio Glucose POC Glucose 119 H 171 H Calculated Osmolality Calcium 01/02/18 06:49 WBC RBC Hgb Hct MCV MCH MCHC RDW Plt Count MPV Immature Gran % Seg Neutrophils % Lymphocytes % Monocytes % Eosinophils % Basophils % Neutrophils # Lymphocytes # Monocytes # Eosinophils # Basophils # Sodium 135 L Potassium 4.3 Chloride 101 Carbon Dioxide 24 BUN 25 H Creatinine 2.07 H Est GFR ( Amer) 30 L Est GFR (Non-Af Amer) 24 L BUN/Creatinine Ratio 12 Glucose 147 H POC Glucose Calculated Osmolality 287 Calcium 8.4 L Cultures: Cultures 12/31/17 18:45 Wound Culture - Preliminary Left Foot No pathogens isolated. 12/27/17 19:00 Anaerobic Culture - Final Left Foot Anaerobic conditions were compromised due to failure of the anaerobic pouch to seal correctly, therefore, sample cannot be assessed for anaerobic organisms. 12/27/17 19:00 Wound Culture - Final Left Foot No pathogens isolated. Exam - Constitutional Vitals: Temp Pulse Resp BP Pulse Ox 98.2 F 92 18 113/74 93 01/02/18 07:00 01/02/18 07:00 01/02/18 07:00 01/02/18 07:00 01/02/18 07:00 Exam: General: Patient alert, awake, oriented 3, interactive, in no acute distress HEENT: Normocephalic, atraumatic, oral mucosa moist, uvula midline, neck supple trachea midline no palpable lymphadenopathy, no thyromegaly. Chest: Symmetric bilateral correlating with respiratory effort, effort nonlabored. Cardiac: Regular rate and rhythm, positive S1 and S2. no bruits appreciated bilateral carotids, Radial pulses 2+ bilateral, posterior tibial and dorsal pedal pulses 2+ bilateral. Respiratory: Clear to auscultation all lung chapman Abdomen: Soft, nontender, positive bowel sounds, Colostomy in place without surrounding erythema or discomfort with palpation. no palpable masses appreciated on examination Extremities: Symmetric bilateral, right foot demonstrates elevated foot arch, hammer toes, smooth skin with diminished pulses bilaterally. Left foot is wrapped mild drainage through the bandages, warmth around the ankle. Neurologic: Face symmetric, muscle strength symmetric bilateral upper and lower extremities. - VTE Documentation of Mechanical Device: Intermittent pneumatic compression device Consult Discharge Plan - Plan Referrals: Elgin Hernandez CNP [Primary Care Provider] - (web request sent on 12/30/17) - Attending Attestation I examined this patient and my medical decision-making was reviewed with the Resident Physician. I agree with the documented findings, disposition and treatment plan as described except to the extent set forth below.
[2018-01-02] MEDS: Neosporin OINT 15 GM TUBE TP SCH (11:55)
--- NOTE | 2018-01-02 15:12 | Podiatry Progress Note ---
Date of Encounter: 01/02/18 Time of Encounter: 12:30 - Assessment and Plan (1) Uncontrolled diabetes mellitus Current Visit: Yes Status: Acute Qualifiers: Diabetes mellitus type: type 2 Diabetes mellitus local intermodal truck driver insulin use: with residential use Diabetes mellitus complication status: with circulatory complication Diabetes mellitus complication detail: with peripheral angiopathy without gangrene Qualified Code(s): E11.51 - Type 2 diabetes mellitus with diabetic peripheral angiopathy without gangrene; E11.65 - Type 2 diabetes mellitus with hyperglycemia; E11.65 - Type 2 diabetes mellitus with hyperglycemia; E11.65 - Type 2 diabetes mellitus with hyperglycemia; E11.65 - Type 2 diabetes mellitus with hyperglycemia; Z79.4 - USP (current) use of insulin; Z79.4 - medical terminologist (current) use of insulin; Z79.4 - medical terminologist (current ) use of insulin; Z79.4 - medical terminologist (current) use of insulin (2) CKD (chronic kidney disease) stage 3, GFR 30-59 ml/min Current Visit: Yes Status: Acute (3) Osteomyelitis Current Visit: Yes Status: Acute S/p Incision and drainage of left foot first metatarsal phalangeal joint with incision to bone cortex with bone biopsy of first proximal phalanx and first metatarsal. Incision and drainage of the left foot fifth metatarsal phalangeal joint ulceration with debridement and irrigation by Dr. Johnson on 12/27/17. S/p Partial resection of first metatarsal, left foot. Partial resection of proximal phalanx, left foot. Irrigation and debridement from 2 separate sites on the left foot. Bone biopsy, left foot on 12/31/[address] Johnson. Wound vac removed and surgical wounds assessed, no pus, no odor, foot is edematous with light periwound erythema. Area of dusky discoloration to the distal aspect of the incision lines to the dorsal and plantar aspect. WBC: 13.6 Microbiology 12/27/17 19:00 Left Foot Anaerobic Culture - Final Anaerobic conditions were compromised due to failure of the anaerobic pouch to seal correctly, therefore, sample cannot be assessed for anaerobic organisms. 12/27/17 19:00 Left Foot Wound Culture - Final No pathogens isolated. Plan: Small black simplace wound vac sponge applied and connected to 125mmhg low continuous suction. Wound Vac to be changed every 72 hours. Wound vac paperwork has been completed. Antibiotic therapy per Infectious Disease. The patient will need to minimize weightbearing to the left foot to allow the incision site/ulceration site to heal. Post op shoe ordered. PT/OT evaluated patient and recommended an ECF/SNF. Will continue to follow patient closely. Patient will need a 1 week f/u in Podiatry with Dr. Johnson. Qualifiers: Osteomyelitis type: other acute Osteomyelitis location: foot Laterality: left Qualified Code(s): M86.172 - Other acute osteomyelitis, left ankle and foot Subjective Principal diagnosis: Left osteomyelitis with infection and gas gangrene Interval history: Patient is s/p incision and drainage of left foot first metatarsal phalangeal joint with incision to bone cortex with bone biopsy of first proximal phalanx and first metatarsal. Incision and drainage of the left foot fifth metatarsal phalangeal joint ulceration with debridement and irrigation by Dr. Johnson on . Sessions took patient back to OR on 12/31/17 for a partial resection of first metatarsal, left foot. Partial resection of proximal phalanx , left foot. Irrigation and debridement from 2 separate sites on the left foot. Bone biopsy, left foot. Patient is lying in bed with dressing intact to the left foot and wound vac. Patient states her foot is very tender on the bottom. No c/o fever or chills. Objective - Vital Signs Vital Signs: Vital Signs Temp Pulse Resp BP Pulse Ox 01/02/18 11:38 97.6 F 99 18 111/74 94 01/02/18 07:00 98.2 F 92 18 113/74 93 01/02/18 03:49 99.0 F 99 18 119/68 96 01/01/18 23:33 98.9 F 96 18 118/68 98 01/01/18 18:48 97.4 F L 100 18 123/71 96 01/01/18 15:40 98.2 F 98 18 107/73 93 Intake and Output 01/01/18 01/02/18 01/02/18 23:59 07:59 15:59 Intake Total 100 / 100 100 / 100 340 / 340 Output Total 1000 / 1000 450 / 450 Balance 100 / 100 -900 / -900 -110 / -110 Intake: IV Fluids 100 / 100 100 / 100 100 / 100 Zosyn 3.375 GM In 0.9 % Sodium 100 / 100 100 / 100 100 / 100 Chloride (Mini-Bag +) 100 ML @ 25 mls/hr IVPB Q8HR [facility] Rx#: [id number] Oral 240 / 240 Output: Urine 500 / 500 400 / 400 Stool 500 / 500 Wound Drainage 50 / 50 L FOOT 50 / 50 Other: Meal Breakfast Percent of Meal Consumed 90% Stool Consistency loose Stool Color Brown Weight 104.8 kg Blood Glucose* 171 141 112 Patient Weight 01/02/18 23:59 Weight 104.8 kg - Exam Exam: General appearance: alert awake oriented X 3. Calm and pleasant, no acute distress.. Vascular: Pedal pulses +1/4 DP/PT , No evidence of cyanosis, pallor or rubor, Edema graded at 1+/4, Skin Temperature warm, No calf pain with manual compression. capillary refill time is immediate to digits. Neurologic: Sensation intact with light touch to foot. . Postop Exam: S/P Open surgical wound to the dorsum of the left foot at the base of the proximal phalanx of toe #2 measuring 1.2 cm in length x 0.5 cm in width x 1.2 cm in depth, base of wound with yellow tissue, sutures intact to incision line, dusky discoloration to wound edges, distal aspect of incision line, light periwound erythema, no streaking, no odor. Full thickness surgical wound to the plantar aspect of the left foot at the 1st metatarsal head measuring 3 cm in length x 1 cm in width x 2.2 cm in depth, base of wound with yellow tissue, sutures intact to incision line, dusky discoloration to wound edges, distal aspect of incision line, no pus, no odor, light periwound erythema. 75 mls of bloody drainage observed to canister. - Lab Result Diagrams: 01/02/18 06:49 01/02/18 06:49 Labs: Abnormal lab results WBC 13.6 K/mcL (4.3-11.1) H 01/02/18 06:49 RBC 3.74 M/mcL (3.82-4.97) L 01/02/18 06:49 Hgb 10.3 g/dL (11.5-15.4) L 01/02/18 06:49 Hct 32.7 % (35.3-44.9) L 01/02/18 06:49 MCH 27.5 pg (28.0-33.3) L 01/02/18 06:49 MCHC 31.5 g/dL (31.6-35.5) L 01/02/18 06:49 Neutrophils # 10.0 K/mcL (1.6-8.9) H 01/02/18 06:49 ESR 96 mm/hr (0-15) H 12/29/17 22:37 Sodium 135 mEq/L (136-145) L 01/02/18 06:49 BUN 25 mg/dL (8-23) H 01/02/18 06:49 Creatinine 2.07 mg/dL (0.60-1.20) H 01/02/18 06:49 Est GFR ( Amer) 30 (> 60) L 01/02/18 06:49 Est GFR (Non-Af Amer) 24 (> 60) L 01/02/18 06:49 Glucose 147 mg/dL (70-105) H 01/02/18 06:49 POC Glucose 112 mg/dL (70-99) H 01/02/18 11:44 Calcium 8.4 mg/dL (8.6-10.3) L 01/02/18 06:49 Direct Bilirubin 0.3 mg/dL (0.0-0.2) H 12/27/17 18:21 AST 7 Units/L (13-39) L 12/27/17 18:21 C-Reactive Protein 147 mg/L (Less than 10) H 12/29/17 22:37 Albumin 3.1 g/dL (3.5-5.7) L 12/27/17 18:21 Globulin 4.3 g/dL (2.4-3.5) H 12/27/17 18:21 Albumin/Globulin Ratio 0.7 (1.1-2.2) L 12/27/17 18:21 Vancomycin Trough 30 mcg/mL (5-10) H 12/30/17 03:45 Microbiology, Last 48 Hours 12/31/17 18:45 Wound Culture - Preliminary Left Foot No pathogens isolated. 12/27/17 19:00 Anaerobic Culture - Final Left Foot Anaerobic conditions were compromised due to failure of the anaerobic pouch to seal correctly, therefore, sample cannot be assessed for anaerobic organisms. - VTE Documentation of Mechanical Device: Intermittent pneumatic compression device Consult Discharge Plan - Plan Additional Instructions: Please return to the ER if worsening of your current symptoms or development of increased swelling or new pain in your foot. If you develop fevers, chills, chest pain, or shortness of breath please return to the ER. Please take medication as prescribed: Please follow up with your PCP in 1-2 weeks Please follow up with Infectious Disease in 2-3 weeks Referrals: Elgin Hernandez CNP [Primary Care Provider] - (web request sent on 12/30/17)
[2018-01-02] MEDS: rOPINIRole 1 MG TABLET PO SCH (22:45)
[2018-01-03] MEDS: *HR* Heparin 5,000 UNIT/ML VIAL SQ SCH ×3 (07:07→20:38)
--- NOTE | 2018-01-03 08:34 | Infectious Disease Progress No ---
Date of Encounter: 01/03/18 Time of Encounter: 08:34 - Assessment and Plan (1) Sepsis Current Visit: Yes Status: Resolved 62-year-old female with uncontrolled type 2 diabetes presented with tachycardia , elevated WBC around 17 and left foot osteomyelitis and wound infection associated with gas-forming bacteria. Organism from wound culture: Group B streptococci Initial lactic acid 1.5 Initial CRP 147, ESR 96 - Blood culture 12/27/2017 preliminarily no growth - Anaerobic culture from left foot 12/27/2017 compromised unable to grow anaerobic organisms.. Pathology bone biopsy- osteomylitis Current antibiotics Zosyn IV (day #5), Vancomycin D/c'd 12/31 CrCl: 37 01/01: WBC 14.4 likely secondary to surgical intervention yesterday, tachycardia , patient appears clinically stable and improving. 01/02: WBC trending down, patient clinically stable and improving. 01/03: WBC continues to trend down, clinically stable. Plan: - IV Penicillin With total 6 weeks of IV antibiotic therapy. - no growth from other cultures. Anaerobic culture may take total of 5 days, currently no growth. - Okay to place PICC line - Continue monitor WBC with CBC and renal function with BMP outpatient Qualifiers: Sepsis type: sepsis due to unspecified organism Qualified Code(s): A41.9 - Sepsis, unspecified organism (2) Osteomyelitis Current Visit: Yes Status: Acute Left foot osteomyelitis with gas-forming bacteria. - Bone biopsy performed 12/27/2017 with osteomyelitis. - Wound culture from 12/27/2017 demonstrates group B strep - Wound culture intaoperative- NO growth. - Anaerobic culture compromised and unable to assess for anaerobic organisms. - Post op second wound washout 12/31- wound cultures and anaerobic cultures collected so far no growth. - Clinically improving - Current antibiotics as discussed above. - Weekly trend ESR and CRP Qualifiers: Osteomyelitis type: other acute Osteomyelitis location: foot Laterality: left Qualified Code(s): M86.172 - Other acute osteomyelitis, left ankle and foot (3) Uncontrolled diabetes mellitus Current Visit: Yes Status: Acute Patient is uncontrolled type 2 diabetes, to which she admits to. - Clinical findings but correlates with long-term uncontrolled type 2 diabetes - It is vital that she maintains strict glucose regulation to improve chances of healing and prevent further infections and progressive disease. I discussed this with Ms. Vallejo. Qualifiers: Diabetes mellitus type: type 2 Diabetes mellitus data entry representative insulin use: with data entry representative use Diabetes mellitus complication status: with circulatory complication Diabetes mellitus complication detail: with peripheral angiopathy without gangrene Qualified Code(s): E11.51 - Type 2 diabetes mellitus with diabetic peripheral angiopathy without gangrene; E11.65 - Type 2 diabetes mellitus with hyperglycemia; E11.65 - Type 2 diabetes mellitus with hyperglycemia; E11.65 - Type 2 diabetes mellitus with hyperglycemia; E11.65 - Type 2 diabetes mellitus with hyperglycemia; Z79.4 - prison (current) use of insulin; Z79.4 - real estate director (current) use of insulin; Z79.4 - prison (current ) use of insulin; Z79.4 - real estate director (current) use of insulin (4) CKD (chronic kidney disease) stage 3, GFR 30-59 ml/min Current Visit: Yes Status: Acute Chronic likely secondary to diabetes. - Management per primary team. (5) Acute on chronic kidney failure Current Visit: Yes Status: Chronic Creatinine elevated yet improving. Elevation in the setting of sepsis and osteomyelitis. - Improving, management per primary team - Renally dose antibiotics and avoid nephrotoxic medications. Qualifiers: Acute renal failure type: unspecified Chronic kidney disease stage: stage 3 (moderate) Qualified Code(s): N17.9 - Acute kidney failure, unspecified; N18.3 - Chronic kidney disease, stage 3 (moderate); N18.3 - Chronic kidney disease, stage 3 (moderate) - Subjective Interval history: Ms. Vallejo 62-year-old female seen and evaluated patient bedside this morning. She is alert awake interactive no acute distress. She tolerated oral intake without complaints. Denies any fevers, chills, diaphoresis, shortness of breath, chest pain or cough or sputum production. She denies any abdominal pain is having appropriate output in her colostomy bag. She continues to have pain with her left foot which she says is managable, but says it is healing well and she is tolerating wound VAC at this time. Patient states she has a vehicle and can drive. She has no further questions for infectious disease, understands antibiotic treatments. Infect Dis PN-Objective Data - Labs CBC & Chem 7: 01/03/18 04:00 01/03/18 04:00 Labs: Laboratory Results - last 24 hr 01/02/18 01/02/18 07:31 11:44 POC Glucose 141 H 112 H Cultures: Cultures 12/31/17 18:45 Wound Culture - Final Left Foot No pathogens isolated. 12/27/17 19:00 Anaerobic Culture - Final Left Foot Anaerobic conditions were compromised due to failure of the anaerobic pouch to seal correctly, therefore, sample cannot be assessed for anaerobic organisms. 12/27/17 19:00 Wound Culture - Final Left Foot No pathogens isolated. Exam - Constitutional Vitals: Temp Pulse Resp BP Pulse Ox 97.9 F 89 20 98/64 90 01/03/18 07:45 01/03/18 07:45 01/03/18 07:45 01/03/18 07:45 01/03/18 07:45 Exam: General: Patient alert, awake, oriented 3, interactive, in no acute distress HEENT: Normocephalic, atraumatic, oral mucosa moist, uvula midline, neck supple trachea midline no palpable lymphadenopathy, no thyromegaly. Chest: Symmetric bilateral correlating with respiratory effort, effort nonlabored. Cardiac: Regular rate and rhythm, positive S1 and S2. no bruits appreciated bilateral carotids, Radial pulses 2+ bilateral, posterior tibial and dorsal pedal pulses 2+ bilateral. Respiratory: Clear to auscultation all lung chapman Abdomen: Soft, nontender, positive bowel sounds, Colostomy in place without surrounding erythema or discomfort with palpation. no palpable masses appreciated on examination Extremities: Symmetric bilateral, right foot demonstrates elevated foot arch, hammer toes, smooth skin with diminished pulses bilaterally. Left foot is wrapped mild drainage through the bandages, improving erythema.. Neurologic: Face symmetric, muscle strength symmetric bilateral upper and lower extremities. - VTE Documentation of Mechanical Device: Intermittent pneumatic compression device Consult Discharge Plan - Plan Additional Instructions: Please return to the ER if worsening of your current symptoms or development of increased swelling or new pain in your foot. If you develop fevers, chills, chest pain, or shortness of breath please return to the ER. Please take medication as prescribed: Please follow up with your PCP in 1-2 weeks Please follow up with Infectious Disease in 2-3 weeks Referrals: Elgin Hernandez CNP [Primary Care Provider] - (web request sent on 12/30/17) - Attending Attestation I examined this patient and my medical decision-making was reviewed with the Resident Physician. I agree with the documented findings, disposition and treatment plan as described except to the extent set forth below.
[2018-01-03] MEDS: Insulin LISPRO 300 UNITS/3 ML VIAL SQ SCH ×3 (08:42→16:44)
[2018-01-03] MEDS: Piperacillin/Tazobactam 3.375 GM in 0.9 % Sodium Chloride Mini Bag 100 ML IVPB SCH ×2 (08:42→15:51)
[2018-01-03] MEDS: Insulin NPH/REG 70/30 100 UNIT/ML (x5UNIT) SQ SCH ×2 (08:42→20:47)
[2018-01-03] MEDS: Gabapentin 300 MG CAPSULE PO SCH ×3 (08:43→20:38)
[2018-01-03] MEDS: Neosporin OINT 15 GM TUBE TP SCH (08:44)
--- NOTE | 2018-01-03 09:03 | Internal Med Progress Note ---
<Elvin Yarbrough - Last Filed: 01/03/18 09:28> Date of Encounter: 01/03/18 Time of Encounter: 08:30 - Assessment and plan (1) Sepsis Current Visit: Yes Status: Resolved Assessment and plan: Now resolved 3 SIRS criteria present at admission: Febrile, leukocytosis, tachycardia Suspected source from diabetic ulcer/osteomyelitis Current organism unknown Lactic acid of presentation 1.5 01/01/18 Though patient still meets sepsis criteria, the increase in her WBC and tachycardia is likely a result of the surgery that she had yesterday. We will continue to monitor and change AB if necessary Qualifiers: Sepsis type: sepsis due to unspecified organism Qualified Code(s): A41.9 - Sepsis, unspecified organism (2) Osteomyelitis Current Visit: Yes Status: Acute Assessment and plan: Patient presented to [facility] with left foot pain and swelling Found to have imaging suspicious for osteomyelitis with gas in her left foot Currently on Vancomycin and Zosyn Taken for surgery on 12/27/17 for I&D with cultures Podiatry plans for another wash out and biopsy today Wound culture from 12/27 shows group B strep Wound cultures so far negative, but pathology is consistent with oseopmyelitis Patient discussed with ID this morning, patient will likely go home on penicillin. Though they would feel more comfortable waiting 1 more day for cultures from procedure performed on 12/31/17 We will continue vancomycin and Zosyn Day 8 Continued antibiotics per ID, but per discussion yesterday will possibly deescalate to Pen G Podiatry consulted and appreciate continued assistance with management/care We will wait for further wound cultures Will consult ID and appreciate recommendations for continued management/care and assistance with coordinating halfway antibiotics Qualifiers: Osteomyelitis type: other acute Osteomyelitis location: foot Laterality: left Qualified Code(s): M86.172 - Other acute osteomyelitis, left ankle and foot (3) Acute on chronic kidney failure Current Visit: Yes Status: Chronic Assessment and plan: Patient has history of chronic kidney disease stage III with baseline serum creatinine of 1.4 and baseline GFR of 40 Presented with decreased renal function with serum creatinine around 2.3 and GFR of 21 Improvement in patient's renal function seen today, approaching her baseline renal function Likely due to patient infection and possibly from vancomycin as well We will treat patient infection as above Encourage greater amount of oral intake Avoid potential nephrotoxic agents We will monitor chemistry daily Qualifiers: Acute renal failure type: unspecified Chronic kidney disease stage: stage 3 (moderate) Qualified Code(s): N17.9 - Acute kidney failure, unspecified; N18.3 - Chronic kidney disease, stage 3 (moderate); N18.3 - Chronic kidney disease, stage 3 (moderate) (4) Hyperkalemia Current Visit: Yes Status: Resolved Assessment and plan: Presented with potassium 5.8, but uncontrolled diabetes Was given 10 units IV insulin with improvement of potassium to 4.5 Patient hyperkalemia likely due to uncontrolled diabetes and hyperglycemia Resolution of patient hyperkalemia seen with control patient blood sugar We will continue to monitor potassium closely (5) 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 Current Visit: Yes Status: Chronic Assessment and plan: Patient takes 35 units twice a day she will and at home Patient hemoglobin A1c found to be 13.2 on 12/13/17 Has been significantly hyperglycemic with blood sugars ranging between the mid 400s to low 200s, improvement seen and patient now having blood sugars within normal range We will have high-dose insulin sliding scale We will readjust insulin administration tomorrow Qualifiers: Diabetes mellitus halfway insulin use: with petroleum terminal plant operator use Diabetes mellitus complication detail: with neuropathic arthropathy Qualified Code(s): 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; E08.65 - Diabetes mellitus due to underlying condition with hyperglycemia; E08.65 - Diabetes mellitus due to underlying condition with hyperglycemia; E08.65 - Diabetes mellitus due to underlying condition with hyperglycemia; E08.65 - Diabetes mellitus due to underlying condition with hyperglycemia; Z79.4 - petroleum terminal plant operator (current) use of insulin; Z79.4 - halfway ( current) use of insulin; Z79.4 - petroleum terminal plant operator (current) use of insulin; Z79.4 - halfway (current) use of insulin (6) Mood disorder Current Visit: Yes Status: Chronic Assessment and plan: Stable. Continue home medications (7) Hypertension Current Visit: Yes Status: Chronic Assessment and plan: Controlled on home medications Qualifiers: Hypertension type: essential hypertension Qualified Code(s): I10 - Essential (primary) hypertension (8) DVT prophylaxis Current Visit: Yes Status: Acute Assessment and plan: SCDs Heparin subcutaneous 3 times a day - Subjective Interval history: Patient reports that she is doing well this morning with no new concerns/ complaints. She states that she is still having some tenderness in her foot, but that it was far worse yesterday afternoon when it was evaluated by podiatry. She denies an fevers/chills, chest pain, shortness of breath, or weakness. - Constitutional Vitals: Temp Pulse Resp BP Pulse Ox 97.9 F 89 20 98/64 90 01/03/18 07:45 01/03/18 07:45 01/03/18 07:45 01/03/18 07:45 01/03/18 07:45 General appearance: Present: A&O X 3 Exam: General: Cooperative, pleasant, no acute distress, alert and oriented 3, answers questions appropriately, obese HEENT: Normocephalic, atraumatic, Conjunctiva pink, sclera anicteric, oral mucosa moist Respiratory: No accessory muscle usage, clear to auscultation bilaterally, no wheezes/rhonchi/rales appreciated Cardiovascular: Regular rate and rhythm, S1 and S2 present, no murmurs/rubs/ gallops/clicks appreciated GI/abdominal: Nondistended, non-tender, soft, normal bowel sounds, no peritoneal signs, colostomy in place in right anterior abdomen, appears to be functioning well Extremities: No calf tenderness, mild pedal edema appreciated, warm, lower extremity pulses palpable and symmetrical, surgical dressing in place on left foot Neurological: Alert and oriented 3, no facial droop, no focal deficits Skin: Dry, intact, normal color Internal Medicine: Result - Labs CBC & Chem 7: 01/03/18 04:00 01/02/18 06:49 - VTE Documentation of Mechanical Device: Intermittent pneumatic compression device Consult Discharge Plan - Plan Additional Instructions: Please return to the ER if worsening of your current symptoms or development of increased swelling or new pain in your foot. If you develop fevers, chills, chest pain, or shortness of breath please return to the ER. Please take medication as prescribed: Please follow up with your PCP in 1-2 weeks Please follow up with Infectious Disease in 2-3 weeks Referrals: Elgin Hernandez CNP [Primary Care Provider] - (web request sent on 12/30/17) <Kavon Ryan - Last Filed: 01/03/18 13:34> Date of Encounter: 01/03/18 - Constitutional Vitals: Temp Pulse Resp BP Pulse Ox 98.1 F 100 18 117/74 96 01/03/18 11:28 01/03/18 11:28 01/03/18 11:28 01/03/18 11:28 01/03/18 11:28 Internal Medicine: Result - Labs CBC & Chem 7: 01/03/18 04:00 01/03/18 04:00 Labs: Short CBC 01/03/18 Range/Units 04:00 WBC 12.0 H (4.3-11.1) K/mcL Hgb 9.3 L (11.5-15.4) g/dL Hct 29.6 L (35.3-44.9) % Plt Count 289 (140-400) K/mcL Neutrophils # 8.7 (1.6-8.9) K/mcL BMP 01/03/18 04:00 Sodium 136 Potassium 4.5 Chloride 100 Carbon Dioxide 25 BUN 27 H Creatinine 2.08 H Glucose 182 H Calcium 8.3 L - Attending Attestation I performed an independent interview and exam of this patient. I agree with the findings, assessment, and plan of Dr. Yarbrough, internal medicine resident. I discussed the case with him in detail and my input is reflected in his note. Patient continues with IV antibiotics as recommended by infectious disease. Podiatry input is noted. Patient continues with wound VAC which was last changed on January 02. Awaiting any further culture results if they become available. Patient otherwise is hemodynamically stable and we are working on placement issues. All else as above.
[2018-01-03 09:15] LABS: Basophils # 0.1 K/mcL (0.0-0.2); Basophils % 0.4 %; Eosinophils # 0.2 K/mcL (0.0-0.6); Eosinophils % 1.5 %; Hematocrit 29.6 % (35.3-44.9); Hemoglobin 9.3 g/dL (11.5-15.4); Immature Granulocytes % 2.7 % (0-4); Lymphocytes # 1.8 K/mcL (0.6-4.6); Lymphocytes % 15.3 %; Mean Corpuscular HGB Conc 31.4 g/dL (31.6-35.5); Mean Corpuscular Hemoglobin 27.3 pg (28.0-33.3); Mean Corpuscular Volume 86.8 fL (83.0-100.0); Mean Platelet Volume 9.4 fL (9.4-12.4); Monocytes # 0.9 K/mcL (0.0-1.3); Monocytes % 7.8 %; Neutrophils # 8.7 K/mcL (1.6-8.9); Platelet Count 289 K/mcL (140-400); Red Blood Count 3.41 M/mcL (3.82-4.97); Red Cell Distribution Width 13.2 % (11.5-14.5); Segmented Neutrophils % 72.3 %
[2018-01-03 09:32] LABS: Calcium 8.3 mg/dL (8.6-10.3); Potassium 4.5 mEq/L (3.5-5.1)
[2018-01-03] MEDS: OXYCODONE Oral CONC 10 MG/0.5 ML ORAL.SYG SL PRN (10:02)
--- NOTE | 2018-01-03 10:08 | Podiatry Progress Note ---
Date of Encounter: 01/03/18 Time of Encounter: 09:40 - Assessment and Plan (1) Osteomyelitis Current Visit: Yes Status: Acute S/p Incision and drainage of left foot first metatarsal phalangeal joint with incision to bone cortex with bone biopsy of first proximal phalanx and first metatarsal. Incision and drainage of the left foot fifth metatarsal phalangeal joint ulceration with debridement and irrigation by Dr. Johnson on 12/27/17. S/p Partial resection of first metatarsal, left foot. Partial resection of proximal phalanx, left foot. Irrigation and debridement from 2 separate sites on the left foot. Bone biopsy, left foot on 12/31/[address] Johnson. Wound vac changed on 01/02/18. Intact and without leak at this time. Scant amount of thick white/johnson drainage noted to wound vac canister WBC: 12.0 today- ID following- Afebrile Currently receiving IV zosyn, IV vanc has been discontinued Continue IV antibiotic therapy per ID- appreciated Microbiology 12/27/17 19:00 Left Foot Anaerobic Culture - Final Anaerobic conditions were compromised due to failure of the anaerobic pouch to seal correctly, therefore, sample cannot be assessed for anaerobic organisms. 12/27/17 19:00 Left Foot Wound Culture - Final No pathogens isolated. The patient will need to minimize weightbearing to the left foot to allow the incision site/ulceration site to heal. Post op shoe ordered. PT/OT evaluated patient and recommended an ECF/SNF. Will continue to follow patient closely. Patient will need a 1 week f/u in Podiatry with Dr. Johnson. Call with any fevers, chills, n/v or flu like symptoms. Qualifiers: Osteomyelitis type: other acute Osteomyelitis location: foot Laterality: left Qualified Code(s): M86.172 - Other acute osteomyelitis, left ankle and foot (2) Uncontrolled diabetes mellitus Current Visit: Yes Status: Acute Qualifiers: Diabetes mellitus type: type 2 Diabetes mellitus fpc insulin use: with buttermaker helper use Diabetes mellitus complication status: with circulatory complication Diabetes mellitus complication detail: with peripheral angiopathy without gangrene Qualified Code(s): E11.51 - Type 2 diabetes mellitus with diabetic peripheral angiopathy without gangrene; E11.65 - Type 2 diabetes mellitus with hyperglycemia; E11.65 - Type 2 diabetes mellitus with hyperglycemia; E11.65 - Type 2 diabetes mellitus with hyperglycemia; E11.65 - Type 2 diabetes mellitus with hyperglycemia; Z79.4 - [facility] (current) use of insulin; Z79.4 - vermin exterminator (current) use of insulin; Z79.4 - vermin exterminator (current ) use of insulin; Z79.4 - vermin exterminator (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 Incision and drainage of the left foot fifth metatarsal phalangeal joint ulceration with debridement and irrigation by Sessions on . Sessions took patient back to OR on 12/31/17 for a partial resection of first metatarsal, left foot. Partial resection of proximal phalanx , left foot. Irrigation and debridement from 2 separate sites on the left foot. Bone biopsy, left foot. Patient is lying in bed with dressing intact to the left foot and wound vac. Patient denies any pain at this time, states wound vac change yesterday was painful but otherwise no complaints No c/o fever or chills. Patient denies any calf pain or SOB. Objective - Vital Signs Vital Signs: Vital Signs Temp Pulse Resp BP Pulse Ox 01/03/18 07:45 97.9 F 89 20 98/64 90 01/03/18 04:06 97.9 F 95 15 107/71 96 01/03/18 01:44 99.8 F H 87 17 131/75 95 01/02/18 20:36 99.8 F H 106 16 104/69 93 01/02/18 16:18 97.5 F L 107 18 129/83 95 01/02/18 11:38 97.6 F 99 18 111/74 94 Intake and Output 01/02/18 01/03/18 01/03/18 23:59 07:59 15:59 Intake Total 100 / 100 100 / 100 480 / 480 Output Total 700 / 700 400 / 400 Balance -600 / -600 -300 / -300 480 / 480 Intake: IV Fluids 100 / 100 100 / 100 Zosyn 3.375 GM In 0.9 % Sodium 100 / 100 100 / 100 Chloride (Mini-Bag +) 100 ML @ 25 mls/hr IVPB Q8HR [facility] Rx#: [id number] Oral 480 / 480 Output: Urine 400 / 400 400 / 400 Stool 300 / 300 Other: Meal Breakfast Percent of Meal Consumed 100% Stool Consistency soft Stool Characteristics Normal for Patient Stool Color Brown Weight 110.8 kg Blood Glucose* 191 160 Patient Weight 01/03/18 23:59 Weight 110.8 kg - Exam Exam: Podiatry General Exam: General appearance: alert awake oriented X 3. Calm and pleasant, no acute distress.. Vascular: Pedal pulses +2/4 DP/PT , No evidence of cyanosis, pallor or rubor, Edema graded at 1+/4, Skin Temperature warm, No calf pain with manual compression. capillary refill time is immediate to digits. Neurologic: Sensation intact with light touch to foot. . Musculoskeletal: weakness noted, patient has movement but weak and minimal to left foot and toes. States she is just tired. Equal bilaterally. Postop Exam: Wound vac intact at this time to left foot, running without complication. No leak noted, Scant amount of thick johnson drainage noted to wound vac canister. . - Lab Result Diagrams: 01/03/18 04:00 01/03/18 04:00 Labs: Abnormal lab results WBC 12.0 K/mcL (4.3-11.1) H 01/03/18 04:00 RBC 3.41 M/mcL (3.82-4.97) L 01/03/18 04:00 Hgb 9.3 g/dL (11.5-15.4) L 01/03/18 04:00 Hct 29.6 % (35.3-44.9) L 01/03/18 04:00 MCH 27.3 pg (28.0-33.3) L 01/03/18 04:00 MCHC 31.4 g/dL (31.6-35.5) L 01/03/18 04:00 ESR 96 mm/hr (0-15) H 12/29/17 22:37 BUN 27 mg/dL (8-23) H 01/03/18 04:00 Creatinine 2.08 mg/dL (0.60-1.20) H 01/03/18 04:00 Est GFR ( Amer) 29 (> 60) L 01/03/18 04:00 Est GFR (Non-Af Amer) 24 (> 60) L 01/03/18 04:00 Glucose 182 mg/dL (70-105) H 01/03/18 04:00 POC Glucose 112 mg/dL (70-99) H 01/02/18 11:44 Calcium 8.3 mg/dL (8.6-10.3) L 01/03/18 04:00 Direct Bilirubin 0.3 mg/dL (0.0-0.2) H 12/27/17 18:21 AST 7 Units/L (13-39) L 12/27/17 18:21 C-Reactive Protein 147 mg/L (Less than 10) H 12/29/17 22:37 Albumin 3.1 g/dL (3.5-5.7) L 12/27/17 18:21 Globulin 4.3 g/dL (2.4-3.5) H 12/27/17 18:21 Albumin/Globulin Ratio 0.7 (1.1-2.2) L 12/27/17 18:21 Vancomycin Trough 30 mcg/mL (5-10) H 12/30/17 03:45 Microbiology, Last 48 Hours 12/31/17 18:45 Anaerobic Culture - Preliminary Left Foot At this time, no anaerobic growth is present. The culture will be finalized after 5 days of incubation. 12/31/17 18:45 Wound Culture - Final Left Foot No pathogens isolated. 12/27/17 19:00 Anaerobic Culture - Final Left Foot Anaerobic conditions were compromised due to failure of the anaerobic pouch to seal correctly, therefore, sample cannot be assessed for anaerobic organisms. - VTE Documentation of Mechanical Device: Intermittent pneumatic compression device Consult Discharge Plan - Plan Additional Instructions: Please return to the ER if worsening of your current symptoms or development of increased swelling or new pain in your foot. If you develop fevers, chills, chest pain, or shortness of breath please return to the ER. Please take medication as prescribed: Please follow up with your PCP in 1-2 weeks Please follow up with Infectious Disease in 2-3 weeks Referrals: Elgin Hernandez CNP [Primary Care Provider] - (web request sent on 12/30/17)
[2018-01-03] MEDS: rOPINIRole 1 MG TABLET PO SCH (20:38)
[2018-01-03] MEDS: *HR* OxyCODONE/APAP 10/325 TABLET PO PRN (20:38)
[2018-01-04] MEDS: Insulin LISPRO 300 UNITS/3 ML VIAL SQ SCH ×5 (00:08→22:12)
[2018-01-04] MEDS: Piperacillin/Tazobactam 3.375 GM in 0.9 % Sodium Chloride Mini Bag 100 ML IVPB SCH ×3 (00:22→15:34)
[2018-01-04] MEDS: *HR* OxyCODONE/APAP 10/325 TABLET PO PRN ×2 (03:03→09:14)
[2018-01-04] MEDS: *HR* Heparin 5,000 UNIT/ML VIAL SQ SCH ×3 (05:10→22:18)
[2018-01-04 06:56] LABS: Basophils # 0.1 K/mcL (0.0-0.2); Basophils % 0.4 %; Eosinophils # 0.2 K/mcL (0.0-0.6); Hematocrit 29.5 % (35.3-44.9); Hemoglobin 9.2 g/dL (11.5-15.4); Immature Granulocytes % 4.6 % (0-4); Lymphocytes # 1.7 K/mcL (0.6-4.6); Lymphocytes % 14.3 %; Mean Corpuscular HGB Conc 31.2 g/dL (31.6-35.5); Mean Corpuscular Hemoglobin 27.4 pg (28.0-33.3); Mean Corpuscular Volume 87.8 fL (83.0-100.0); Mean Platelet Volume 9.7 fL (9.4-12.4); Monocytes # 0.8 K/mcL (0.0-1.3); Monocytes % 6.6 %; Neutrophils # 8.8 K/mcL (1.6-8.9); Platelet Count 294 K/mcL (140-400); Red Blood Count 3.36 M/mcL (3.82-4.97); Red Cell Distribution Width 13.1 % (11.5-14.5); Segmented Neutrophils % 72.1 %
[2018-01-04 06:58] LABS: Calcium 8.3 mg/dL (8.6-10.3); Potassium 4.6 mEq/L (3.5-5.1)
[2018-01-04] MEDS: Gabapentin 300 MG CAPSULE PO SCH ×3 (09:14→22:18)
[2018-01-04] MEDS: Insulin NPH/REG 70/30 100 UNIT/ML (x5UNIT) SQ SCH ×3 (09:36→23:10)
[2018-01-04] MEDS: Neosporin OINT 15 GM TUBE TP SCH (15:31)
--- NOTE | 2018-01-04 16:49 | Internal Med Progress Note ---
Date of Encounter: 01/04/18 Time of Encounter: 11:00 - Assessment and plan (1) Sepsis Current Visit: Yes Status: Resolved Assessment and plan: Resolved Qualifiers: Sepsis type: sepsis due to unspecified organism Qualified Code(s): A41.9 - Sepsis, unspecified organism (2) Osteomyelitis Current Visit: Yes Status: Acute Assessment and plan: As per infectious disease, she now has a PICC line and will need 6 weeks of IV antibiotics, anticipate discharge on penicillin. Anus much improved. She is currently day #9 IV Zosyn. Anticipate discharge once arrangements are made. Qualifiers: Osteomyelitis type: other acute Osteomyelitis location: foot Laterality: left Qualified Code(s): M86.172 - Other acute osteomyelitis, left ankle and foot (3) Acute on chronic kidney failure Current Visit: Yes Status: Chronic Assessment and plan: Please exacerbated by sepsis and vancomycin. Vancomycin is now stopped. Continue to monitor. Avoid nephrotoxins. Qualifiers: Acute renal failure type: unspecified Chronic kidney disease stage: stage 3 (moderate) Qualified Code(s): N17.9 - Acute kidney failure, unspecified; N18.3 - Chronic kidney disease, stage 3 (moderate); N18.3 - Chronic kidney disease, stage 3 (moderate) (4) Uncontrolled diabetes mellitus Current Visit: Yes Status: Acute Assessment and plan: Blood sugars are very labile. I will increase her basal insulin. Monitor. Qualifiers: Diabetes mellitus type: type 2 Diabetes mellitus snf insulin use: with snf use Diabetes mellitus complication status: with circulatory complication Diabetes mellitus complication detail: with peripheral angiopathy without gangrene Qualified Code(s): E11.51 - Type 2 diabetes mellitus with diabetic peripheral angiopathy without gangrene; E11.65 - Type 2 diabetes mellitus with hyperglycemia; E11.65 - Type 2 diabetes mellitus with hyperglycemia; E11.65 - Type 2 diabetes mellitus with hyperglycemia; E11.65 - Type 2 diabetes mellitus with hyperglycemia; Z79.4 - MCC (current) use of insulin; Z79.4 - dedicated intermodal truck driver (current) use of insulin; Z79.4 - MCC (current ) use of insulin; Z79.4 - dedicated intermodal truck driver (current) use of insulin (5) HTN (hypertension), benign Current Visit: Yes Status: Acute Assessment and plan: Good control, monitor - Time Spent With Patient Total time spent is greater than 50% in coordination of care (as documented) at patient's floor/unit and/or counseling patient: 25 - 35 minutes - Subjective Interval history: CC: Left foot pain HPI: Patient's left foot pain is significantly improved. She is elevating it more. Her blood sugars have run high today and we will be adjusting her insulin. She denies any chest pain or shortness of breath. No nausea, vomiting , diarrhea. No fevers or chills. We are currently awaiting placement. Will need 6 weeks of IV penicillin for osteomyelitis, as directed by infectious disease. - Constitutional Vitals: Temp Pulse Resp BP Pulse Ox 97.4 F L 88 17 116/70 93 01/04/18 15:46 01/04/18 15:46 01/04/18 15:46 01/04/18 15:46 01/04/18 15:46 General appearance: Present: A&O X 3 - Head Head exam: Present: atraumatic, normocephalic - Neck Neck exam general surgery: Present: supple, trachea midline. Absent: lymphadenopathy - Respiratory Respiratory exam: Present: CTAB. Absent: accessory muscle use, rales, rhonchi, wheezes - Cardiovascular Cardiovascular exam: Present: RRR, +S1, +S2. Absent: diastolic murmur, gallop, rubs, systolic murmur - GI/Abdominal GI/Abdominal exam: Present: normal bowel sounds, soft, no peritoneal signs. Absent: distended, tenderness - Extremities Exam Additional comments: Left foot is wrapped and elevated. Vac dressing in place. - Neurological Exam Neurological exam: Present: CN II-XII intact, oriented X3, no focal deficits. Absent: pronater drift, facial droop, speech deficit - Skin Skin exam: Present: dry, intact Internal Medicine: Result - Labs CBC & Chem 7: 01/04/18 06:29 01/04/18 06:29 Labs: Short CBC 01/04/18 Range/Units 06:29 WBC 12.1 H (4.3-11.1) K/mcL Hgb 9.2 L (11.5-15.4) g/dL Hct 29.5 L (35.3-44.9) % Plt Count 294 (140-400) K/mcL Neutrophils # 8.8 (1.6-8.9) K/mcL BMP 01/04/18 06:29 Sodium 133 L Potassium 4.6 Chloride 104 Carbon Dioxide 23 BUN 25 H Creatinine 2.01 H Glucose 216 H Calcium 8.3 L - VTE Documentation of Mechanical Device: Intermittent pneumatic compression device Consult Discharge Plan - Plan Additional Instructions: Please return to the ER if worsening of your current symptoms or development of increased swelling or new pain in your foot. If you develop fevers, chills, chest pain, or shortness of breath please return to the ER. Please take medication as prescribed: Please follow up with your PCP in 1-2 weeks Please follow up with Infectious Disease in 2-3 weeks Referrals: Elgin Hernandez CNP [Primary Care Provider] - (web request sent on 12/30/17)
[2018-01-04] MEDS: rOPINIRole 1 MG TABLET PO SCH (22:18)
[2018-01-05] MEDS: Piperacillin/Tazobactam 3.375 GM in 0.9 % Sodium Chloride Mini Bag 100 ML IVPB SCH ×3 (00:06→15:35)
[2018-01-05] MEDS: *HR* Heparin 5,000 UNIT/ML VIAL SQ SCH ×2 (05:59→15:32)
[2018-01-05] MEDS: Gabapentin 300 MG CAPSULE PO SCH ×3 (08:24→20:06)
[2018-01-05] MEDS: Insulin LISPRO 300 UNITS/3 ML VIAL SQ SCH ×4 (08:24→20:06)
[2018-01-05] MEDS: Insulin NPH/REG 70/30 100 UNIT/ML (x5UNIT) SQ SCH ×4 (08:26→16:45)
[2018-01-05] MEDS: *HR* OxyCODONE/APAP 10/325 TABLET PO PRN ×2 (10:59→16:48)
[2018-01-05] MEDS: Neosporin OINT 15 GM TUBE TP SCH (15:37)
--- NOTE | 2018-01-05 18:31 | Internal Med Progress Note ---
Date of Encounter: 01/05/18 Time of Encounter: 18:26 - Time Spent With Patient - Assessment and plan (1) Sepsis Current Visit: Yes Status: Resolved Assessment and plan: Resolved Qualifiers: Sepsis type: sepsis due to unspecified organism Qualified Code(s): A41.9 - Sepsis, unspecified organism (2) Osteomyelitis Current Visit: Yes Status: Acute Assessment and plan: As per infectious disease, she now has a PICC line and will need 6 weeks of IV antibiotics, anticipate discharge on penicillin. Anus much improved. She is currently day #9 IV Zosyn. Anticipate discharge once arrangements are made. Qualifiers: Osteomyelitis type: other acute Osteomyelitis location: foot Laterality: left Qualified Code(s): M86.172 - Other acute osteomyelitis, left ankle and foot 01/05: awaiting placement. (3) Acute on chronic kidney failure Current Visit: Yes Status: Chronic Assessment and plan: Please exacerbated by sepsis and vancomycin. Vancomycin is now stopped. Continue to monitor. Avoid nephrotoxins. Qualifiers: Acute renal failure type: unspecified Chronic kidney disease stage: stage 3 (moderate) Qualified Code(s): N17.9 - Acute kidney failure, unspecified; N18.3 - Chronic kidney disease, stage 3 (moderate); N18.3 - Chronic kidney disease, stage 3 (moderate) 01/05: Will check BMP in am. (4) Uncontrolled diabetes mellitus Current Visit: Yes Status: Acute Assessment and plan: Blood sugars are very labile. I will increase her basal insulin. Monitor. Qualifiers: Diabetes mellitus type: type 2 Diabetes mellitus intermodal owner operator truck driver insulin use: with intermodal owner operator truck driver use Diabetes mellitus complication status: with circulatory complication Diabetes mellitus complication detail: with peripheral angiopathy without gangrene Qualified Code(s): E11.51 - Type 2 diabetes mellitus with diabetic peripheral angiopathy without gangrene; E11.65 - Type 2 diabetes mellitus with hyperglycemia; E11.65 - Type 2 diabetes mellitus with hyperglycemia; E11.65 - Type 2 diabetes mellitus with hyperglycemia; E11.65 - Type 2 diabetes mellitus with hyperglycemia; Z79.4 - bed bug exterminator (current) use of insulin; Z79.4 - bed bug exterminator (current) use of insulin; Z79.4 - bed bug exterminator (current ) use of insulin; Z79.4 - skilled nursing (current) use of insulin. 01/05: Better controlled. Will continue to monitor. (5) HTN (hypertension), benign Current Visit: Yes Status: Acute Assessment and plan: Good control, monitor - Time Spent With Patient Total time spent is greater than 50% in coordination of care (as documented) at patient's floor/unit and/or counseling patient: 25 - 35 minutes - Subjective Interval history: CC: Left foot pain HPI: Patient's left foot pain is significantly improved. She is elevating it more. Her blood sugars have run high today and we will be adjusting her insulin. She denies any chest pain or shortness of breath. No nausea, vomiting , diarrhea. No fevers or chills. We are currently awaiting placement. Will need 6 weeks of IV penicillin for osteomyelitis, as directed by infectious disease. Above interval hx note by Dr. Ryan less than 15 minutes - Subjective Interval history: Pt denies fever, chills, N/V or diarrhea. Denies chest pain or SOB. - Constitutional Vitals: Temp Pulse Resp BP Pulse Ox 97.4 F L 87 17 130/81 96 01/05/18 15:51 01/05/18 15:51 01/05/18 15:51 01/05/18 15:51 01/05/18 15:51 General appearance: Present: A&O X 3 - Head Head exam: Present: atraumatic, normocephalic - Eye Eye exam: Present: PERRL, conjuntiva pink, sclera anicteric Pupils: Present: PERRL - Neck Neck exam general surgery: Present: supple, trachea midline. Absent: lymphadenopathy - Respiratory Respiratory exam: Present: CTAB. Absent: accessory muscle use, rales, rhonchi, wheezes - Cardiovascular Cardiovascular exam: Present: RRR, +S1, +S2. Absent: diastolic murmur, gallop, rubs, systolic murmur - GI/Abdominal GI/Abdominal exam: Present: normal bowel sounds, soft, no peritoneal signs. Absent: distended, tenderness - Extremities Exam Extremities exam: Present: warm, radial pulses palpable and symmetrical. Absent : calf tenderness, cyanotic, pedal edema - Neurological Exam Neurological exam: Present: CN II-XII intact, oriented X3, no focal deficits. Absent: pronater drift, facial droop, speech deficit - Psychiatric Psychiatric exam: Present: normal affect, normal mood - Skin Skin exam: Present: dry, intact Internal Medicine: Result - Labs CBC & Chem 7: 01/04/18 06:29 01/04/18 06:29 - VTE Documentation of Mechanical Device: Intermittent pneumatic compression device Consult Discharge Plan - Plan Additional Instructions: Please return to the ER if worsening of your current symptoms or development of increased swelling or new pain in your foot. If you develop fevers, chills, chest pain, or shortness of breath please return to the ER. Please take medication as prescribed: Please follow up with your PCP in 1-2 weeks Please follow up with Infectious Disease in 2-3 weeks Referrals: Elgin Hernandez CNP [Primary Care Provider] - (web request sent on 12/30/17)
[2018-01-05] MEDS: rOPINIRole 1 MG TABLET PO SCH (20:06)
[2018-01-05] MEDS: OXYCODONE Oral CONC 10 MG/0.5 ML ORAL.SYG SL PRN (20:13)
[2018-01-06] MEDS: Piperacillin/Tazobactam 3.375 GM in 0.9 % Sodium Chloride Mini Bag 100 ML IVPB SCH ×2 (00:08→09:04)
[2018-01-06] MEDS: *HR* Heparin 5,000 UNIT/ML VIAL SQ SCH ×4 (00:09→20:05)
[2018-01-06] MEDS: *HR* OxyCODONE/APAP 10/325 TABLET PO PRN ×3 (01:30→19:57)
[2018-01-06 05:43] LABS: Calcium 8.7 mg/dL (8.6-10.3); Potassium 4.4 mEq/L (3.5-5.1)
--- NOTE | 2018-01-06 08:41 | Infectious Disease Progress No ---
Date of Encounter: 01/06/18 Time of Encounter: 08:37 - Assessment and Plan (1) Sepsis Current Visit: Yes Status: Resolved patient presented with tachycardia, elevated WBC, and left foot osteomyelitis and wound infection associated with gas-forming bacteria. Initial lactic acid 1.5 Blood culture 12/27/2017 no growth 12/27 Organism from wound culture: Group B streptococci Anaerobic culture from left foot 12/27/2017 compromised Pathology bone biopsy- osteomylitis 12/29/17: CRP 147, ESR 96 CrCl: 37 01/01: WBC 14.4 likely secondary to surgical intervention yesterday, tachycardia , patient appears clinically stable and improving. 01/02: WBC trending down, patient clinically stable and improving. 01/03: WBC continues to trend down, clinically stable. 01/06: no CBC done. Plan: Current antibiotics Zosyn IV (day #10), Vancomycin D/c'd 12/31 (received 4 days) switch to IV Penicillin once anaerobic culture finalized, With total 6 weeks of IV antibiotic therapy. PICC line placed 01/02/18 Continue monitor WBC with CBC and renal function with BMP outpatient Trend ESR/CRP weekly (ordered for tomorrow) Qualifiers: Sepsis type: sepsis due to unspecified organism Qualified Code(s): A41.9 - Sepsis, unspecified organism (2) Osteomyelitis Current Visit: Yes Status: Acute Left foot osteomyelitis with gas-forming bacteria. on 12/27/2017, patient had I&D of the left foot 1st metatarsal phalangeal joint to bone cortex with bone biopsy of first proximal phalanx and first metatarsal. Also had I&D of the left foot fifth metatarsal phalangeal joint ulceration with debridement and irrigation. On 12/31/17, she had partial resection of the 1st metatarsal of the left foot, partial resection of the proximal phalanx, left foot. She had irrigation and department from 2 separate sites of the left foot with bone biopsy Wound culture from 12/27/17 demonstrates group B strep 12/27 Wound culture intaoperative- NO growth. 12/27: Anaerobic culture compromised and unable to assess for anaerobic organisms. 12/31: repeat Anaerobic culture: preliminary no growth. 12/31 intraoperative wound culture: No growth. Plan: Current antibiotics as discussed above. Weekly trend ESR and CRP Qualifiers: Osteomyelitis type: other acute Osteomyelitis location: foot Laterality: left Qualified Code(s): M86.172 - Other acute osteomyelitis, left ankle and foot (3) Uncontrolled diabetes mellitus Current Visit: Yes Status: Acute History of uncontrolled type II diabetes last A1 C from 12/13/17 was 13.2% patient was counseled extensively on importance of tight glycemic control, diet , exercise to prevent further occurrences of osteomyelitis. Qualifiers: Diabetes mellitus type: type 2 Diabetes mellitus lobsterman insulin use: with lobsterman use Diabetes mellitus complication status: with circulatory complication Diabetes mellitus complication detail: with peripheral angiopathy without gangrene Qualified Code(s): E11.51 - Type 2 diabetes mellitus with diabetic peripheral angiopathy without gangrene; E11.65 - Type 2 diabetes mellitus with hyperglycemia; E11.65 - Type 2 diabetes mellitus with hyperglycemia; E11.65 - Type 2 diabetes mellitus with hyperglycemia; E11.65 - Type 2 diabetes mellitus with hyperglycemia; Z79.4 - half-way (current) use of insulin; Z79.4 - termite technician (current) use of insulin; Z79.4 - termite technician (current ) use of insulin; Z79.4 - half-way (current) use of insulin (4) Acute on chronic kidney failure Current Visit: Yes Status: Chronic Creatinine continues to be improving. Her baseline is around 1.8 management per primary team Renally dose antibiotics and avoid nephrotoxins Qualifiers: Acute renal failure type: unspecified Chronic kidney disease stage: stage 3 (moderate) Qualified Code(s): N17.9 - Acute kidney failure, unspecified; N18.3 - Chronic kidney disease, stage 3 (moderate); N18.3 - Chronic kidney disease, stage 3 (moderate) (5) CKD (chronic kidney disease) stage 3, GFR 30-59 ml/min Current Visit: Yes Status: Acute Chronic likely secondary to diabetes. plan as above - Subjective Interval history: 62-year-old female evaluated at bedside. She was sitting up in bed resting comfortably upon examination. Patient denies nausea, vomiting, diarrhea, fever , chills, chest pain, shortness of breath, cough. Her only complaint today is that her left foot is hurting her from the dressing change that was done earlier this morning. She appears to be in no acute distress. SHe is having appropriate output in her colostomy bag. Infect Dis PN-Objective Data - Labs CBC & Chem 7: 01/06/18 13:07 01/06/18 05:03 Labs: Laboratory Results - last 24 hr 01/05/18 01/05/18 01/06/18 10:47 15:48 05:03 Sodium 135 L Potassium 4.4 Chloride 104 Carbon Dioxide 24 BUN 23 Creatinine 1.94 H Est GFR ( Amer) 32 L Est GFR (Non-Af Amer) 26 L BUN/Creatinine Ratio 12 Glucose 135 H POC Glucose 137 H 193 H Calculated Osmolality 286 Calcium 8.7 Cultures: Cultures 12/31/17 18:45 Anaerobic Culture - Preliminary Left Foot At this time, no anaerobic growth is present. The culture will be finalized after 5 days of incubation. 12/31/17 18:45 Wound Culture - Final Left Foot No pathogens isolated. 12/27/17 19:00 Anaerobic Culture - Final Left Foot Anaerobic conditions were compromised due to failure of the anaerobic pouch to seal correctly, therefore, sample cannot be assessed for anaerobic organisms. 12/27/17 19:00 Wound Culture - Final Left Foot No pathogens isolated. Exam - Constitutional Vitals: Temp Pulse Resp BP Pulse Ox 98.1 F 85 17 131/82 92 01/06/18 07:08 01/06/18 07:08 01/06/18 07:08 01/06/18 07:08 01/06/18 07:08 General appearance: cooperative, no acute distress, obese - Head Head exam: Present: atraumatic, normocephalic - Respiratory Respiratory exam: Present: decreased breath sounds - Cardiovascular Cardiovascular exam: Present: RRR, +S1, +S2 - GI/Abdominal Additional comments: Soft, distended, bowel sounds present. Colostomy bag in place with lots of gas and liquid brown stool present. She has a large abdominal hernia present in the mid-upper part of the abdomen. She has multiple abdominal scars from prior bowel surgeries. - Extremities Exam Additional comments: No cyanosis or pedal edema present in the lower extremities. Left lower extremity is wrapped and attached to wound VAC. - Neurological Exam Neurological exam: Present: alert, oriented X3, no focal deficits - Psychiatric Psychiatric exam: Present: normal affect, normal mood - VTE Documentation of Mechanical Device: Intermittent pneumatic compression device Consult Discharge Plan - Plan Additional Instructions: Please return to the ER if worsening of your current symptoms or development of increased swelling or new pain in your foot. If you develop fevers, chills, chest pain, or shortness of breath please return to the ER. Please take medication as prescribed: Please follow up with your PCP in 1-2 weeks Please follow up with Infectious Disease in 2-3 weeks Referrals: Elgin Hernandez CNP [Primary Care Provider] - (web request sent on 12/30/17) - Attending Attestation I examined this patient and my medical decision-making was reviewed with the Resident Physician. I agree with the documented findings, disposition and treatment plan as described except to the extent set forth below.
[2018-01-06] MEDS: Insulin NPH/REG 70/30 100 UNIT/ML (x5UNIT) SQ SCH ×2 (09:03→16:37)
[2018-01-06] MEDS: Gabapentin 300 MG CAPSULE PO SCH ×3 (09:03→19:56)
[2018-01-06] MEDS: Insulin LISPRO 300 UNITS/3 ML VIAL SQ SCH ×4 (09:03→22:15)
[2018-01-06] MEDS: Neosporin OINT 15 GM TUBE TP SCH (09:05)
--- NOTE | 2018-01-06 09:27 | Podiatry Progress Note ---
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: with residential use Diabetes mellitus complication status: with circulatory complication Diabetes mellitus complication detail: with peripheral angiopathy without gangrene Qualified Code(s): E11.51 - Type 2 diabetes mellitus with diabetic peripheral angiopathy without gangrene; E11.65 - Type 2 diabetes mellitus with hyperglycemia; E11.65 - Type 2 diabetes mellitus with hyperglycemia; E11.65 - Type 2 diabetes mellitus with hyperglycemia; E11.65 - Type 2 diabetes mellitus with hyperglycemia; 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 Incision and drainage of the left foot fifth metatarsal phalangeal joint ulceration with debridement and irrigation by Dr. Johnson on 12/27/17. S/p Partial resection of first metatarsal, left foot. Partial resection of proximal phalanx, left foot. Irrigation and debridement from 2 separate sites on the left foot. Bone biopsy, left foot on 12/31/[address] Johnson. Wound vac removed and surgical wounds assessed, no pus, no odor, foot is edematous with light periwound erythema. Surgical wound edges are macerated around sutures. Macerated skin to the 1st interdigital webspace left foot. Microbiology 12/27/17 19:00 Left Foot Anaerobic Culture - Final Anaerobic conditions were compromised due to failure of the anaerobic pouch to seal correctly, therefore, sample cannot be assessed for anaerobic organisms. 12/27/17 19:00 Left Foot Wound Culture - Final No pathogens isolated. Plan: Small black simplace wound vac sponge applied and connected to 125mmhg low continuous suction. All surrounding skin was prepped with AllKare barrier prep, drape was applied. After wound vac was applied, betadine applied to the 1st webspace of toes #1, #2 left foot with 4x4 dry sterile gauze and kerlix. Wound Vac to be changed every 72 hours. Wound vac paperwork has been completed. Antibiotic therapy per Infectious Disease - IV Penicillin x 6 weeks. The patient will need to minimize weightbearing to the left foot to allow the incision site/ulceration site to heal. Post op shoe ordered. PT/OT evaluated patient and recommended an ECF/SNF. Will continue to follow patient closely. Patient will need a 1 week f/u in Podiatry with Dr. Johnson. Qualifiers: Osteomyelitis type: other acute Osteomyelitis location: foot Laterality: left Qualified Code(s): M86.172 - Other acute osteomyelitis, left ankle and foot Subjective Principal diagnosis: Left osteomyelitis with infection and gas gangrene Interval history: Patient is s/p incision and drainage of left foot first metatarsal phalangeal joint with incision to bone cortex with bone biopsy of first proximal phalanx and first metatarsal. Incision and drainage of the left foot fifth metatarsal phalangeal joint ulceration with debridement and irrigation by Dr. Johnson on . Sessions took patient back to OR on 12/31/17 for a partial resection of first metatarsal, left foot. Partial resection of proximal phalanx , left foot. Irrigation and debridement from 2 separate sites on the left foot. Bone biopsy, left foot. Patient is lying in bed with dressing intact to the left foot and wound vac. Patient states her foot is feeling a little better , glass furnace tender on the bottom. No c/o fever or chills overnight. Objective - Vital Signs Vital Signs: Vital Signs Temp Pulse Resp BP Pulse Ox 01/06/18 07:08 98.1 F 85 17 131/82 92 01/06/18 03:40 98.6 F 94 16 127/74 92 01/06/18 00:01 98.4 F 88 14 102/57 94 01/05/18 19:23 98.4 F 98 16 133/84 94 01/05/18 15:51 97.4 F L 87 17 130/81 96 01/05/18 11:51 97.9 F 78 17 139/79 97 01/05/18 10:48 97.9 F 85 17 143/82 97 Intake and Output 01/05/18 01/06/1818 23:59 07:59 15:59 Intake Total 1140 / 1140 120 / 120 Output Total 600 / 600 Balance 540 / 540 120 / 120 Intake: IV Fluids 100 / 100 Zosyn 3.375 GM In 0.9 % Sodium 100 / 100 Chloride (Mini-Bag +) 100 ML @ 25 mls/hr IVPB Q8HR [facility] Rx#: [id number] Oral 1040 / 1040 120 / 120 Output: Urine 350 / 350 Stool 250 / 250 Other: Meal Breakfast Percent of Meal Consumed 100% # Voids 0 0 Weight 100.2 kg Blood Glucose* 150 138 Patient Weight 01/06/18 23:59 Weight 100.2 kg - Exam Exam: General appearance: alert awake oriented X 3. Calm and pleasant, no acute distress.. Vascular: Pedal pulses +1/4 DP/PT , No evidence of cyanosis, pallor or rubor, Edema graded at 1+/4, Skin Temperature warm, No calf pain with manual compression. capillary refill time is immediate to digits. Neurologic: Sensation intact with light touch to foot. . Postop Exam: S/P Open surgical wound to the dorsum of the left foot at the base of the proximal phalanx of toe #2 measuring 1.2 cm in length x 0.5 cm in width x 1.2 cm in depth, base of wound with white fibrous tissue, sutures intact to incision line, macerated wound edges to distal aspect of incision line, light periwound erythema, no streaking, no odor. Full thickness surgical wound to the plantar aspect of the left foot at the 1st metatarsal head measuring 3 cm in length x 1 cm in width x 2.2 cm in depth, base of wound with yellow tissue, sutures intact to incision line, macerated wound edges, distal aspect of incision line, no pus, no odor, light periwound erythema. Macerated skin to the interdigital webpace of toe #1 ,#2 left foot. 15 mls of bloody drainage observed to canister. - Lab Result Diagrams: 01/04/18 06:29 01/06/18 05:03 Labs: Abnormal lab results WBC 12.1 K/mcL (4.3-11.1) H 01/04/18 06:29 RBC 3.36 M/mcL (3.82-4.97) L 01/04/18 06:29 Hgb 9.2 g/dL (11.5-15.4) L 01/04/18 06:29 Hct 29.5 % (35.3-44.9) L 01/04/18 06:29 MCH 27.4 pg (28.0-33.3) L 01/04/18 06:29 MCHC 31.2 g/dL (31.6-35.5) L 01/04/18 06:29 Immature Gran % 4.6 % (0-4) H 01/04/18 06:29 ESR 96 mm/hr (0-15) H 12/29/17 22:37 Sodium 135 mEq/L (136-145) L 01/06/18 05:03 Creatinine 1.94 mg/dL (0.60-1.20) H 01/06/18 05:03 Est GFR ( Amer) 32 (> 60) L 01/06/18 05:03 Est GFR (Non-Af Amer) 26 (> 60) L 01/06/18 05:03 Glucose 135 mg/dL (70-105) H 01/06/18 05:03 POC Glucose 193 mg/dL (70-99) H 01/05/18 15:48 Direct Bilirubin 0.3 mg/dL (0.0-0.2) H 12/27/17 18:21 AST 7 Units/L (13-39) L 12/27/17 18:21 C-Reactive Protein 147 mg/L (Less than 10) H 12/29/17 22:37 Albumin 3.1 g/dL (3.5-5.7) L 12/27/17 18:21 Globulin 4.3 g/dL (2.4-3.5) H 12/27/17 18:21 Albumin/Globulin Ratio 0.7 (1.1-2.2) L 12/27/17 18:21 Vancomycin Trough 30 mcg/mL (5-10) H 12/30/17 03:45 - VTE Documentation of Mechanical Device: Intermittent pneumatic compression device Consult Discharge Plan - Plan Additional Instructions: Please return to the ER if worsening of your current symptoms or development of increased swelling or new pain in your foot. If you develop fevers, chills, chest pain, or shortness of breath please return to the ER. Please take medication as prescribed: Please follow up with your PCP in 1-2 weeks Please follow up with Infectious Disease in 2-3 weeks Referrals: Elgin Hernandez CNP [Primary Care Provider] - (web request sent on 12/30/17)
[2018-01-06 13:42] LABS: Basophils # 0.1 K/mcL (0.0-0.2); Basophils % 0.7 %; Eosinophils # 0.2 K/mcL (0.0-0.6); Eosinophils % 1.4 %; Hematocrit 32.3 % (35.3-44.9); Hemoglobin 10.2 g/dL (11.5-15.4); Immature Granulocytes % 2.4 % (0-4); Lymphocytes # 1.7 K/mcL (0.6-4.6); Lymphocytes % 14.4 %; Mean Corpuscular HGB Conc 31.6 g/dL (31.6-35.5); Mean Corpuscular Hemoglobin 27.3 pg (28.0-33.3); Mean Corpuscular Volume 86.4 fL (83.0-100.0); Mean Platelet Volume 9.4 fL (9.4-12.4); Monocytes # 0.8 K/mcL (0.0-1.3); Monocytes % 6.5 %; Platelet Count 326 K/mcL (140-400); Red Blood Count 3.74 M/mcL (3.82-4.97); Red Cell Distribution Width 13.2 % (11.5-14.5); Segmented Neutrophils % 74.6 %
--- NOTE | 2018-01-06 13:42 | Internal Med Progress Note ---
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 Diabetes mellitus complication status: with circulatory complication Diabetes mellitus complication detail: with peripheral angiopathy without gangrene Qualified Code(s): E11.51 - Type 2 diabetes mellitus with diabetic peripheral angiopathy without gangrene; E11.65 - Type 2 diabetes mellitus with hyperglycemia; E11.65 - Type 2 diabetes mellitus with hyperglycemia; E11.65 - Type 2 diabetes mellitus with hyperglycemia; E11.65 - Type 2 diabetes mellitus with hyperglycemia; Z79.4 - senior care (current) use of insulin; 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 Collins, who in agreement with the plan) Pt will need 6 weeks of IV abx total PICC line in place psychosocial rehabilitation counselor on board for discharge disposition wound care as per podiatry pain control Qualifiers: Osteomyelitis type: other acute Osteomyelitis location: foot Laterality: left Qualified Code(s): M86.172 - Other acute osteomyelitis, left ankle and foot (4) Acute on chronic kidney failure Current Visit: Yes Status: Chronic Assessment and plan: renal function appears to be at baseline continue to avoid nephrotoxins continue to closely monitor renal function Qualifiers: Acute renal failure type: unspecified Chronic kidney disease stage: stage 3 (moderate) Qualified Code(s): N17.9 - Acute kidney failure, unspecified; N18.3 - Chronic kidney disease, stage 3 (moderate); N18.3 - Chronic kidney disease, stage 3 (moderate) (5) Sepsis Current Visit: Yes Status: Resolved Assessment and plan: Resolved secondary to Osteomyelitis Qualifiers: Sepsis type: sepsis due to unspecified organism Qualified Code(s): A41.9 - Sepsis, unspecified organism (6) Obesity (BMI 30-39.9) Current Visit: Yes Status: Chronic - Time Spent With Patient Total time spent is greater than 50% in coordination of care (as documented) at patient's floor/unit and/or counseling patient: - Subjective Interval history: Patient seen and examined with RN present at bedside. Pt resting in bed and states pain is appropriately controlled. Wound vac applied by podiatry psychosocial rehabilitation counselor on board for discharge disposition discharge pending arrangement of ECF placement with IV abx (pt will need six weeks of IV abx) - Constitutional Vitals: Temp Pulse Resp BP Pulse Ox 98.1 F 92 17 104/69 93 01/06/18 11:27 01/06/18 11:27 01/06/18 11:27 01/06/18 11:33 01/06/18 11:27 General appearance: Present: A&O X 3, no acute distress, obese - Head Head exam: Present: atraumatic, normocephalic - Eye Eye exam: Present: conjuntiva pink, sclera anicteric - Respiratory Respiratory exam: Present: CTAB. Absent: respiratory distress, wheezes - Cardiovascular Cardiovascular exam: Present: RRR, +S1, +S2. Absent: diastolic murmur, gallop, rubs, systolic murmur - GI/Abdominal GI/Abdominal exam: Present: normal bowel sounds (colostomy intact, normal color stool in colostomy bag), soft, no peritoneal signs. Absent: tenderness - Extremities Exam Extremities exam: Present: warm, radial pulses palpable and symmetrical (left foot wound vac/dressing intact ). Absent: calf tenderness - Neurological Exam Neurological exam: Present: oriented X3 Internal Medicine: Result - Labs CBC & Chem 7: 01/04/18 06:29 01/06/18 05:03 Labs: BMP 01/06/18 05:03 Sodium 135 L Potassium 4.4 Chloride 104 Carbon Dioxide 24 BUN 23 Creatinine 1.94 H Glucose 135 H Calcium 8.7 - VTE Documentation of Mechanical Device: Intermittent pneumatic compression device Consult Discharge Plan - Plan Additional Instructions: Please return to the ER if worsening of your current symptoms or development of increased swelling or new pain in your foot. If you develop fevers, chills, chest pain, or shortness of breath please return to the ER. Please take medication as prescribed: Please follow up with your PCP in 1-2 weeks Please follow up with Infectious Disease in 2-3 weeks Referrals: Elgin Hernandez CNP [Primary Care Provider] - (web request sent on 12/30/17)
[2018-01-06] MEDS: Penicillin G Potassium 2,000,000 UNIT in D5% in Water 100 ML IVPB SCH ×2 (16:29→19:57)
[2018-01-06] MEDS: rOPINIRole 1 MG TABLET PO SCH (19:56)
[2018-01-07] MEDS: Penicillin G Potassium 2,000,000 UNIT in D5% in Water 100 ML IVPB SCH ×6 (01:04→22:07)
[2018-01-07] MEDS: *HR* OxyCODONE/APAP 10/325 TABLET PO PRN ×2 (01:36→20:50)
[2018-01-07] MEDS: *HR* Heparin 5,000 UNIT/ML VIAL SQ SCH ×3 (05:02→20:51)
[2018-01-07 06:16] LABS: Basophils # 0.1 K/mcL (0.0-0.2); Basophils % 0.6 %; Eosinophils # 0.2 K/mcL (0.0-0.6); Eosinophils % 1.5 %; Hematocrit 30.2 % (35.3-44.9); Hemoglobin 9.6 g/dL (11.5-15.4); Immature Granulocytes % 1.8 % (0-4); Lymphocytes # 2.2 K/mcL (0.6-4.6); Lymphocytes % 18.6 %; Mean Corpuscular HGB Conc 31.8 g/dL (31.6-35.5); Mean Corpuscular Hemoglobin 27.4 pg (28.0-33.3); Mean Corpuscular Volume 86.3 fL (83.0-100.0); Mean Platelet Volume 9.4 fL (9.4-12.4); Monocytes # 0.8 K/mcL (0.0-1.3); Monocytes % 6.5 %; Neutrophils # 8.3 K/mcL (1.6-8.9); Platelet Count 294 K/mcL (140-400); Red Cell Distribution Width 13.1 % (11.5-14.5)
[2018-01-07 06:37] LABS: Calcium 8.7 mg/dL (8.6-10.3); Magnesium 1.6 mg/dL (1.6-2.6); Phosphorous 4.7 mg/dL (2.7-4.5); Potassium 4.8 mEq/L (3.5-5.1)
[2018-01-07] MEDS: Aspirin 325 MG TABLET PO SCH (08:42)
[2018-01-07] MEDS: Gabapentin 300 MG CAPSULE PO SCH ×3 (08:42→20:51)
[2018-01-07] MEDS: Insulin LISPRO 300 UNITS/3 ML VIAL SQ SCH ×4 (08:44→20:53)
--- NOTE | 2018-01-07 08:45 | Infectious Disease Progress No ---
Date of Encounter: 01/07/18 Time of Encounter: 08:41 - Assessment and Plan (1) Sepsis Current Visit: Yes Status: Resolved patient presented with tachycardia, elevated WBC, and left foot osteomyelitis and wound infection associated with gas-forming bacteria. Initial lactic acid 1.5 Blood culture 12/27/2017 no growth 12/27 Organism from wound culture: Group B streptococci Anaerobic culture from left foot 12/27/2017 compromised repeat anaerobic culture form 12/31: negative Pathology bone biopsy- osteomylitis 12/29/17: CRP 147, ESR 96 01/07 ESR: 96 CrCl: 37 01/01: WBC 14.4 likely secondary to surgical intervention yesterday, tachycardia , patient appears clinically stable and improving. 01/02: WBC trending down, patient clinically stable and improving. 01/03: WBC continues to trend down, clinically stable. 01/06: wbc elevated but stable 01/07: wbc elevated but stable Plan: received 10 days of Zosyn IV (stopped 01/06), received 4 days of Vancomycin ( stopped 12/31) Started IV Penicillin on 01/06 (currently day 2) Will need total 6 weeks of IV antibiotic therapy- treat through 02/06 PICC line placed 01/02/18 Continue monitor WBC with CBC and renal function with BMP outpatient Trend ESR/CRP weekly Qualifiers: Sepsis type: sepsis due to unspecified organism Qualified Code(s): A41.9 - Sepsis, unspecified organism (2) Osteomyelitis Current Visit: Yes Status: Acute Left foot osteomyelitis with gas-forming bacteria. on 12/27/2017, patient had I&D of the left foot 1st metatarsal phalangeal joint to bone cortex with bone biopsy of first proximal phalanx and first metatarsal. Also had I&D of the left foot fifth metatarsal phalangeal joint ulceration with debridement and irrigation. On 12/31/17, she had partial resection of the 1st metatarsal of the left foot, partial resection of the proximal phalanx, left foot. She had irrigation and department from 2 separate sites of the left foot with bone biopsy Wound culture from 12/27/17 demonstrates group B strep 12/27 Wound culture intaoperative- NO growth. 12/27: Anaerobic culture compromised and unable to assess for anaerobic organisms. 12/31: repeat Anaerobic culture: no growth. 12/31 intraoperative wound culture: No growth. Plan: Current antibiotics as discussed above. Weekly trend ESR and CRP Qualifiers: Osteomyelitis type: other acute Osteomyelitis location: foot Laterality: left Qualified Code(s): M86.172 - Other acute osteomyelitis, left ankle and foot (3) Uncontrolled diabetes mellitus Current Visit: Yes Status: Acute History of uncontrolled type II diabetes last A1 C from 12/13/17 was 13.2% patient was counseled extensively on importance of tight glycemic control, diet , exercise to prevent further occurrences of osteomyelitis. 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 insulin; Z79.4 - prison (current) use of insulin; Z79.4 - prison (current ) use of insulin; Z79.4 - prison (current) use of insulin (4) Acute on chronic kidney failure Current Visit: Yes Status: Chronic Creatinine stable Her baseline is around 1.8 management per primary team Renally dose antibiotics and avoid nephrotoxins Qualifiers: Acute renal failure type: unspecified Chronic kidney disease stage: stage 3 (moderate) Qualified Code(s): N17.9 - Acute kidney failure, unspecified; N18.3 - Chronic kidney disease, stage 3 (moderate); N18.3 - Chronic kidney disease, stage 3 (moderate) (5) CKD (chronic kidney disease) stage 3, GFR 30-59 ml/min Current Visit: Yes Status: Acute Chronic likely secondary to diabetes. plan as above - Subjective Interval history: 62-year-old female evaluated at bedside. He was laying in bed sleeping comfortably. She denies nausea, vomiting, diarrhea, fever, chills, chest pain, shortness of breath. She denies any pain today. Infect Dis PN-Objective Data - Labs CBC & Chem 7: 01/07/18 06:02 01/07/18 06:02 Labs: Laboratory Results - last 24 hr 01/05/18 01/06/18 01/06/18 19:28 07:12 11:46 WBC RBC Hgb Hct MCV MCH MCHC RDW Plt Count MPV Immature Gran % Seg Neutrophils % Lymphocytes % Monocytes % Eosinophils % Basophils % Neutrophils # Lymphocytes # Monocytes # Eosinophils # Basophils # ESR Sodium Potassium Chloride Carbon Dioxide BUN Creatinine Est GFR ( Amer) Est GFR (Non-Af Amer) BUN/Creatinine Ratio Glucose POC Glucose 150 H 138 H 161 H Calculated Osmolality Calcium Phosphorus Magnesium 01/06/18 01/06/18 01/07/18 13:07 16:02 06:02 WBC 12.0 H RBC 3.74 L Hgb 10.2 L Hct 32.3 L MCV 86.4 MCH 27.3 L MCHC 31.6 RDW 13.2 Plt Count 326 MPV 9.4 Immature Gran % 2.4 Seg Neutrophils % 74.6 Lymphocytes % 14.4 Monocytes % 6.5 Eosinophils % 1.4 Basophils % 0.7 Neutrophils # 9.0 H Lymphocytes # 1.7 Monocytes # 0.8 Eosinophils # 0.2 Basophils # 0.1 ESR 96 H Sodium Potassium Chloride Carbon Dioxide BUN Creatinine Est GFR ( Amer) Est GFR (Non-Af Amer) BUN/Creatinine Ratio Glucose POC Glucose 155 H Calculated Osmolality Calcium Phosphorus Magnesium 01/07/18 01/07/18 06:02 06:02 WBC 11.6 H RBC 3.50 L Hgb 9.6 L Hct 30.2 L MCV 86.3 MCH 27.4 L MCHC 31.8 RDW 13.1 Plt Count 294 MPV 9.4 Immature Gran % 1.8 Seg Neutrophils % 71.0 Lymphocytes % 18.6 Monocytes % 6.5 Eosinophils % 1.5 Basophils % 0.6 Neutrophils # 8.3 Lymphocytes # 2.2 Monocytes # 0.8 Eosinophils # 0.2 Basophils # 0.1 ESR Sodium 135 L Potassium 4.8 Chloride 102 Carbon Dioxide 26 BUN 23 Creatinine 2.00 H Est GFR ( Amer) 31 L Est GFR (Non-Af Amer) 25 L BUN/Creatinine Ratio 12 Glucose 143 H POC Glucose Calculated Osmolality 286 Calcium 8.7 Phosphorus 4.7 H Magnesium 1.6 Cultures: Cultures 12/31/17 18:45 Anaerobic Culture - Final Left Foot No anaerobes were recovered. 12/31/17 18:45 Wound Culture - Final Left Foot No pathogens isolated. 12/27/17 19:00 Anaerobic Culture - Final Left Foot Anaerobic conditions were compromised due to failure of the anaerobic pouch to seal correctly, therefore, sample cannot be assessed for anaerobic organisms. 12/27/17 19:00 Wound Culture - Final Left Foot No pathogens isolated. Exam - Constitutional Vitals: Temp Pulse Resp BP Pulse Ox 98.2 F 86 16 127/74 92 01/07/18 03:46 01/07/18 03:46 01/07/18 03:46 01/07/18 03:46 01/07/18 03:46 General appearance: cooperative, disheveled, no acute distress, obese - Head Head exam: Present: atraumatic, normocephalic - Respiratory Respiratory exam: Present: wheezes (expiraory wheezing present) - Cardiovascular Cardiovascular exam: Present: RRR, +S1, +S2 - GI/Abdominal Additional comments: Soft, distended, hypoactive bowel sounds present. Colostomy bag in place with brown liquid stool present. Large ventral wall abdominal hernia present - Extremities Exam Extremities exam: Absent: pedal edema (no Cyanosis or pedal edema present) - Back Exam Back exam: Absent: CVA tenderness (L), CVA tenderness (R) - Neurological Exam Neurological exam: Present: alert, oriented X3 - Psychiatric Psychiatric exam: Present: normal affect, normal mood - VTE Documentation of Mechanical Device: Intermittent pneumatic compression device Consult Discharge Plan - Plan Additional Instructions: Please return to the ER if worsening of your current symptoms or development of increased swelling or new pain in your foot. If you develop fevers, chills, chest pain, or shortness of breath please return to the ER. Please take medication as prescribed: Please follow up with your PCP in 1-2 weeks Please follow up with Infectious Disease in 2-3 weeks Referrals: Elgin Hernandez CNP [Primary Care Provider] - (web request sent on 12/30/17) - Attending Attestation I examined this patient and my medical decision-making was reviewed with the Resident Physician. I agree with the documented findings, disposition and treatment plan as described except to the extent set forth below.
[2018-01-07] MEDS: Insulin NPH/REG 70/30 100 UNIT/ML (x5UNIT) SQ SCH ×2 (08:57→16:53)
[2018-01-07] MEDS: Neosporin OINT 15 GM TUBE TP SCH (09:32)
--- NOTE | 2018-01-07 16:56 | Internal Med Progress Note ---
Date of Encounter: 01/07/18 Time of Encounter: 16:54 - Assessment and plan (1) Uncontrolled diabetes mellitus Current Visit: Yes Status: Acute Assessment and plan: BG within acceptable range continue sliding scale insulin algorithm monitor FS and BG ADA diet Qualifiers: Diabetes mellitus type: type 2 Diabetes mellitus chcf insulin use: with local company intermodal truck driver use Diabetes mellitus complication status: with circulatory complication Diabetes mellitus complication detail: with peripheral angiopathy without gangrene Qualified Code(s): E11.51 - Type 2 diabetes mellitus with diabetic peripheral angiopathy without gangrene; E11.65 - Type 2 diabetes mellitus with hyperglycemia; E11.65 - Type 2 diabetes mellitus with hyperglycemia; E11.65 - Type 2 diabetes mellitus with hyperglycemia; E11.65 - Type 2 diabetes mellitus with hyperglycemia; Z79.4 - intermediate (current) use of insulin; Z79.4 - termination clerk (current) use of insulin; Z79.4 - termination clerk (current ) use of insulin; Z79.4 - intermediate (current) use of insulin (2) HTN (hypertension), benign Current Visit: Yes Status: Acute Assessment and plan: BP within acceptable range continue current management hold antihypertensive for SBP<100 closely monitor BP (3) Osteomyelitis Current Visit: Yes Status: Acute Assessment and plan: ID and Podiatry on board and evaluation appreciated continue IV PCN (day 2, start date: 01/06/18) Pt will need 6 weeks of IV abx total PICC line in place group social worker on board for discharge disposition wound care as per podiatry pain control Qualifiers: Osteomyelitis type: other acute Osteomyelitis location: foot Laterality: left Qualified Code(s): M86.172 - Other acute osteomyelitis, left ankle and foot (4) Acute on chronic kidney failure Current Visit: Yes Status: Chronic Assessment and plan: renal function appears to be at baseline continue to avoid nephrotoxins continue to closely monitor renal function Qualifiers: Acute renal failure type: unspecified Chronic kidney disease stage: stage 3 (moderate) Qualified Code(s): N17.9 - Acute kidney failure, unspecified; N18.3 - Chronic kidney disease, stage 3 (moderate); N18.3 - Chronic kidney disease, stage 3 (moderate) (5) Sepsis Current Visit: Yes Status: Resolved Assessment and plan: Resolved secondary to Osteomyelitis Qualifiers: Sepsis type: sepsis due to unspecified organism Qualified Code(s): A41.9 - Sepsis, unspecified organism (6) Obesity (BMI 30-39.9) Current Visit: Yes Status: Chronic - Time Spent With Patient Total time spent is greater than 50% in coordination of care (as documented) at patient's floor/unit and/or counseling patient: - Subjective Interval history: Patient seen and examined at bedside. Resting comfortably and denies any distress. Wound vac applied by podiatry on 01/06/18 group social worker on board for discharge disposition discharge pending arrangement of ECF placement with IV abx (pt will need six weeks of IV abx) - Constitutional Vitals: Temp Pulse Resp BP Pulse Ox 98.2 F 86 16 127/74 92 01/07/18 03:46 01/07/18 03:46 01/07/18 03:46 01/07/18 03:46 01/07/18 03:46 General appearance: Present: A&O X 3, no acute distress, obese - Head Head exam: Present: atraumatic, normocephalic - Eye Eye exam: Present: conjuntiva pink, sclera anicteric - Respiratory Respiratory exam: Present: CTAB. Absent: respiratory distress, wheezes - Cardiovascular Cardiovascular exam: Present: RRR, +S1, +S2. Absent: diastolic murmur, gallop, rubs, systolic murmur - GI/Abdominal GI/Abdominal exam: Present: normal bowel sounds, soft. Absent: tenderness ( colostomy bag with normal color stool) - Extremities Exam Extremities exam: Present: warm, radial pulses palpable and symmetrical (left foot wound vac and dressing intact). Absent: calf tenderness - Neurological Exam Neurological exam: Present: oriented X3 Internal Medicine: Result - Labs CBC & Chem 7: 01/07/18 06:02 01/07/18 06:02 Labs: Short CBC 01/07/18 Range/Units 06:02 WBC 11.6 H (4.3-11.1) K/mcL Hgb 9.6 L (11.5-15.4) g/dL Hct 30.2 L (35.3-44.9) % Plt Count 294 (140-400) K/mcL Neutrophils # 8.3 (1.6-8.9) K/mcL BMP 01/07/18 06:02 Sodium 135 L Potassium 4.8 Chloride 102 Carbon Dioxide 26 BUN 23 Creatinine 2.00 H Glucose 143 H Calcium 8.7 - VTE Documentation of Mechanical Device: Intermittent pneumatic compression device Consult Discharge Plan - Plan Additional Instructions: Please return to the ER if worsening of your current symptoms or development of increased swelling or new pain in your foot. If you develop fevers, chills, chest pain, or shortness of breath please return to the ER. Please take medication as prescribed: Please follow up with your PCP in 1-2 weeks Please follow up with Infectious Disease in 2-3 weeks Referrals: Elgin Hernandez CNP [Primary Care Provider] - (web request sent on 12/30/17)
[2018-01-07] MEDS: rOPINIRole 1 MG TABLET PO SCH (20:51)
[2018-01-08] MEDS: Penicillin G Potassium 2,000,000 UNIT in D5% in Water 100 ML IVPB SCH ×6 (02:17→21:45)
[2018-01-08] MEDS: *HR* Heparin 5,000 UNIT/ML VIAL SQ SCH ×3 (06:13→21:45)
[2018-01-08 07:00] LABS: Basophils # 0.1 K/mcL (0.0-0.2); Basophils % 0.6 %; Eosinophils # 0.2 K/mcL (0.0-0.6); Eosinophils % 1.5 %; Hematocrit 32.5 % (35.3-44.9); Hemoglobin 10.2 g/dL (11.5-15.4); Immature Granulocytes % 2.2 % (0-4); Lymphocytes # 2.6 K/mcL (0.6-4.6); Lymphocytes % 20.9 %; Mean Corpuscular HGB Conc 31.4 g/dL (31.6-35.5); Mean Corpuscular Hemoglobin 27.1 pg (28.0-33.3); Mean Corpuscular Volume 86.4 fL (83.0-100.0); Mean Platelet Volume 9.6 fL (9.4-12.4); Monocytes # 0.7 K/mcL (0.0-1.3); Neutrophils # 8.5 K/mcL (1.6-8.9); Platelet Count 328 K/mcL (140-400); Red Blood Count 3.76 M/mcL (3.82-4.97); Red Cell Distribution Width 13.2 % (11.5-14.5); Segmented Neutrophils % 68.8 %
[2018-01-08 07:46] LABS: Calcium 9.1 mg/dL (8.6-10.3); Magnesium 1.6 mg/dL (1.6-2.6); Phosphorous 5.1 mg/dL (2.7-4.5)
[2018-01-08] MEDS: Aspirin 325 MG TABLET PO SCH (08:30)
[2018-01-08] MEDS: Gabapentin 300 MG CAPSULE PO SCH ×3 (08:30→21:45)
[2018-01-08] MEDS: Insulin LISPRO 300 UNITS/3 ML VIAL SQ SCH ×4 (08:31→21:47)
[2018-01-08] MEDS: *HR* OxyCODONE/APAP 10/325 TABLET PO PRN ×2 (09:30→16:58)
[2018-01-08] MEDS: Insulin NPH/REG 70/30 100 UNIT/ML (x5UNIT) SQ SCH ×2 (10:14→18:43)
[2018-01-08] MEDS: Neosporin OINT 15 GM TUBE TP SCH (10:15)
--- NOTE | 2018-01-08 13:07 | Podiatry Progress Note ---
Date of Encounter: 01/08/18 Time of Encounter: 09:30 - Assessment and Plan (1) Uncontrolled diabetes mellitus Current Visit: Yes Status: Acute Qualifiers: Diabetes mellitus type: type 2 Diabetes mellitus extermination inspector insulin use: with senior living use Diabetes mellitus complication status: with circulatory complication Diabetes mellitus complication detail: with peripheral angiopathy without gangrene Qualified Code(s): E11.51 - Type 2 diabetes mellitus with diabetic peripheral angiopathy without gangrene; E11.65 - Type 2 diabetes mellitus with hyperglycemia; E11.65 - Type 2 diabetes mellitus with hyperglycemia; E11.65 - Type 2 diabetes mellitus with hyperglycemia; E11.65 - Type 2 diabetes mellitus with hyperglycemia; Z79.4 - shelter (current) use of insulin; Z79.4 - moth exterminator (current) use of insulin; Z79.4 - moth exterminator (current ) use of insulin; Z79.4 - moth exterminator (current) use of insulin (2) CKD (chronic kidney disease) stage 3, GFR 30-59 ml/min Current Visit: Yes Status: Acute (3) Osteomyelitis Current Visit: Yes Status: Acute S/p Incision and drainage of left foot first metatarsal phalangeal joint with incision to bone cortex with bone biopsy of first proximal phalanx and first metatarsal. Incision and drainage of the left foot fifth metatarsal phalangeal joint ulceration with debridement and irrigation by Dr. Johnson on 12/27/17. S/p Partial resection of first metatarsal, left foot. Partial resection of proximal phalanx, left foot. Irrigation and debridement from 2 separate sites on the left foot. Bone biopsy, left foot on 12/31/[address] Johnson. Wound vac removed and surgical wounds assessed, no pus, no odor, foot is edematous with light periwound erythema. Surgical wound edges are macerated around sutures. Microbiology 12/27/17 19:00 Left Foot Anaerobic Culture - Final Anaerobic conditions were compromised due to failure of the anaerobic pouch to seal correctly, therefore, sample cannot be assessed for anaerobic organisms. 12/27/17 19:00 Left Foot Wound Culture - Final No pathogens isolated. Plan: Small black simplace wound vac sponge applied and connected to 125mmhg low continuous suction. All surrounding skin was prepped with AllKare barrier prep, drape was applied. After wound vac was applied, betadine applied to the 1st webspace of toes #1, #2 left foot with 4x4 dry sterile gauze and kerlix. Wound Vac to be changed every M-W-. Wound vac paperwork has been completed. Antibiotic therapy per Infectious Disease - IV Penicillin x 6 weeks. The patient will need to minimize weightbearing to the left foot to allow the incision site/ulceration site to heal. Post op shoe ordered. PT/OT evaluated patient and recommended an ECF/SNF. Will continue to follow patient closely. Patient will need a 1 week f/u in Podiatry with Dr. Johnson. Qualifiers: Osteomyelitis type: other acute Osteomyelitis location: foot Laterality: left Qualified Code(s): M86.172 - Other acute osteomyelitis, left ankle and foot Subjective Principal diagnosis: Left osteomyelitis with infection and gas gangrene Interval history: Patient is s/p incision and drainage of left foot first metatarsal phalangeal joint with incision to bone cortex with bone biopsy of first proximal phalanx and first metatarsal. Incision and drainage of the left foot fifth metatarsal phalangeal joint ulceration with debridement and irrigation by Dr. Johnson on . Dr. Johnson took patient back to OR on 12/31/17 for a partial resection of first metatarsal, left foot. Partial resection of proximal phalanx , left foot. Irrigation and debridement from 2 separate sites on the left foot. Bone biopsy, left foot. Patient is lying in bed with dressing intact to the left foot and wound vac. Patient states her foot is feeling a little better , decorating machine tender on the bottom. No c/o fever or chills overnight. Objective - Vital Signs Vital Signs: Vital Signs Temp Pulse Resp BP Pulse Ox 01/08/18 10:56 98.0 F 90 16 112/75 95 01/08/18 07:18 97.8 F 78 16 113/74 94 01/08/18 05:05 98 F 83 16 119/65 94 01/08/18 00:50 98.2 F 87 16 105/70 94 01/07/18 19:21 97.9 F 85 16 116/76 95 01/07/18 16:59 97.9 F 78 18 128/79 94 Intake and Output 01/07/18 01/08/18 01/08/18 23:59 07:59 15:59 Intake Total 200 / 200 200 / 200 360 / 360 Output Total 0 / 0 1600 / 1600 Balance 200 / 200 -1400 / -1400 360 / 360 Intake: IV Fluids 200 / 200 200 / 200 Pfizerpen 2,000,000 UNIT In 200 / 200 200 / 200 Dextrose 5% 100 ML @ 100 mls/hr IVPB Q4H [facility] Rx#:[id number] Oral 0 / 0 0 / 0 360 / 360 Output: Urine 800 / 800 Stool 800 / 800 Wound Drainage 0 / 0 0 / 0 L FOOT 0 / 0 0 / 0 Other: Meal Breakfast Percent of Meal Consumed 100% Stool Consistency liquid Stool Characteristics Normal for Patient Stool Color Brown Weight 101.9 kg Blood Glucose* 164 185 243 Patient Weight 01/08/18 23:59 Weight 101.9 kg - Exam Exam: General appearance: alert awake oriented X 3. Calm and pleasant, no acute distress.. Vascular: Pedal pulses +1/4 DP/PT , No evidence of cyanosis, pallor or rubor, Edema graded at 1+/4, Skin Temperature warm, No calf pain with manual compression. capillary refill time is immediate to digits. Neurologic: Sensation intact with light touch to foot. . Postop Exam: S/P Open surgical wound to the dorsum of the left foot at the base of the proximal phalanx of toe #2 measuring 1.2 cm in length x 0.5 cm in width x 1.2 cm in depth, base of wound with white fibrous tissue, sutures intact to incision line, macerated wound edges to distal aspect of incision line, small area of necrotic tissue to the medial wound edge, light periwound erythema, no streaking, no odor. Full thickness surgical wound to the plantar aspect of the left foot at the 1st metatarsal head measuring 3 cm in length x 1 cm in width x 2.2 cm in depth, base of wound with yellow tissue, sutures intact to incision line, macerated wound edges, distal aspect of incision line, no pus, no odor, light periwound erythema. Superficial wound to the interdigital webpace of toe #1 ,#2 left foot, base of wound is red. No pus, no odor, no tunneling, no sinus tracts. 15 mls of brown drainage observed to canister. - Lab Result Diagrams: 01/08/18 06:30 01/08/18 06:30 Labs: Abnormal lab results WBC 12.3 K/mcL (4.3-11.1) H 01/08/18 06:30 RBC 3.76 M/mcL (3.82-4.97) L 01/08/18 06:30 Hgb 10.2 g/dL (11.5-15.4) L 01/08/18 06:30 Hct 32.5 % (35.3-44.9) L 01/08/18 06:30 MCH 27.1 pg (28.0-33.3) L 01/08/18 06:30 MCHC 31.4 g/dL (31.6-35.5) L 01/08/18 06:30 ESR 96 mm/hr (0-15) H 01/07/18 06:02 Sodium 134 mEq/L (136-145) L 01/08/18 06:30 BUN 25 mg/dL (8-23) H 01/08/18 06:30 Creatinine 1.92 mg/dL (0.60-1.20) H 01/08/18 06:30 Est GFR ( Amer) 32 (> 60) L 01/08/18 06:30 Est GFR (Non-Af Amer) 27 (> 60) L 01/08/18 06:30 Glucose 171 mg/dL (70-105) H 01/08/18 06:30 POC Glucose 185 mg/dL (70-99) H 01/08/18 07:16 Phosphorus 5.1 mg/dL (2.7-4.5) H 01/08/18 06:30 Direct Bilirubin 0.3 mg/dL (0.0-0.2) H 12/27/17 18:21 AST 7 Units/L (13-39) L 12/27/17 18:21 C-Reactive Protein 77 mg/L (Less than 10) H 01/07/18 06:02 Albumin 3.1 g/dL (3.5-5.7) L 12/27/17 18:21 Globulin 4.3 g/dL (2.4-3.5) H 12/27/17 18:21 Albumin/Globulin Ratio 0.7 (1.1-2.2) L 12/27/17 18:21 Vancomycin Trough 30 mcg/mL (5-10) H 12/30/17 03:45 Microbiology, Last 48 Hours 12/31/17 18:45 Anaerobic Culture - Final Left Foot No anaerobes were recovered. - VTE Documentation of Mechanical Device: Intermittent pneumatic compression device Consult Discharge Plan - Plan Additional Instructions: Please return to the ER if worsening of your current symptoms or development of increased swelling or new pain in your foot. If you develop fevers, chills, chest pain, or shortness of breath please return to the ER. Please take medication as prescribed: Please follow up with your PCP in 1-2 weeks Please follow up with Infectious Disease in 2-3 weeks Referrals: Elgin Hernandez CNP [Primary Care Provider] - (web request sent on 12/30/17)
--- NOTE | 2018-01-08 15:17 | Infectious Disease Progress No ---
Date of Encounter: 01/08/18 Time of Encounter: 15:14 - Assessment and Plan (1) Sepsis Current Visit: Yes Status: Resolved The patient had two SIRS criteria on admission. Likely secondary to left foot OM. Improved. WBC up a little, but tachycardia has resolved. No blood cultures were drawn. Qualifiers: Sepsis type: sepsis due to unspecified organism Qualified Code(s): A41.9 - Sepsis, unspecified organism (2) Osteomyelitis Current Visit: Yes Status: Acute Location: Left foot. Causative organism unclear, but previous wound culture grew GBS. Intra-op cultures were negative. Secondary to non-healing foot ulcer sustained from the patient cutting calluses on the bottom of her foot. Left foot xray completed 12/27/17 showed subcutaneous gas throughout the soft tissues of the distal forefoot centered at the second digit compatible with underlying gas-forming infectious process and lucency of the base of the first proximal phalanx and findings suggestive of erosion of the second metatarsal head suspicious for osteomyelitis. Podiatry was consulted. Status post incision and drainage of the left foot first MTP joint with incision to bone cortex with bone biopsy of the first proximal phalanx and first metatarsal and incision and drainage of the left foot fifth MTP joint ulceration with debridement and irrigation 12/27/[address] Johnson. Operative note indicates that the bone was actually infected. Intraoperative cultures were obtained that were negative. Pathology showed findings consistent with acute osteomyelitis. The patient was taken back to the operating room on 12/31/2017 for partial resection of the first metatarsal of the left foot, partial resection of the proximal phalanx of the left foot, irrigation and debridement from 2 separate sites on the left foot, and bone biopsy of the left foot by Dr. johnson. Pathology showed findings consistent with acute ostium myelitis of the first metatarsal head of the left foot. Preop ESR was 96. CRP was 147. Wound care and activity restrictions per the podiatry team. Continue penicillin G 2 million units IV every 4 hours. Duration of treatment depends on the clinical picture, but likely 6 weeks of IV antibiotics will be required. Monitor renal function and dose adjust antibiotics. financial services auditor consulted and assisting with discharge management. Midline his been placed in preparation for discharge. We will need weekly CBC, BUN/creatinine, ESR, and CRP. We will need weekly IV care per protocol. Follow-up with ID 01/22/18 at 0920. Qualifiers: Osteomyelitis type: other acute Osteomyelitis location: foot Laterality: left Qualified Code(s): M86.172 - Other acute osteomyelitis, left ankle and foot (3) Acute on chronic kidney failure Current Visit: Yes Status: Chronic Creatinine stable. Her baseline is around 1.8 Management per primary team. Renally dose antibiotics and avoid nephrotoxins. Qualifiers: Acute renal failure type: unspecified Chronic kidney disease stage: stage 3 (moderate) Qualified Code(s): N17.9 - Acute kidney failure, unspecified; N18.3 - Chronic kidney disease, stage 3 (moderate); N18.3 - Chronic kidney disease, stage 3 (moderate) (4) Uncontrolled diabetes mellitus Current Visit: Yes Status: Acute History of uncontrolled type II diabetes Last A1 C from 12/13/17 was 13.2%. Recommend aggressive glucose management and control to promote wound healing and prevent reinfection. Qualifiers: Diabetes mellitus type: type 2 Diabetes mellitus prison insulin use: with prison use Diabetes mellitus complication status: with circulatory complication Diabetes mellitus complication detail: with peripheral angiopathy without gangrene Qualified Code(s): E11.51 - Type 2 diabetes mellitus with diabetic peripheral angiopathy without gangrene; E11.65 - Type 2 diabetes mellitus with hyperglycemia; E11.65 - Type 2 diabetes mellitus with hyperglycemia; E11.65 - Type 2 diabetes mellitus with hyperglycemia; E11.65 - Type 2 diabetes mellitus with hyperglycemia; Z79.4 - bed bug exterminator (current) use of insulin; Z79.4 - bed bug exterminator (current) use of insulin; Z79.4 - retirement (current ) use of insulin; Z79.4 - bed bug exterminator (current) use of insulin (5) HTN (hypertension), benign Current Visit: Yes Status: Acute (6) Obesity (BMI 30-39.9) Current Visit: Yes Status: Chronic - Subjective Interval history: Patient seen and examined. No acute events noted overnight. Patient reports intermittent pain in the left foot. She denies any fevers or chills or rigors. She denies any chest pain, shortness of breath, or cough. She denies any nausea or vomiting. She reports adequate output from her colostomy and states not anymore than normal. She denies any abdominal pain, urinary complaints, or appetite changes. She denies any oral thrush or new skin lesions. Infect Dis PN-Objective Data - Labs CBC & Chem 7: 01/08/18 06:30 01/08/18 06:30 Labs: Laboratory Results - last 24 hr 01/06/18 01/07/18 01/07/18 20:30 07:46 16:47 WBC RBC Hgb Hct MCV MCH MCHC RDW Plt Count MPV Immature Gran % Seg Neutrophils % Lymphocytes % Monocytes % Eosinophils % Basophils % Neutrophils # Lymphocytes # Monocytes # Eosinophils # Basophils # Sodium Potassium Chloride Carbon Dioxide BUN Creatinine Est GFR ( Amer) Est GFR (Non-Af Amer) BUN/Creatinine Ratio Glucose POC Glucose 128 H 160 H 229 H Calculated Osmolality Calcium Phosphorus Magnesium 01/08/18 01/08/18 01/08/18 06:30 06:30 07:16 WBC 12.3 H RBC 3.76 L Hgb 10.2 L Hct 32.5 L MCV 86.4 MCH 27.1 L MCHC 31.4 L RDW 13.2 Plt Count 328 MPV 9.6 Immature Gran % 2.2 Seg Neutrophils % 68.8 Lymphocytes % 20.9 Monocytes % 6.0 Eosinophils % 1.5 Basophils % 0.6 Neutrophils # 8.5 Lymphocytes # 2.6 Monocytes # 0.7 Eosinophils # 0.2 Basophils # 0.1 Sodium 134 L Potassium 5.0 Chloride 101 Carbon Dioxide 25 BUN 25 H Creatinine 1.92 H Est GFR ( Amer) 32 L Est GFR (Non-Af Amer) 27 L BUN/Creatinine Ratio 13 Glucose 171 H POC Glucose 185 H Calculated Osmolality 286 Calcium 9.1 Phosphorus 5.1 H Magnesium 1.6 Cultures: Cultures 12/31/17 18:45 Anaerobic Culture - Final Left Foot No anaerobes were recovered. 12/31/17 18:45 Wound Culture - Final Left Foot No pathogens isolated. 12/27/17 19:00 Anaerobic Culture - Final Left Foot Anaerobic conditions were compromised due to failure of the anaerobic pouch to seal correctly, therefore, sample cannot be assessed for anaerobic organisms. 12/27/17 19:00 Wound Culture - Final Left Foot No pathogens isolated. Exam - Constitutional Vitals: Temp Pulse Resp BP Pulse Ox 98.0 F 90 16 112/75 95 01/08/18 10:56 01/08/18 10:56 01/08/18 10:56 01/08/18 10:56 01/08/18 10:56 General appearance: cooperative, no acute distress, obese - Head Head exam: Present: atraumatic, normal inspection, normocephalic - Eye Eye exam: Present: EOMI, normal appearance, PERRL Pupils: Present: normal accommodation - ENT ENT exam: Present: mucous membranes moist - Neck Neck exam: Present: normal inspection - Respiratory Respiratory exam: Present: CTAB. Absent: rales, respiratory distress, rhonchi, wheezes - Cardiovascular Cardiovascular exam: Present: RRR, +S1, +S2 - GI/Abdominal GI/Abdominal exam: Present: distended (obese, hernia), normal bowel sounds, soft. Absent: tenderness Additional comments: Colostomy noted to the right abdomen with small amount of brown liquid stool noted in the collection bag. - Extremities Exam Extremities exam: Present: pedal edema (1+ LLE). Absent: joint swelling, tenderness Additional comments: Left foot dressing C/D/I. - Neurological Exam Neurological exam: Present: alert, oriented X3, no focal deficits - Psychiatric Psychiatric exam: Present: normal affect, normal mood - Skin Skin exam: Present: dry, intact, normal color, warm - VTE Documentation of Mechanical Device: Intermittent pneumatic compression device Consult Discharge Plan - Plan Additional Instructions: Please return to the ER if worsening of your current symptoms or development of increased swelling or new pain in your foot. If you develop fevers, chills, chest pain, or shortness of breath please return to the ER. Please take medication as prescribed: Please follow up with your PCP in 1-2 weeks Please follow up with Infectious Disease in 2-3 weeks Referrals: Elgin Hernandez CNP [Primary Care Provider] - (web request sent on 12/30/17) Ivette Delarosa CNP [Advanced Practice Nurse] - 01/22/18 9:20 am
--- NOTE | 2018-01-08 15:33 | Internal Med Progress Note ---
Date of Encounter: 01/08/18 Time of Encounter: 14:10 - Assessment and plan (1) Uncontrolled diabetes mellitus Current Visit: Yes Status: Chronic Assessment and plan: BG within acceptable range continue sliding scale insulin algorithm monitor FS and BG ADA diet Qualifiers: Diabetes mellitus type: type 2 Diabetes mellitus fci insulin use: with fci use Diabetes mellitus complication status: with circulatory complication Diabetes mellitus complication detail: with peripheral angiopathy without gangrene Qualified Code(s): E11.51 - Type 2 diabetes mellitus with diabetic peripheral angiopathy without gangrene; E11.65 - Type 2 diabetes mellitus with hyperglycemia; E11.65 - Type 2 diabetes mellitus with hyperglycemia; E11.65 - Type 2 diabetes mellitus with hyperglycemia; E11.65 - Type 2 diabetes mellitus with hyperglycemia; Z79.4 - extermination supervisor (current) use of insulin; Z79.4 - extermination supervisor (current) use of insulin; Z79.4 - FPC (current ) use of insulin; Z79.4 - FPC (current) use of insulin (2) HTN (hypertension), benign Current Visit: Yes Status: Chronic Assessment and plan: BP within acceptable range continue current management hold antihypertensive for SBP<100 closely monitor BP (3) Osteomyelitis Current Visit: Yes Status: Acute Assessment and plan: ID and Podiatry on board and evaluation appreciated continue IV PCN (day 3, start date: 01/06/18) Pt will need 6 weeks of IV abx total PICC line in place social economist on board for discharge disposition wound care as per podiatry pain control Qualifiers: Osteomyelitis type: other acute Osteomyelitis location: foot Laterality: left Qualified Code(s): M86.172 - Other acute osteomyelitis, left ankle and foot (4) Acute on chronic kidney failure Current Visit: Yes Status: Chronic Assessment and plan: renal function appears to be at baseline continue to avoid nephrotoxins continue to closely monitor renal function Qualifiers: Acute renal failure type: unspecified Chronic kidney disease stage: stage 3 (moderate) Qualified Code(s): N17.9 - Acute kidney failure, unspecified; N18.3 - Chronic kidney disease, stage 3 (moderate); N18.3 - Chronic kidney disease, stage 3 (moderate) (5) Sepsis Current Visit: Yes Status: Resolved Assessment and plan: Resolved secondary to Osteomyelitis Qualifiers: Sepsis type: sepsis due to unspecified organism Qualified Code(s): A41.9 - Sepsis, unspecified organism (6) Obesity (BMI 30-39.9) Current Visit: Yes Status: Chronic - Time Spent With Patient Total time spent is greater than 50% in coordination of care (as documented) at patient's floor/unit and/or counseling patient: - Subjective Interval history: Patient seen and examined at bedside. Resting comfortably and denies any distress. Wound vac applied by podiatry on 01/06/18 social economist on board for discharge disposition discharge pending arrangement of ECF placement with IV abx (pt will need six weeks of IV abx) - Constitutional Vitals: Temp Pulse Resp BP Pulse Ox 98.0 F 90 16 112/75 95 01/08/18 10:56 01/08/18 10:56 01/08/18 10:56 01/08/18 10:56 01/08/18 10:56 General appearance: Present: A&O X 3, no acute distress, obese - Head Head exam: Present: atraumatic, normocephalic - Eye Eye exam: Present: conjuntiva pink, sclera anicteric - Respiratory Respiratory exam: Present: CTAB. Absent: respiratory distress, wheezes - Cardiovascular Cardiovascular exam: Present: RRR, +S1, +S2. Absent: diastolic murmur, gallop, rubs, systolic murmur - GI/Abdominal GI/Abdominal exam: Present: normal bowel sounds, soft, no peritoneal signs ( colostomy bag with normal color stool). Absent: tenderness - Extremities Exam Extremities exam: Present: warm, radial pulses palpable and symmetrical (left foot wound vac and dressing intact). Absent: calf tenderness Internal Medicine: Result - Labs CBC & Chem 7: 01/08/18 06:30 01/08/18 06:30 Labs: Short CBC 01/08/18 Range/Units 06:30 WBC 12.3 H (4.3-11.1) K/mcL Hgb 10.2 L (11.5-15.4) g/dL Hct 32.5 L (35.3-44.9) % Plt Count 328 (140-400) K/mcL Neutrophils # 8.5 (1.6-8.9) K/mcL BMP 01/08/18 06:30 Sodium 134 L Potassium 5.0 Chloride 101 Carbon Dioxide 25 BUN 25 H Creatinine 1.92 H Glucose 171 H Calcium 9.1 - VTE Documentation of Mechanical Device: Intermittent pneumatic compression device Consult Discharge Plan - Plan Additional Instructions: Please return to the ER if worsening of your current symptoms or development of increased swelling or new pain in your foot. If you develop fevers, chills, chest pain, or shortness of breath please return to the ER. Please take medication as prescribed: Please follow up with your PCP in 1-2 weeks Please follow up with Infectious Disease in 2-3 weeks Referrals: Ivette Delarosa CNP [Advanced Practice Nurse] - 01/22/18 9:20 am Elgin Hernandez CNP [Primary Care Provider] - (web request sent on 12/30/17)
[2018-01-08] MEDS: rOPINIRole 1 MG TABLET PO SCH (21:45)
[2018-01-09] MEDS: Penicillin G Potassium 2,000,000 UNIT in D5% in Water 100 ML IVPB SCH ×6 (02:22→22:18)
[2018-01-09] MEDS: *HR* Heparin 5,000 UNIT/ML VIAL SQ SCH ×3 (05:05→22:20)
[2018-01-09 05:31] LABS: Basophils # 0.1 K/mcL (0.0-0.2); Basophils % 0.7 %; Eosinophils # 0.2 K/mcL (0.0-0.6); Eosinophils % 1.3 %; Hemoglobin 9.9 g/dL (11.5-15.4); Immature Granulocytes % 1.8 % (0-4); Lymphocytes # 2.1 K/mcL (0.6-4.6); Lymphocytes % 17.8 %; Mean Corpuscular HGB Conc 31.9 g/dL (31.6-35.5); Mean Corpuscular Hemoglobin 27.1 pg (28.0-33.3); Mean Corpuscular Volume 84.9 fL (83.0-100.0); Mean Platelet Volume 9.3 fL (9.4-12.4); Monocytes # 0.8 K/mcL (0.0-1.3); Monocytes % 6.6 %; Neutrophils # 8.5 K/mcL (1.6-8.9); Platelet Count 336 K/mcL (140-400); Red Blood Count 3.65 M/mcL (3.82-4.97); Red Cell Distribution Width 13.2 % (11.5-14.5); Segmented Neutrophils % 71.8 %
[2018-01-09 05:45] LABS: Calcium 9.1 mg/dL (8.6-10.3); Magnesium 1.7 mg/dL (1.6-2.6); Phosphorous 5.9 mg/dL (2.7-4.5); Potassium 5.2 mEq/L (3.5-5.1)
[2018-01-09] MEDS: Insulin LISPRO 300 UNITS/3 ML VIAL SQ SCH ×4 (08:10→22:19)
[2018-01-09] MEDS: Aspirin 325 MG TABLET PO SCH (09:37)
[2018-01-09] MEDS: Gabapentin 300 MG CAPSULE PO SCH ×3 (09:37→22:17)
[2018-01-09] MEDS: *HR* OxyCODONE/APAP 10/325 TABLET PO PRN ×2 (09:38→17:54)
[2018-01-09] MEDS: Insulin NPH/REG 70/30 100 UNIT/ML (x5UNIT) SQ SCH ×2 (10:52→17:52)
--- NOTE | 2018-01-09 12:17 | Infectious Disease Progress No ---
Date of Encounter: 01/09/18 Time of Encounter: 12:15 - Assessment and Plan (1) Sepsis Current Visit: Yes Status: Resolved The patient had two SIRS criteria on admission. Likely secondary to left foot OM. Improved. WBC stable, but tachycardia has resolved. No blood cultures were drawn. Qualifiers: Sepsis type: sepsis due to unspecified organism Qualified Code(s): A41.9 - Sepsis, unspecified organism (2) Osteomyelitis Current Visit: Yes Status: Acute Location: Left foot. Causative organism unclear, but previous wound culture grew GBS. Intra-op cultures were negative. Secondary to non-healing foot ulcer sustained from the patient cutting calluses on the bottom of her foot. Left foot xray completed 12/27/17 showed subcutaneous gas throughout the soft tissues of the distal forefoot centered at the second digit compatible with underlying gas-forming infectious process and lucency of the base of the first proximal phalanx and findings suggestive of erosion of the second metatarsal head suspicious for osteomyelitis. Podiatry was consulted. Status post incision and drainage of the left foot first MTP joint with incision to bone cortex with bone biopsy of the first proximal phalanx and first metatarsal and incision and drainage of the left foot fifth MTP joint ulceration with debridement and irrigation 12/27/[address] Johnson. Operative note indicates that the bone was actually infected. Intraoperative cultures were obtained that were negative. Pathology showed findings consistent with acute osteomyelitis. The patient was taken back to the operating room on 12/31/2017 for partial resection of the first metatarsal of the left foot, partial resection of the proximal phalanx of the left foot, irrigation and debridement from 2 separate sites on the left foot, and bone biopsy of the left foot by Dr. johnson. Pathology showed findings consistent with acute ostium myelitis of the first metatarsal head of the left foot. Preop ESR was 96. CRP was 147. Wound care and activity restrictions per the podiatry team. Continue penicillin G 2 million units IV every 4 hours. Duration of treatment depends on the clinical picture, but likely 6 weeks of IV antibiotics will be required. Monitor renal function and dose adjust antibiotics. director of clinical services consulted and assisting with discharge management. Midline his been placed in preparation for discharge. We will need weekly CBC, BUN/creatinine, ESR, and CRP. We will need weekly IV care per protocol. Follow-up with ID 01/22/18 at 0920. Qualifiers: Osteomyelitis type: other acute Osteomyelitis location: foot Laterality: left Qualified Code(s): M86.172 - Other acute osteomyelitis, left ankle and foot (3) Acute on chronic kidney failure Current Visit: Yes Status: Chronic Creatinine stable. Her baseline is around 1.8 Management per primary team. Renally dose antibiotics and avoid nephrotoxins. Qualifiers: Acute renal failure type: unspecified Chronic kidney disease stage: stage 3 (moderate) Qualified Code(s): N17.9 - Acute kidney failure, unspecified; N18.3 - Chronic kidney disease, stage 3 (moderate); N18.3 - Chronic kidney disease, stage 3 (moderate) (4) Uncontrolled diabetes mellitus Current Visit: Yes Status: Chronic History of uncontrolled type II diabetes Last A1 C from 12/13/17 was 13.2%. Recommend aggressive glucose management and control to promote wound healing and prevent reinfection. Qualifiers: Diabetes mellitus type: type 2 Diabetes mellitus medical terminologist insulin use: with medical terminologist use Diabetes mellitus complication status: with circulatory complication Diabetes mellitus complication detail: with peripheral angiopathy without gangrene Qualified Code(s): E11.51 - Type 2 diabetes mellitus with diabetic peripheral angiopathy without gangrene; E11.65 - Type 2 diabetes mellitus with hyperglycemia; E11.65 - Type 2 diabetes mellitus with hyperglycemia; E11.65 - Type 2 diabetes mellitus with hyperglycemia; E11.65 - Type 2 diabetes mellitus with hyperglycemia; Z79.4 - lobsterman (current) use of insulin; Z79.4 - USP (current) use of insulin; Z79.4 - lobsterman (current ) use of insulin; Z79.4 - lobsterman (current) use of insulin (5) HTN (hypertension), benign Current Visit: Yes Status: Chronic (6) Obesity (BMI 30-39.9) Current Visit: Yes Status: Chronic - Subjective Interval history: Patient seen and examined. No acute events noted overnight. Patient reports intermittent pain in the left foot. She denies any fevers or chills or rigors. She denies any chest pain, shortness of breath, or cough. She denies any nausea or vomiting. She reports adequate output from her colostomy and states not any more than normal. She denies any abdominal pain, urinary complaints, or appetite changes. She denies any oral thrush or new skin lesions. Infect Dis PN-Objective Data - Labs CBC & Chem 7: 01/09/18 05:13 01/09/18 05:13 Labs: Laboratory Results - last 24 hr 01/07/18 01/08/18 01/08/18 19:43 12:07 16:47 WBC RBC Hgb Hct MCV MCH MCHC RDW Plt Count MPV Immature Gran % Seg Neutrophils % Lymphocytes % Monocytes % Eosinophils % Basophils % Neutrophils # Lymphocytes # Monocytes # Eosinophils # Basophils # Sodium Potassium Chloride Carbon Dioxide BUN Creatinine Est GFR ( Amer) Est GFR (Non-Af Amer) BUN/Creatinine Ratio Glucose POC Glucose 164 H 243 H 106 H Calculated Osmolality Calcium Phosphorus Magnesium 01/08/18 01/09/18 01/09/18 21:22 05:13 05:13 WBC 11.8 H RBC 3.65 L Hgb 9.9 L Hct 31.0 L MCV 84.9 MCH 27.1 L MCHC 31.9 RDW 13.2 Plt Count 336 MPV 9.3 L Immature Gran % 1.8 Seg Neutrophils % 71.8 Lymphocytes % 17.8 Monocytes % 6.6 Eosinophils % 1.3 Basophils % 0.7 Neutrophils # 8.5 Lymphocytes # 2.1 Monocytes # 0.8 Eosinophils # 0.2 Basophils # 0.1 Sodium 133 L Potassium 5.2 H Chloride 101 Carbon Dioxide 25 BUN 28 H Creatinine 1.87 H Est GFR ( Amer) 33 L Est GFR (Non-Af Amer) 27 L BUN/Creatinine Ratio 15 Glucose 168 H POC Glucose 186 H Calculated Osmolality 285 Calcium 9.1 Phosphorus 5.9 H Magnesium 1.7 Cultures: Cultures 12/31/17 18:45 Anaerobic Culture - Final Left Foot No anaerobes were recovered. 12/31/17 18:45 Wound Culture - Final Left Foot No pathogens isolated. 12/27/17 19:00 Anaerobic Culture - Final Left Foot Anaerobic conditions were compromised due to failure of the anaerobic pouch to seal correctly, therefore, sample cannot be assessed for anaerobic organisms. 12/27/17 19:00 Wound Culture - Final Left Foot No pathogens isolated. Exam - Constitutional Vitals: Temp Pulse Resp BP Pulse Ox 97.5 F L 82 96 131/75 94 01/09/18 11:26 01/09/18 11:26 01/09/18 11:26 01/09/18 11:26 01/09/18 10:50 General appearance: cooperative, no acute distress, obese - Head Head exam: Present: atraumatic, normal inspection, normocephalic - Eye Eye exam: Present: EOMI, normal appearance, PERRL Pupils: Present: normal accommodation - ENT ENT exam: Present: mucous membranes moist - Neck Neck exam: Present: normal inspection - Respiratory Respiratory exam: Present: CTAB. Absent: rales, respiratory distress, rhonchi, wheezes - Cardiovascular Cardiovascular exam: Present: RRR, +S1, +S2 - GI/Abdominal GI/Abdominal exam: Present: distended (obese), normal bowel sounds, soft. Absent: tenderness Additional comments: Colostomy noted to the right abdomen with ostomy bag intact with small amount of brown liquid stool noted in the collection bag. - Extremities Exam Extremities exam: Present: pedal edema (Trace LLE). Absent: joint swelling, tenderness Additional comments: Left foot dressing with wound VAC dressing C/D/I. Scant serosanguinous drainage noted in the canister. - Neurological Exam Neurological exam: Present: alert, oriented X3, no focal deficits - Psychiatric Psychiatric exam: Present: normal affect, normal mood - Skin Skin exam: Present: dry, intact, normal color, warm - Additional findings Additional findings: Powerglide noted to the LUE with transparent dressing C/D/I. - VTE Documentation of Mechanical Device: Intermittent pneumatic compression device Consult Discharge Plan - Plan Additional Instructions: Please return to the ER if worsening of your current symptoms or development of increased swelling or new pain in your foot. If you develop fevers, chills, chest pain, or shortness of breath please return to the ER. Please take medication as prescribed: Please follow up with your PCP in 1-2 weeks Please follow up with Infectious Disease in 2-3 weeks Referrals: Ivette Delarosa CNP [Advanced Practice Nurse] - 01/22/18 9:20 am Elgin Hernandez CNP [Primary Care Provider] - (web request sent on 12/30/17)
[2018-01-09] MEDS: Neosporin OINT 15 GM TUBE TP SCH (12:35)
--- NOTE | 2018-01-09 14:40 | Internal Med Progress Note ---
Date of Encounter: 01/09/18 Time of Encounter: 13:56 - Assessment and plan (1) Uncontrolled diabetes mellitus Current Visit: Yes Status: Chronic Assessment and plan: BG within acceptable range continue sliding scale insulin algorithm monitor FS and BG ADA diet Qualifiers: Diabetes mellitus type: type 2 Diabetes mellitus half-way insulin use: with half-way use Diabetes mellitus complication status: with circulatory complication Diabetes mellitus complication detail: with peripheral angiopathy without gangrene Qualified Code(s): E11.51 - Type 2 diabetes mellitus with diabetic peripheral angiopathy without gangrene; E11.65 - Type 2 diabetes mellitus with hyperglycemia; E11.65 - Type 2 diabetes mellitus with hyperglycemia; E11.65 - Type 2 diabetes mellitus with hyperglycemia; E11.65 - Type 2 diabetes mellitus with hyperglycemia; Z79.4 - roasterman (current) use of insulin; Z79.4 - roasterman (current) use of insulin; Z79.4 - longterm (current ) use of insulin; Z79.4 - longterm (current) use of insulin (2) HTN (hypertension), benign Current Visit: Yes Status: Chronic Assessment and plan: BP within acceptable range continue current management hold antihypertensive for SBP<100 closely monitor BP (3) Osteomyelitis Current Visit: Yes Status: Acute Assessment and plan: ID and Podiatry on board and evaluation appreciated continue IV PCN (day 4, start date: 01/06/18) Pt will need 6 weeks of IV abx total PICC line in place social scientist on board for discharge disposition wound care as per podiatry pain control Qualifiers: Osteomyelitis type: other acute Osteomyelitis location: foot Laterality: left Qualified Code(s): M86.172 - Other acute osteomyelitis, left ankle and foot (4) Acute on chronic kidney failure Current Visit: Yes Status: Chronic Assessment and plan: renal function appears to be at baseline continue to avoid nephrotoxins continue to closely monitor renal function Qualifiers: Acute renal failure type: unspecified Chronic kidney disease stage: stage 3 (moderate) Qualified Code(s): N17.9 - Acute kidney failure, unspecified; N18.3 - Chronic kidney disease, stage 3 (moderate); N18.3 - Chronic kidney disease, stage 3 (moderate) (5) Sepsis Current Visit: Yes Status: Resolved Assessment and plan: Resolved secondary to Osteomyelitis Qualifiers: Sepsis type: sepsis due to unspecified organism Qualified Code(s): A41.9 - Sepsis, unspecified organism (6) Obesity (BMI 30-39.9) Current Visit: Yes Status: Chronic - Time Spent With Patient Total time spent is greater than 50% in coordination of care (as documented) at patient's floor/unit and/or counseling patient: - Subjective Interval history: Patient seen and examined at bedside. Resting comfortably and denies any distress. Wound vac applied by podiatry on 01/06/18 no overnight issues reported social scientist on board for discharge disposition discharge pending arrangement of ECF placement with IV abx and wound vac (pt will need six weeks of IV abx) - Constitutional Vitals: Temp Pulse Resp BP Pulse Ox 97.5 F L 82 96 131/75 94 01/09/18 11:26 01/09/18 11:26 01/09/18 11:26 01/09/18 11:01/09/18 10:50 General appearance: Present: A&O X 3, no acute distress, obese - Head Head exam: Present: atraumatic, normocephalic - Eye Eye exam: Present: conjuntiva pink, sclera anicteric - Respiratory Respiratory exam: Present: CTAB. Absent: respiratory distress, wheezes - Cardiovascular Cardiovascular exam: Present: RRR, +S1, +S2. Absent: diastolic murmur, gallop, rubs, systolic murmur - GI/Abdominal GI/Abdominal exam: Present: normal bowel sounds, soft, no peritoneal signs. Absent: distended, tenderness - Extremities Exam Extremities exam: Present: warm, radial pulses palpable and symmetrical. Absent : calf tenderness (left foot wound vac and dressing intact) - Neurological Exam Neurological exam: Present: oriented X3 Internal Medicine: Result - Labs CBC & Chem 7: 01/09/18 05:13 01/09/18 05:13 Labs: Short CBC 01/09/18 Range/Units 05:13 WBC 11.8 H (4.3-11.1) K/mcL Hgb 9.9 L (11.5-15.4) g/dL Hct 31.0 L (35.3-44.9) % Plt Count 336 (140-400) K/mcL Neutrophils # 8.5 (1.6-8.9) K/mcL BMP 01/09/18 05:13 Sodium 133 L Potassium 5.2 H Chloride 101 Carbon Dioxide 25 BUN 28 H Creatinine 1.87 H Glucose 168 H Calcium 9.1 - VTE Documentation of Mechanical Device: Intermittent pneumatic compression device Consult Discharge Plan - Plan Additional Instructions: Please return to the ER if worsening of your current symptoms or development of increased swelling or new pain in your foot. If you develop fevers, chills, chest pain, or shortness of breath please return to the ER. Please take medication as prescribed: Please follow up with your PCP in 1-2 weeks Please follow up with Infectious Disease in 2-3 weeks Referrals: Ivette Delarosa CNP [Advanced Practice Nurse] - 01/22/18 9:20 am Elgin Hernandez CNP [Primary Care Provider] - (web request sent on 12/30/17)
[2018-01-09] MEDS: rOPINIRole 1 MG TABLET PO SCH (22:18)
[2018-01-10] MEDS: Penicillin G Potassium 2,000,000 UNIT in D5% in Water 100 ML IVPB SCH ×5 (02:04→17:47)
[2018-01-10 04:47] LABS: Basophils # 0.1 K/mcL (0.0-0.2); Basophils % 0.7 %; Eosinophils # 0.2 K/mcL (0.0-0.6); Eosinophils % 1.4 %; Hematocrit 32.3 % (35.3-44.9); Hemoglobin 10.3 g/dL (11.5-15.4); Immature Granulocytes % 1.9 % (0-4); Lymphocytes # 2.4 K/mcL (0.6-4.6); Lymphocytes % 20.1 %; Mean Corpuscular HGB Conc 31.9 g/dL (31.6-35.5); Mean Corpuscular Hemoglobin 27.4 pg (28.0-33.3); Mean Corpuscular Volume 85.9 fL (83.0-100.0); Mean Platelet Volume 9.6 fL (9.4-12.4); Monocytes # 0.8 K/mcL (0.0-1.3); Monocytes % 6.7 %; Neutrophils # 8.2 K/mcL (1.6-8.9); Platelet Count 383 K/mcL (140-400); Red Blood Count 3.76 M/mcL (3.82-4.97); Red Cell Distribution Width 13.3 % (11.5-14.5); Segmented Neutrophils % 69.2 %
[2018-01-10 05:06] LABS: Calcium 9.1 mg/dL (8.6-10.3); Magnesium 1.8 mg/dL (1.6-2.6); Potassium 5.1 mEq/L (3.5-5.1)
[2018-01-10] MEDS: *HR* Heparin 5,000 UNIT/ML VIAL SQ SCH ×2 (05:38→15:46)
[2018-01-10] MEDS: Insulin LISPRO 300 UNITS/3 ML VIAL SQ SCH ×3 (07:49→17:08)
[2018-01-10] MEDS: Neosporin OINT 15 GM TUBE TP SCH (08:29)
[2018-01-10] MEDS: Aspirin 325 MG TABLET PO SCH (08:37)
[2018-01-10] MEDS: Gabapentin 300 MG CAPSULE PO SCH ×2 (08:37→15:46)
[2018-01-10] MEDS: *HR* OxyCODONE/APAP 10/325 TABLET PO PRN ×2 (08:37→15:58)
--- NOTE | 2018-01-10 08:37 | Podiatry Progress Note ---
Date of Encounter: 01/09/18 Time of Encounter: 12:30 - Assessment and Plan (1) Uncontrolled diabetes mellitus Current Visit: Yes Status: Chronic Qualifiers: Diabetes mellitus type: type 2 Diabetes mellitus alf insulin use: with ad terminal makeup operator use Diabetes mellitus complication status: with circulatory complication Diabetes mellitus complication detail: with peripheral angiopathy without gangrene Qualified Code(s): E11.51 - Type 2 diabetes mellitus with diabetic peripheral angiopathy without gangrene; E11.65 - Type 2 diabetes mellitus with hyperglycemia; E11.65 - Type 2 diabetes mellitus with hyperglycemia; E11.65 - Type 2 diabetes mellitus with hyperglycemia; E11.65 - Type 2 diabetes mellitus with hyperglycemia; 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; 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; Z79.4 - residential (current ) use of insulin; Z79.4 - residential (current) use of insulin (2) CKD (chronic kidney disease) stage 3, GFR 30-59 ml/min Current Visit: Yes Status: Acute (3) Osteomyelitis Current Visit: Yes Status: Acute S/p Incision and drainage of left foot first metatarsal phalangeal joint with incision to bone cortex with bone biopsy of first proximal phalanx and first metatarsal. Incision and drainage of the left foot fifth metatarsal phalangeal joint ulceration with debridement and irrigation by Dr. Johnson on 12/27/17. S/p Partial resection of first metatarsal, left foot. Partial resection of proximal phalanx, left foot. Irrigation and debridement from 2 separate sites on the left foot. Bone biopsy, left foot on 12/31/[address] Johnson. Wound vac intact. Microbiology 12/27/17 19:00 Left Foot Anaerobic Culture - Final Anaerobic conditions were compromised due to failure of the anaerobic pouch to seal correctly, therefore, sample cannot be assessed for anaerobic organisms. 12/27/17 19:00 Left Foot Wound Culture - Final No pathogens isolated. Plan: Wound Vac to be changed every --. Wound vac paperwork has been completed. Small black simplace wound vac sponge,connected to 125mmhg low continuous suction. All surrounding to be prepped with AllKare barrier prep, then apply drape. After wound vac applied, betadine to be applied to the 1st webspace of toes #1, #2 left foot with 4x4 dry sterile gauze and kerlix. Antibiotic therapy per Infectious Disease - IV Penicillin x 6 weeks. The patient will need to minimize weightbearing to the left foot to allow the incision site/ulceration site to heal. Post op shoe ordered. PT/OT evaluated patient and recommended an ECF/SNF. Will continue to follow patient closely. Patient will need a 1 week f/u in Podiatry with Dr. Johnson. Qualifiers: Osteomyelitis type: other acute Osteomyelitis location: foot Laterality: left Qualified Code(s): M86.172 - Other acute osteomyelitis, left ankle and foot Subjective Principal diagnosis: Left osteomyelitis with infection and gas gangrene Interval history: Patient is s/p incision and drainage of left foot first metatarsal phalangeal joint with incision to bone cortex with bone biopsy of first proximal phalanx and first metatarsal. Incision and drainage of the left foot fifth metatarsal phalangeal joint ulceration with debridement and irrigation by Dr. Johnson on . Sessions took patient back to OR on 12/31/17 for a partial resection of first metatarsal, left foot. Partial resection of proximal phalanx , left foot. Irrigation and debridement from 2 separate sites on the left foot. Bone biopsy, left foot. Patient is lying in bed with dressing intact to the left foot with wound vac. 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 No c/o fever or chills overnight. Objective - Vital Signs Vital Signs: Vital Signs Temp Pulse Resp BP Pulse Ox 01/10/18 08:22 97.7 F 86 16 110/71 01/10/18 07:12 97.7 F 86 16 110/71 94 01/10/18 03:19 97.9 F 101 18 104/60 93 01/09/18 23:28 97.5 F L 104 18 110/74 96 01/09/18 19:36 97.8 F 98 18 122/71 95 01/09/18 15:28 97.8 F 84 16 114/66 94 01/09/18 11:26 97.5 F L 82 96 131/75 01/09/18 10:50 97.3 F L 88 16 108/68 94 01/09/18 09:05 98 F 83 16 135/78 93 Intake and Output 01/09/18 01/10/18 01/10/18 23:59 07:59 15:59 Intake Total 800 / 800 100 / 100 Output Total 2200 / 2200 1250 / 1250 Balance -1400 / -1400 -1150 / -1150 Intake: IV Fluids 200 / 200 100 / 100 Pfizerpen 2,000,000 UNIT In 200 / 200 100 / 100 Dextrose 5% 100 ML @ 100 mls/hr IVPB Q4H [facility] Rx#:[id number] Oral 600 / 600 Output: Urine 1350 / 1350 400 / 400 Stool 850 / 850 850 / 850 Other: Meal Dinner Percent of Meal Consumed 80% # Voids 1 Weight 104.5 kg 104.5 kg Blood Glucose* 187 135 Patient Weight 01/10/18 23:59 Weight 104.5 kg - Exam Exam: General appearance: alert awake oriented X 3. Calm and pleasant, no acute distress.. Vascular: Pedal pulses +1/4 DP/PT , No evidence of cyanosis, pallor or rubor, Edema graded at 1+/4, Skin Temperature warm, No calf pain with manual compression. capillary refill time is immediate to digits. Neurologic: Sensation intact with light touch to foot. . Postop Exam: S/P Surgical wound to the dorsum of the left foot at the base of the proximal phalanx of toe #2 with small black simplace wound vac sponge light periwound erythema, no odor. Surgical wound to the plantar aspect of the left foot at the 1st metatarsal head with small back simpalce wound vac spone no odor, light periwound erythema. Tenderness upon palpation the plantar aspect. Foot is edematous. 25 mls of serous drainage observed to canister. - Lab Result Diagrams: 01/10/18 04:06 01/10/18 04:06 Labs: Abnormal lab results WBC 11.9 K/mcL (4.3-11.1) H 01/10/18 04:06 RBC 3.76 M/mcL (3.82-4.97) L 01/10/18 04:06 Hgb 10.3 g/dL (11.5-15.4) L 01/10/18 04:06 Hct 32.3 % (35.3-44.9) L 01/10/18 04:06 MCH 27.4 pg (28.0-33.3) L 01/10/18 04:06 ESR 96 mm/hr (0-15) H 01/07/18 06:02 Sodium 133 mEq/L (136-145) L 01/10/18 04:06 BUN 31 mg/dL (8-23) H 01/10/18 04:06 Creatinine 2.17 mg/dL (0.60-1.20) H 01/10/18 04:06 Est GFR ( Amer) 28 (> 60) L 01/10/18 04:06 Est GFR (Non-Af Amer) 23 (> 60) L 01/10/18 04:06 Glucose 119 mg/dL (70-105) H 01/10/18 04:06 POC Glucose 135 mg/dL (70-99) H 01/10/18 06:56 Phosphorus 6.0 mg/dL (2.7-4.5) H 01/10/18 04:06 Direct Bilirubin 0.3 mg/dL (0.0-0.2) H 12/27/17 18:21 AST 7 Units/L (13-39) L 12/27/17 18:21 C-Reactive Protein 77 mg/L (Less than 10) H 01/07/18 06:02 Albumin 3.1 g/dL (3.5-5.7) L 12/27/17 18:21 Globulin 4.3 g/dL (2.4-3.5) H 12/27/17 18:21 Albumin/Globulin Ratio 0.7 (1.1-2.2) L 12/27/17 18:21 Vancomycin Trough 30 mcg/mL (5-10) H 12/30/17 03:45 - VTE Documentation of Mechanical Device: Intermittent pneumatic compression device Consult Discharge Plan - Plan Additional Instructions: Please return to the ER if worsening of your current symptoms or development of increased swelling or new pain in your foot. If you develop fevers, chills, chest pain, or shortness of breath please return to the ER. Please take medication as prescribed: Please follow up with your PCP in 1-2 weeks Please follow up with Infectious Disease in 2-3 weeks Referrals: Ivette Delarosa CNP [Advanced Practice Nurse] - 01/22/18 9:20 am Elgin Hernandez CNP [Primary Care Provider] - (web request sent on 12/30/17)
--- NOTE | 2018-01-10 09:59 | Infectious Disease Progress No ---
Date of Encounter: 01/10/18 Time of Encounter: 09:57 - Assessment and Plan (1) Sepsis Current Visit: Yes Status: Resolved The patient had two SIRS criteria on admission. Likely secondary to left foot OM. Improved. WBC stable, but tachycardia has resolved. No blood cultures were drawn. Qualifiers: Sepsis type: sepsis due to unspecified organism Qualified Code(s): A41.9 - Sepsis, unspecified organism (2) Osteomyelitis Current Visit: Yes Status: Acute Location: Left foot. Causative organism unclear, but previous wound culture grew GBS. Intra-op cultures were negative. Secondary to non-healing foot ulcer sustained from the patient cutting calluses on the bottom of her foot. Left foot xray completed 12/27/17 showed subcutaneous gas throughout the soft tissues of the distal forefoot centered at the second digit compatible with underlying gas-forming infectious process and lucency of the base of the first proximal phalanx and findings suggestive of erosion of the second metatarsal head suspicious for osteomyelitis. Podiatry was consulted. Status post incision and drainage of the left foot first MTP joint with incision to bone cortex with bone biopsy of the first proximal phalanx and first metatarsal and incision and drainage of the left foot fifth MTP joint ulceration with debridement and irrigation 12/27/[address] Johnson. Operative note indicates that the bone was actually infected. Intraoperative cultures were obtained that were negative. Pathology showed findings consistent with acute osteomyelitis. The patient was taken back to the operating room on 12/31/2017 for partial resection of the first metatarsal of the left foot, partial resection of the proximal phalanx of the left foot, irrigation and debridement from 2 separate sites on the left foot, and bone biopsy of the left foot by Dr. johnson. Pathology showed findings consistent with acute ostium myelitis of the first metatarsal head of the left foot. Preop ESR was 96. CRP was 147. Wound care and activity restrictions per the podiatry team. Continue penicillin G 2 million units IV every 4 hours. Duration of treatment depends on the clinical picture, but likely 6 weeks of IV antibiotics will be required. Monitor renal function and dose adjust antibiotics. tax services professional consulted and assisting with discharge management. Midline his been placed in preparation for discharge. We will need weekly CBC, BUN/creatinine, ESR, and CRP. We will need weekly IV care per protocol. Follow-up with ID 01/21/18 at 0900. Qualifiers: Osteomyelitis type: other acute Osteomyelitis location: foot Laterality: left Qualified Code(s): M86.172 - Other acute osteomyelitis, left ankle and foot (3) Acute on chronic kidney failure Current Visit: Yes Status: Chronic Creatinine stable. Her baseline is around 1.8. Management per primary team. Renally dose antibiotics and avoid nephrotoxins. Qualifiers: Acute renal failure type: unspecified Chronic kidney disease stage: stage 3 (moderate) Qualified Code(s): N17.9 - Acute kidney failure, unspecified; N18.3 - Chronic kidney disease, stage 3 (moderate); N18.3 - Chronic kidney disease, stage 3 (moderate) (4) Uncontrolled diabetes mellitus Current Visit: Yes Status: Chronic History of uncontrolled type II diabetes Last A1 C from 12/13/17 was 13.2%. Recommend aggressive glucose management and control to promote wound healing and prevent reinfection. Qualifiers: Diabetes mellitus type: type 2 Diabetes mellitus terminal block assembler insulin use: with terminal block assembler use Diabetes mellitus complication status: with circulatory complication Diabetes mellitus complication detail: with peripheral angiopathy without gangrene Qualified Code(s): E11.51 - Type 2 diabetes mellitus with diabetic peripheral angiopathy without gangrene; E11.65 - Type 2 diabetes mellitus with hyperglycemia; E11.65 - Type 2 diabetes mellitus with hyperglycemia; E11.65 - Type 2 diabetes mellitus with hyperglycemia; E11.65 - Type 2 diabetes mellitus with hyperglycemia; Z79.4 - [facility] (current) use of insulin; Z79.4 - [facility] (current) use of insulin; Z79.4 - [facility] (current ) use of insulin; Z79.4 - [facility] (current) use of insulin (5) HTN (hypertension), benign Current Visit: Yes Status: Chronic (6) Obesity (BMI 30-39.9) Current Visit: Yes Status: Chronic - Subjective Interval history: Patient seen and examined. No acute events noted overnight. Patient reports intermittent pain in the left foot, but states she recently took a pain pill and it feels better. She denies any fevers or chills or rigors. She denies any chest pain, shortness of breath, or cough. She denies any nausea or vomiting. She reports adequate output from her colostomy and states not any more than normal. She denies any abdominal pain, urinary complaints, or appetite changes. She denies any oral thrush or new skin lesions. She is going to [facility] later today. Infect Dis PN-Objective Data - Labs CBC & Chem 7: 01/10/18 04:06 01/10/18 04:06 Labs: Laboratory Results - last 24 hr 01/08/18 01/09/18 01/09/18 12:07 06:49 10:44 WBC RBC Hgb Hct MCV MCH MCHC RDW Plt Count MPV Immature Gran % Seg Neutrophils % Lymphocytes % Monocytes % Eosinophils % Basophils % Neutrophils # Lymphocytes # Monocytes # Eosinophils # Basophils # Sodium Potassium Chloride Carbon Dioxide BUN Creatinine Est GFR ( Amer) Est GFR (Non-Af Amer) BUN/Creatinine Ratio Glucose POC Glucose 243 H 164 H 222 H Calculated Osmolality Calcium Phosphorus Magnesium 01/09/18 01/09/18 01/09/18 11:22 15:14 19:40 WBC RBC Hgb Hct MCV MCH MCHC RDW Plt Count MPV Immature Gran % Seg Neutrophils % Lymphocytes % Monocytes % Eosinophils % Basophils % Neutrophils # Lymphocytes # Monocytes # Eosinophils # Basophils # Sodium Potassium Chloride Carbon Dioxide BUN Creatinine Est GFR ( Amer) Est GFR (Non-Af Amer) BUN/Creatinine Ratio Glucose POC Glucose 242 H 233 H 187 H Calculated Osmolality Calcium Phosphorus Magnesium 01/10/18 01/10/18 01/10/18 04:06 04:06 06:56 WBC 11.9 H RBC 3.76 L Hgb 10.3 L Hct 32.3 L MCV 85.9 MCH 27.4 L MCHC 31.9 RDW 13.3 Plt Count 383 MPV 9.6 Immature Gran % 1.9 Seg Neutrophils % 69.2 Lymphocytes % 20.1 Monocytes % 6.7 Eosinophils % 1.4 Basophils % 0.7 Neutrophils # 8.2 Lymphocytes # 2.4 Monocytes # 0.8 Eosinophils # 0.2 Basophils # 0.1 Sodium 133 L Potassium 5.1 Chloride 99 Carbon Dioxide 25 BUN 31 H Creatinine 2.17 H Est GFR ( Amer) 28 L Est GFR (Non-Af Amer) 23 L BUN/Creatinine Ratio 14 Glucose 119 H POC Glucose 135 H Calculated Osmolality 284 Calcium 9.1 Phosphorus 6.0 H Magnesium 1.8 Cultures: Cultures 12/31/17 18:45 Anaerobic Culture - Final Left Foot No anaerobes were recovered. 12/31/17 18:45 Wound Culture - Final Left Foot No pathogens isolated. 12/27/17 19:00 Anaerobic Culture - Final Left Foot Anaerobic conditions were compromised due to failure of the anaerobic pouch to seal correctly, therefore, sample cannot be assessed for anaerobic organisms. 12/27/17 19:00 Wound Culture - Final Left Foot No pathogens isolated. Exam - Constitutional Vitals: Temp Pulse Resp BP Pulse Ox 97.7 F 86 16 110/71 94 01/10/18 08:22 01/10/18 08:22 01/10/18 08:22 01/10/18 08:01/10/18 07:12 General appearance: cooperative, no acute distress, obese - Head Head exam: Present: atraumatic, normal inspection, normocephalic - Eye Eye exam: Present: EOMI, normal appearance, PERRL Pupils: Present: normal accommodation - ENT ENT exam: Present: mucous membranes moist - Neck Neck exam: Present: normal inspection - Respiratory Respiratory exam: Present: CTAB. Absent: rales, respiratory distress, rhonchi, wheezes - Cardiovascular Cardiovascular exam: Present: RRR, +S1, +S2 - GI/Abdominal GI/Abdominal exam: Present: distended (obese), normal bowel sounds, soft. Absent: tenderness Additional comments: Colostomy noted to the right abdomen with large amount of gas and small amount of brown liquid stool noted in the collection bag. - Extremities Exam Extremities exam: Present: pedal edema (Trace LLE). Absent: joint swelling, tenderness Additional comments: Left foot wound VAC dressing C/D/I with overlying guaze intact. - Neurological Exam Neurological exam: Present: alert, oriented X3, no focal deficits - Psychiatric Psychiatric exam: Present: normal affect, normal mood - Skin Skin exam: Present: dry, intact, normal color, warm - VTE Documentation of Mechanical Device: Intermittent pneumatic compression device Consult Discharge Plan - Plan Additional Instructions: Please return to the ER if worsening of your current symptoms or development of increased swelling or new pain in your foot. If you develop fevers, chills, chest pain, or shortness of breath please return to the ER. Please take medication as prescribed: Please follow up with your PCP in 1-2 weeks Please follow up with Infectious Disease in 2-3 weeks Referrals: Elgin Hernandez CNP [Primary Care Provider] - (web request sent on 12/30/17) Ivette Delarosa CNP [Advanced Practice Nurse] - 01/21/18 9:00 am
[2018-01-10] MEDS: Insulin NPH/REG 70/30 100 UNIT/ML (x5UNIT) SQ SCH ×2 (10:34→17:09)
[2018-01-10 11:02] VITALS: BP 137/81
--- NOTE | 2018-01-10 14:17 | Discharge Summary ---
- NOTES TO OUTPATIENT PROVIDER Notes to Outpatient Provider: Patient is to be on abx for 6 weeks total. Finish on 02/06. She needs weekly ESR/CRP/BUN/CR/CBC Date of Encounter: 01/10/18 Time of Encounter: 14:16 - Discharge Diagnosis (1) Uncontrolled diabetes mellitus Priority: Secondary Status: Chronic Qualifiers: Diabetes mellitus type: type 2 Diabetes mellitus dedicated intermodal truck driver insulin use: with dedicated intermodal truck driver use Diabetes mellitus complication status: with circulatory complication Diabetes mellitus complication detail: with peripheral angiopathy without gangrene Qualified Code(s): E11.51 - Type 2 diabetes mellitus with diabetic peripheral angiopathy without gangrene; E11.65 - Type 2 diabetes mellitus with hyperglycemia; E11.65 - Type 2 diabetes mellitus with hyperglycemia; E11.65 - Type 2 diabetes mellitus with hyperglycemia; E11.65 - Type 2 diabetes mellitus with hyperglycemia; Z79.4 - residential (current) use of insulin; Z79.4 - residential (current) use of insulin; Z79.4 - termite control technician (current ) use of insulin; Z79.4 - termite control technician (current) use of insulin (2) HTN (hypertension), benign Priority: Secondary Status: Chronic (3) Osteomyelitis Priority: Primary Status: Acute Qualifiers: Osteomyelitis type: other acute Osteomyelitis location: foot Laterality: left Qualified Code(s): M86.172 - Other acute osteomyelitis, left ankle and foot (4) Acute on chronic kidney failure Priority: Primary Status: Chronic Qualifiers: Acute renal failure type: unspecified Chronic kidney disease stage: stage 3 (moderate) Qualified Code(s): N17.9 - Acute kidney failure, unspecified; N18.3 - Chronic kidney disease, stage 3 (moderate); N18.3 - Chronic kidney disease, stage 3 (moderate) (5) Sepsis Priority: Primary Status: Resolved Qualifiers: Sepsis type: sepsis due to unspecified organism Qualified Code(s): A41.9 - Sepsis, unspecified organism (6) Obesity (BMI 30-39.9) Priority: Secondary Status: Chronic Hospital course: Ms. Vallejo is a 62 year old female with prior medical history of COPD, diabetes (uncontrolled), CKD stage III, hypothyroid, and hypertension who presented to [facility] on 12/27[facility]17 due to increased left foot pain and swelling. She stated that she had picked a callus on her foot, but noticed gradually worsening swelling, erythema, and pain. Upon presentation she was found to have subcutaneous gas and findings concerning for osteomyelitis on x-ray. She was seen by podiatry and incision and drainage was performed. Biopsy confirmed osteomyelitis. She was started on IV vancomycin and Zosyn until culture revealed group B streptococcus with repeat cultures were negative for any pathogens. ID followed along and eventually put on IV penicillin. She was discharged to finish 6 weeks of that. Abx to finish 02/06. Will follow up with ID - Time Spent with Patient Total time spent providing and/or coordinating discharge services: Greater than 30 minutes - Discharge Medications Prescriptions: Penicillin G Potassium [Pfizerpen] 2,000,000 unit IVPB Q4HR #162 vial OxyCODONE/APAP 10/325 [Percocet 10/325 MG] 1 each PO Q6HR PRN 2 Days #8 tablet PRN Reason: Moderate to Severe Pain Home Medications: Amitriptyline [Elavil] 50 mg PO HS 12/27/17 [History] Aspirin 325 mg PO DAILY 12/27/17 [History] Calcitriol [Rocaltrol] 0.25 mcg PO DAILY 12/27/17 [History] Gabapentin [Neurontin] 300 mg PO TID 12/27/17 [History] Ginseng 250 mg PO DAILY 12/27/17 [History] Insulin NPH Hum/Reg Insulin Hm [Novolin 70-30 100 Unit/ml Vial] 35 unit SQ BID 12/27/17 [History] Lisinopril [Zestril] 5 mg PO DAILY 12/27/17 [History] Ranitidine HCl [Zantac] 150 mg PO DAILY 12/27/17 [History] Sertraline [Zoloft] 100 mg PO BID 12/27/17 [History] OxyCODONE/APAP 10/325 [Percocet 10/325 MG] 1 each PO Q6HR PRN 2 Days #8 tablet 01/10/18 [Rx] Penicillin G Potassium [Pfizerpen] 2,000,000 unit IVPB Q4HR #162 vial 01/10/18 [ Rx] Allergies/Adverse Reactions: 3 Allergy/AdvReac Type Severity Reaction Status Date / Time ibuprofen [From Motrin] Allergy Rash Verified 12/27/17 13:25 Date of admission: 12/27/17 19:36 Primary care physician: Elgin Hernandez CNP Consults: 12/27/17 17:40 Consult to Nutrition [CONS] Routine Comment: Consulting Provider: NUTRITION Reason for Dietary Consult: MST Score Consult to Resin Filterer [CONS] Routine Reason for SW Consult: d/c planning and advance directives 12/30/17 10:36 Consult to Infectious Diseases [CONS] Routine Consulting Provider: Infectious Disease Jazmyn Reason for Consult: Osteomyelitis of foot. Will likely need long-term antibiotics Call Completed: Yes 01/01/18 16:54 Consult to Occupational Therapy [CONS] Routine Comment: Evaluate, develop and implement POC Reason for Consult: Post op, wound vac to the left foot, minimize as much weight as possible to the left foot, okay to touch down with heel with transferring. Must have post op shoe on. Does patient have active BEDREST order?: No Is patient medically & hemodynamically stable?: Yes Consult to Physical Therapy [CONS] Routine Comment: Evaluate, develop and implement POC Reason for Consult: Post op, wound vac to the left foot, minimize as much weight as possible to the left foot, okay to touch down with heel with transferring. Must have post op shoe on. Does patient have active BEDREST order?: No Is patient medically & hemodynamically stable?: Yes 01/02/18 08:10 Consult to Invasive Line Access Team [CONS] Routine Reason for Consult: home atb Line Type: Midline - Constitutional Vitals: Temp Pulse Resp BP Pulse Ox 98 F 82 16 137/81 95 01/10/18 11:12 01/10/18 11:12 01/10/18 11:12 01/10/18 11:12 01/10/18 11:12 General appearance: Present: A&O X 3, no acute distress, obese Exam: GEN: NAD CVS: RRR. S1, S2, No m/r/g RESP: CTAB ABD: Soft, NT, ND, +BS EXT: No edema. 2+ DP. No rashes NEURO: Nonfocal - Patient Status Disposition: Transfer Hospital Swing Bed Condition: Fair Overall status at discharge: patient is progressing back to baseline - Discharge Instructions Instructions: Osteomyelitis (DC), Chronic Hypertension (DC) Follow Up With: Ivette Delarosa CNP [Advanced Practice Nurse] - 01/21/18 9:00 am Elgin Hernandez CNP [Primary Care Provider] - (web request sent on 12/30/17) Additional Instructions: Please return to the ER if worsening of your current symptoms or development of increased swelling or new pain in your foot. If you develop fevers, chills, chest pain, or shortness of breath please return to the ER. Please take medication as prescribed: Please follow up with your PCP in 1-2 weeks Please follow up with Infectious Disease in 2-3 weeks - Diet and Activity Activity: increase activity as tolerated Diet: diabetic diet - VTE Documentation of Mechanical Device: Intermittent pneumatic compression device
--- NOTE | 2018-01-10 14:41 | Podiatry Progress Note ---
Date of Encounter: 01/10/18 Time of Encounter: 12:00 - Assessment and Plan (1) Osteomyelitis Status: Acute S/p Incision and drainage of left foot first metatarsal phalangeal joint with incision to bone cortex with bone biopsy of first proximal phalanx and first metatarsal. Incision and drainage of the left foot fifth metatarsal phalangeal joint ulceration with debridement and irrigation by Dr. Johnson on 12/27/17. S/p Partial resection of first metatarsal, left foot. Partial resection of proximal phalanx, left foot. Irrigation and debridement from 2 separate sites on the left foot. Bone biopsy, left foot on 12/31/[address] Johnson. Wound vac intact. Microbiology 12/27/17 19:00 Left Foot Anaerobic Culture - Final Anaerobic conditions were compromised due to failure of the anaerobic pouch to seal correctly, therefore, sample cannot be assessed for anaerobic organisms. 12/27/17 19:00 Left Foot Wound Culture - Final No pathogens isolated. Plan: Wound Vac to be changed every M-W-F. Wound vac paperwork has been completed. Small black simplace wound vac sponge,connected to 125mmhg low continuous suction. All surrounding to be prepped with AllKare barrier prep, then apply drape. After wound vac applied, betadine to be applied to the 1st webspace of toes #1, #2 left foot with 4x4 dry sterile gauze and kerlix. Antibiotic therapy per Infectious Disease - IV Penicillin x 6 weeks. The patient will need to minimize weightbearing to the left foot to allow the incision site/ulceration site to heal. Post op shoe ordered. PT/OT evaluated patient and recommended an ECF/SNF. Will continue to follow patient closely. Patient will need a 1 week f/u in Podiatry with Dr. Johnson. Discharge notes have been placed per internal Qualifiers: Osteomyelitis type: other acute Osteomyelitis location: foot Laterality: left Qualified Code(s): M86.172 - Other acute osteomyelitis, left ankle and foot (2) Uncontrolled diabetes mellitus Status: Chronic Qualifiers: Diabetes mellitus type: type 2 Diabetes mellitus halfway insulin use: with halfway use Diabetes mellitus complication status: with circulatory complication Diabetes mellitus complication detail: with peripheral angiopathy without gangrene Qualified Code(s): E11.51 - Type 2 diabetes mellitus with diabetic peripheral angiopathy without gangrene; E11.65 - Type 2 diabetes mellitus with hyperglycemia; E11.65 - Type 2 diabetes mellitus with hyperglycemia; E11.65 - Type 2 diabetes mellitus with hyperglycemia; E11.65 - Type 2 diabetes mellitus with hyperglycemia; 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 Incision and drainage of the left foot fifth metatarsal phalangeal joint ulceration with debridement and irrigation by Sessions on . Sessions took patient back to OR on 12/31/17 for a partial resection of first metatarsal, left foot. Partial resection of proximal phalanx , left foot. Irrigation and debridement from 2 separate sites on the left foot. Bone biopsy, left foot. Patient is lying in bed with dressing intact to the left foot with wound vac. Patient states she is feeling much better. Asking when she can leave. States she has minimal pain to her foot. Denies any fevers, chills, n/v or flu like symptoms Objective - Vital Signs Vital Signs: Vital Signs Temp Pulse Resp BP Pulse Ox 01/10/18 11:12 98 F 82 16 137/81 95 01/10/18 11:01 98.0 F 82 16 137/81 95 01/10/18 08:22 97.7 F 86 16 110/71 01/10/18 07:12 97.7 F 86 16 110/71 94 01/10/18 03:19 97.9 F 101 18 104/60 93 01/09/18 23:28 97.5 F L 104 18 110/74 96 01/09/18 19:36 97.8 F 98 18 122/71 95 01/09/18 15:28 97.8 F 84 16 114/66 94 Intake and Output 01/09/18 01/10/18 01/10/18 23:59 07:59 15:59 Intake Total 800 / 800 100 / 100 340 / 340 Output Total 2200 / 2200 1250 / 1250 1100 / 1100 Balance -1400 / -1400 -1150 / -1150 -760 / -760 Intake: IV Fluids 200 / 200 100 / 100 100 / 100 Pfizerpen 2,000,000 UNIT In 200 / 200 100 / 100 100 / 100 Dextrose 5% 100 ML @ 100 mls/hr IVPB Q4H [facility] Rx#:[id number] Oral 600 / 600 240 / 240 Output: Urine 1350 / 1350 400 / 400 900 / 900 Stool 850 / 850 850 / 850 200 / 200 Other: Meal Dinner Breakfast Percent of Meal Consumed 80% 70% # Voids 1 1 Weight 104.5 kg 104.5 kg Blood Glucose* 187 135 235 Patient Weight 01/10/18 23:59 Weight 104.5 kg - Exam Exam: General Examination: CONSTITUTIONAL: Alert, oriented, in no acute distress, non-toxic. EXTREMITIES: CFT 3 seconds all toes. Edema +1 and pedal pulses palpable. SKIN: Skin with decreased turgor, decreased subcutaneous tissue, skin thin and shiny with trophic changes associated with comorbidities as described in history.. NEUROLOGIC: minimal sensation to light or moderate touch S/P I&D left foot Noted surgical incision of left foot, dorsal extending between toes #1 and #2 of left foot to plantar aspect of foot. Loosely held together per retention sutures Wound vac in place and removed- scant thick dark red/brown drainage noted to canister 25ml Wound appearance improved since previous assessment, maceration surrounding wound has resolved. Edema and erythema has decreased. There remains a mild amount of periwound edema and erythema. Small opening left to plantar aspect of foot base of MT head #1 for drainage, wound vac packing removed, wound bed clean , minimal drainage. No odor. Healthy granulation tissue noted to wound base. Minimal fibrous tissue. No necrotic tissue noted. . No calf pain with manual compression - Lab Result Diagrams: 01/10/18 04:06 01/10/18 04:06 Labs: Abnormal lab results WBC 11.9 K/mcL (4.3-11.1) H 01/10/18 04:06 RBC 3.76 M/mcL (3.82-4.97) L 01/10/18 04:06 Hgb 10.3 g/dL (11.5-15.4) L 01/10/18 04:06 Hct 32.3 % (35.3-44.9) L 01/10/18 04:06 MCH 27.4 pg (28.0-33.3) L 01/10/18 04:06 ESR 96 mm/hr (0-15) H 01/07/18 06:02 Sodium 133 mEq/L (136-145) L 01/10/18 04:06 BUN 31 mg/dL (8-23) H 01/10/18 04:06 Creatinine 2.17 mg/dL (0.60-1.20) H 01/10/18 04:06 Est GFR ( Amer) 28 (> 60) L 01/10/18 04:06 Est GFR (Non-Af Amer) 23 (> 60) L 01/10/18 04:06 Glucose 119 mg/dL (70-105) H 01/10/18 04:06 POC Glucose 235 mg/dL (70-99) H 01/10/18 10:59 Phosphorus 6.0 mg/dL (2.7-4.5) H 01/10/18 04:06 Direct Bilirubin 0.3 mg/dL (0.0-0.2) H 12/27/17 18:21 AST 7 Units/L (13-39) L 12/27/17 18:21 C-Reactive Protein 77 mg/L (Less than 10) H 01/07/18 06:02 Albumin 3.1 g/dL (3.5-5.7) L 12/27/17 18:21 Globulin 4.3 g/dL (2.4-3.5) H 12/27/17 18:21 Albumin/Globulin Ratio 0.7 (1.1-2.2) L 12/27/17 18:21 Vancomycin Trough 30 mcg/mL (5-10) H 12/30/17 03:45 - VTE Documentation of Mechanical Device: Intermittent pneumatic compression device Consult Discharge Plan - Plan Instructions: Osteomyelitis (DC), Chronic Hypertension (DC) Additional Instructions: Please return to the ER if worsening of your current symptoms or development of increased swelling or new pain in your foot. If you develop fevers, chills, chest pain, or shortness of breath please return to the ER. Please take medication as prescribed: Please follow up with your PCP in 1-2 weeks Please follow up with Infectious Disease in 2-3 weeks Referrals: Ivette Delarosa, [employer] [Advanced Practice Nurse] - 01/21/18 9:00 am Elgin Hernandez CNP [Primary Care Provider] - (web request sent on 12/30/17) Prescriptions: OxyCODONE/APAP 10/325 [Percocet 10/325 MG] 1 each PO Q6HR PRN 2 Days #8 tablet PRN Reason: Moderate to Severe Pain Penicillin G Potassium [Pfizerpen] 2,000,000 unit IVPB Q4HR #162 vial
== END 2018-01-10 18:32 | disposition other institution (70) | DRG 854 ==
LOC: 2NNU → SUATTDRO 19:36 → 2ANU 12-29 16:46
PROVIDERS: ADMIT Hospitalist; ATTEND Internal Medicine